=== PATIENT | female | born 1985 | race Caucasian/White ===

== ENCOUNTER → 2017-10-18 16:36 | Outpatient (CLI) | payer BC, SELFPAY ==
[2017-10-18 18:02] LABS: hCG Titer Quant., Serum 5107 mIU/mL (<9 non-preg)
== END ==
PROVIDERS: Family Provider Family Medicine; PCP Family Medicine; Visit Provider Nurse Practitioner Women's Health
DX: Z34.90 Encounter for supervision of normal pregnancy, unspecified, unspecified trimester (principal)
CPT/HCPCS: 36415; 84702

== ENCOUNTER → 2017-11-05 18:13 | Outpatient (CLI) | payer BC, SELFPAY ==
[2017-11-05 20:42] LABS: Chlamydia Trachomatis by PCR Negative (Negative); Neisserai gonorrhoeae by PCR Negative (Negative); Probe Check PASS; Sample Adequacy Control PASS; Specimen Processing Control PASS
== END ==
PROVIDERS: Family Provider Family Medicine; PCP Family Medicine; Visit Provider Obstetrics & Gynecology
DX: Z34.90 Encounter for supervision of normal pregnancy, unspecified, unspecified trimester (principal)
CPT/HCPCS: 87086; 87088; 87186; 87491; 87591

== ENCOUNTER → 2017-12-05 10:56 | Outpatient (CLI) | payer BC, SELFPAY ==
[2017-12-05 11:51] LABS: Absolute Lymphocyte Count 1.95 X10^3/ul (0.83-4.51); Basophil# 0.02 X10^3/uL; Basophil% 0.3 % (0-1); Eosinophil# 0.19 X10^3/uL; Eosinophils% 2.4 % (0-5); Hemoglobin 12.4 g/dl (12.0-15.0); Lymphocyte # 1.95 X10^3/ul (4.0); Lymphocyte % 24.9 % (19-41); Mean Corp Hgb Conc 32.6 g/gl (32-36); Mean Corpuscular Hgb 28.6 pg (27.0-32.0); Mean Corpuscular Volume 87.6 fL (81-99); Mean Platelet Vol. 9.4 fl (6.2-12.0); Monocyte# 0.62 X10^3/uL; Monocyte% 7.9 % (0-10); Neutrophil # 5.03 X10^3/uL (2.7-7.7); Neutrophil % 64.4 % (47-70); Platelet Count 281 K/mm3 (150-450); RBC Distribution Width CV 15.3 % (11.6-14.6); RBC Distribution Width SD 49.4 fl (35.1-43.9); Red Blood Count 4.34 M/mm3 (4.2-5.4); White Blood Count 7.8 K/mm3 (4.4-11.0)
[2017-12-05 11:52] LABS: POSITIVE COUNT NO; POSITIVE DIFFERENTIAL NO; POSITIVE MORPHOLOGY NO
[2017-12-05 12:33] LABS: T4 Free Direct 1.16 ng/dL (0.76-1.46)
[2017-12-05 13:27] LABS: HIV - WCH Non-Reactive (Nonreactive)
[2017-12-06 13:50] LABS: HEPATITIS B SURFACE AG Negative (Negative)
[2017-12-07 03:47] LABS: Rapid Plasmin Reagin (RPR) NONREACTIVE (NONREACTIVE)
== END ==
PROVIDERS: Family Provider Family Medicine; PCP Family Medicine; Visit Provider Obstetrics & Gynecology
DX: O09.91 Supervision of high risk pregnancy, unspecified, first trimester (principal); Z3A.00 Weeks of gestation of pregnancy not specified
CPT/HCPCS: 36415; 84439; 84443; 85025; 86592; 86703; 86762; 86850; 86900; 87340

== ENCOUNTER → 2017-12-31 18:11 | Outpatient (CLI) | payer BC, SELFPAY | PROVIDERS: Visit Provider Obstetrics & Gynecology | DX: O09.90 Supervision of high risk pregnancy, unspecified, unspecified trimester (principal); Z3A.00 Weeks of gestation of pregnancy not specified | CPT/HCPCS: 87086; 87088 ==

== ENCOUNTER → 2018-01-28 13:51 | Outpatient (CLI) | payer BC, SELFPAY | PROVIDERS: Family Provider Family Medicine; PCP Family Medicine; Visit Provider Obstetrics & Gynecology | DX: O09.92 Supervision of high risk pregnancy, unspecified, second trimester (principal); Z3A.19 19 weeks gestation of pregnancy | CPT/HCPCS: 76805 ==

== ENCOUNTER → 2018-02-25 15:56 | Outpatient (CLI) | payer BC, SELFPAY | PROVIDERS: Family Provider Family Medicine; PCP Family Medicine; Visit Provider Obstetrics & Gynecology | DX: O23.40 Unspecified infection of urinary tract in pregnancy, unspecified trimester (principal); Z3A.00 Weeks of gestation of pregnancy not specified | CPT/HCPCS: 87086; 87088 ==

== ENCOUNTER → 2018-04-08 12:25 | Outpatient (CLI) | payer BC, SELFPAY ==
[2018-04-08 13:30] LABS: Absolute Neutrophil Count 6.4 X10^3/uL (2.0-7.7); Eosinophil# 0.11 X10^3/uL; Eosinophils% 1.3 % (0-5); Hematocrit 35.9 % (37-47); Hemoglobin 11.8 g/dl (12.0-15.0); Lymphocyte % 18.5 % (19-41); Mean Corp Hgb Conc 32.9 g/gl (32-36); Mean Corpuscular Volume 88.2 fL (81-99); Mean Platelet Vol. 9.3 fl (6.2-12.0); Monocyte# 0.56 X10^3/uL; Monocyte% 6.5 % (0-10); Neutrophil # 6.37 X10^3/uL (2.7-7.7); Neutrophil % 73.4 % (47-70); Platelet Count 234 K/mm3 (150-450); RBC Distribution Width CV 14.3 % (11.6-14.6); RBC Distribution Width SD 46.5 fl (35.1-43.9); Red Blood Count 4.07 M/mm3 (4.2-5.4); White Blood Count 8.7 K/mm3 (4.4-11.0)
[2018-04-08 13:39] LABS: Glucose Challenge Gest 1H 50g 160 mg/dL (70-140)
[2018-04-08 13:45] LABS: POSITIVE COUNT NO; POSITIVE DIFFERENTIAL NO; POSITIVE MORPHOLOGY NO
== END ==
PROVIDERS: Nurse Practitioner Women's Health; Family Provider Family Medicine; PCP Family Medicine; Referring Provider Obstetrics & Gynecology; Visit Provider Obstetrics & Gynecology
DX: O09.90 Supervision of high risk pregnancy, unspecified, unspecified trimester (principal); Z3A.00 Weeks of gestation of pregnancy not specified
CPT/HCPCS: 36415; 82950; 85025; 86850; 86900

== ENCOUNTER → 2018-04-15 10:02 | Outpatient (CLI) | payer BC, SELFPAY ==
[2018-04-15 11:06] LABS: Glucose GTT-Gestation. Fasting 82 mg/dL (<105)
[2018-04-15 11:55] LABS: Glucose GTT-Gestational 1 Hr 181 mg/dL (<190)
[2018-04-15 13:07] LABS: Glucose GTT-Gestational 2 Hr 130 mg/dL (<165)
[2018-04-15 13:43] LABS: Glucose GTT-Gestational 3 Hr 97 L (<145)
== END ==
PROVIDERS: Family Provider Family Medicine; PCP Family Medicine; Referring Provider Nurse Practitioner Women's Health; Visit Provider Nurse Practitioner Women's Health
DX: O99.810 Abnormal glucose complicating pregnancy (principal); Z3A.00 Weeks of gestation of pregnancy not specified
CPT/HCPCS: 36415; 82951; 82952

== ENCOUNTER → 2018-04-29 18:28 | Outpatient (CLI) | payer BC, SELFPAY | PROVIDERS: Family Provider Family Medicine; PCP Family Medicine; Referring Provider Nurse Practitioner Women's Health; Visit Provider Nurse Practitioner Women's Health | DX: O23.599 Infection of other part of genital tract in pregnancy, unspecified trimester (principal); N76.0 Acute vaginitis; Z3A.00 Weeks of gestation of pregnancy not specified | CPT/HCPCS: 87086; 87088 ==

== ENCOUNTER → 2018-05-29 17:01 | Outpatient (CLI) | payer SELFPAY ==
[2018-05-29 13:12] VITALS: BMI 31.1
--- OUTSIDE RECORDS SUMMARY | 2018-07-15 22:11 | XMS RPT_ITS ---
:1985 Author Organization [place] Support Name Relationship Address Phone DEANN, LIZA Unavailable Unavailable + [place] [address] [facility] [place] Unavailable [address] + [place] [address] RADHA JANNET Unavailable [address] + [place] [address] DEANN, LIZA Unavailable Unavailable + [place] [address] [facility] [place] Unavailable [address] + [place] [address] MARJORIEER JANNET Unavailable [address] + [place] [address] DEANN, LIZA Unavailable Unavailable + [place] [address] [facility] [place] Unavailable [address] + [place] [address] RADHA JANNET Unavailable [address] + [place] [address] DEANN, LIZA Unavailable Unavailable + [place] [address] [facility] [place] Unavailable [address] + [place] [address] MARJORIEER JANNET Unavailable [address] + [place] [address] DEANN, LIZA Unavailable Unavailable + [place] [address] [facility] [place] Unavailable [address] + [place] [address] RADHA JANNET Unavailable [address] + [place] [address] DEANN, LIZA Unavailable 0 + [place] [address] [facility] [place] Unavailable [address] + [place] [address] DEANN, LIZA Unavailable Unavailable + [place] [address] [facility] [place] Unavailable [address] + [place] [address] DEANN, LIZA Unavailable 0 + [place] [address] [facility] [place] Unavailable [address] + [place] [address] DEANN, LIZA Unavailable . + [place] [address] [facility] [place] Unavailable [address] + [place] [address] DEANN, LIZA Unavailable Unavailable + [place] [address] [facility] [place] Unavailable [address] + [place] [address] DEANN, LIZA Unavailable . + [place] [address] [facility] [place] Unavailable [address] + [place] [address] DEANN, LIZA Unavailable . + [place] [address] [facility] [place] Unavailable [address] + [place] [address] DEANN, LIZA Unavailable Unavailable + [place] [address] [facility] [place] Unavailable [address] + [place] [address] DEANN, LIZA Unavailable Unavailable + [place] [address] [facility] [place] Unavailable [address] + [place] [address] DEANN, LIZA Unavailable . + [place] [address] [facility] [place] Unavailable [address] + [place] [address] DEANN, LIZA Unavailable Unavailable + [place] [address] [facility] [place] Unavailable [address] + [place] [address] DEANN, LIZA Unavailable . + [place] [address] [facility] [place] Unavailable [address] + [place] [address] DEANN, LIZA Unavailable . + [place] [address] [facility] [place] Unavailable [address] + [place] [address] DEANN, LIZA Unavailable Unavailable + [place] [address] [facility] [place] Unavailable [address] + [place] [address] DEANN, LIZA Unavailable Unavailable + [place] [address] [facility] [place] Unavailable [address] + [place] [address] DEANN, LIZA Unavailable . + [place] [address] [facility] [place] Unavailable [address] + [place] [address] DEANN, LIZA Unavailable Unavailable + [facility] [place] Unavailable [address] + [place] [address] DEANN, LIZA Unavailable Unavailable + [facility] [place] Unavailable [address] + [place] [address] [facility] [place] Unavailable . + [place] [address] [facility] [place] Unavailable . + [place] [address] [facility] [place] Unavailable / + [place] [address] [facility] [place] Unavailable / + [place] [address] [facility] [place] Unavailable / + [place] [address] RUFENER, JANNET Unavailable [address] + [place] [address] [facility] Unavailable Unavailable Unavailable Deann, Lzia Unavailable Unavailable + Deann, Liza Unavailable Unavailable + JANNET WILEY Unavailable [address] + [place] [address] [facility] Unavailable Unavailable Unavailable Care Team Providers Name Role Phone [place] Attending Unavailable Finneran, Landon Referring Unavailable Finneran, Landon Primary Care Unavailable MidhaJana Attending Unavailable Finneran, Landon Referring Unavailable Finneran, Landon Primary Care Unavailable Marcanthony, Shruthi Attending Unavailable Finneran, Landon Referring Unavailable Marcanthony, Shruthi Attending Unavailable Marcanthony, Shruthi Referring Unavailable Finneran, Landon Primary Care Unavailable Marcanthony, Shruthi Attending Unavailable Finneran, Landon Referring Unavailable Marcanthony, Shruthi Admitting Unavailable Marcanthony, Shruthi Attending Unavailable Marcanthony, Shruthi Referring Unavailable Finneran, Landon Primary Care Unavailable Marcanthony, Shruthi Attending Unavailable Finneran, Landon Primary Care Unavailable Marcanthony, Shruthi Referring Unavailable Marcanthony, Shruthi Attending Unavailable Marcanthony, Shruthi Referring Unavailable Finneran, Landon Primary Care Unavailable Marcanthony, Shruthi Admitting Unavailable Marcanthony, Shruthi Admitting Unavailable Marcanthony, Shruthi Attending Unavailable Marcanthony, Shruthi Referring Unavailable Finneran, Landon Primary Care Unavailable Marcanthony, Shruthi Consulting Unavailable Marcanthony, Shruthi Admitting Unavailable KevanMayra Attending Unavailable Marcanthony, Shruthi Referring Unavailable Finneran, Landon Primary Care Unavailable Marcanthony, Shruthi Consulting Unavailable KevanMayra Attending Unavailable Primay Care Physicia, No Referring Unavailable Primay Care Physicia, No Primary Care Unavailable RobardsMayra Attending Unavailable RobardsMarryy Referring Unavailable Finneran, Landon Primary Care Unavailable Marcanthony, Shruthi Attending Unavailable Finneran, Landon Referring Unavailable Marcanthony, Shruthi Attending Unavailable Finneran, Landon Referring Unavailable Finneran, Landon Primary Care Unavailable Marcanthony, Shruthi Attending Unavailable Finneran, Landon Primary Care Unavailable Marcanthony, Shruthi Attending Unavailable Finneran, Landon Referring Unavailable Finneran, Landon Primary Care Unavailable Marcanthony, Shruthi Attending Unavailable Marcanthony, Shruthi Referring Unavailable Finneran, Landon Primary Care Unavailable CIANCONEMANDY Attending Unavailable Finneran, Landon Primary Care Unavailable Marcanthony, Shruthi Attending Unavailable Finneran, Landon Referring Unavailable Finneran, Landno Primary Care Unavailable Marcanthony, Shruthi Attending Unavailable Finneran, Landon Primary Care Unavailable Marcanthony, Shruthi Referring Unavailable Kevan, Mayra Attending Unavailable Primay Care Physicia, No Referring Unavailable Primay Care Physicia, No Primary Care Unavailable Marcanthony, Shruthi Attending Unavailable Marcanthony, Shruthi Referring Unavailable Finneran, Landon Primary Care Unavailable Marcanthony, Shruthi Attending Unavailable Finneran, Landon Referring Unavailable Finneran, Landon Primary Care Unavailable Marcanthony, Shruthi Attending Unavailable Finneran, Landon Referring Unavailable Finneran, Landon Primary Care Unavailable Marcanthony, Shruthi Attending Unavailable Marcanthony, Shruthi Referring Unavailable Finneran, Landon Primary Care Unavailable Robards, Mayra Attending Unavailable Finneran, Landon Referring Unavailable Marcanthony, Shruthi Attending Unavailable Marcanthony, Shruthi Referring Unavailable Finneran, Landon Primary Care Unavailable Kevan, Mayra Attending Unavailable Kevan, Mayra Referring Unavailable Finneran, Landon Primary Care Unavailable Marcanthony, Shruthi Attending Unavailable Finneran, Landon Referring Unavailable Robards, Mayra Attending Unavailable Finneran, Landon Referring Unavailable Kevan, Mayra Attending Unavailable Finneran, Landon Primary Care Unavailable Kevan, Mayra Referring Unavailable Kevan, Mayra Attending Unavailable Finneran, Landon Referring Unavailable PROBLEMS PROBLEMS DATE TYPE CONDITION / CODE ATTENDING STATUS SOURCE 06/15/2018 Unknown O09.893 - [place], Active [facility] Supervision of [facility] risk Hospital pregnancies, third Repository trimester / O09.893(ICD-10) 06/14/2018 Unknown O09.899 - [place], Active [facility] Supervision of [facility] risk Hospital pregnancies, Repository unspecified trimester / O09.899(ICD-10) 06/14/2018 Unknown O99.89 - Other [place], Active [place] specified diseases [facility] and [facility] complicating Repository , childbirth and the puerperium / O99.89(ICD-10) 06/14/2018 Unknown R82.71 - Marcanthony, Active [place] Bacteriuria / [facility] R82.71(ICD-10) Hospital Repository 06/14/2018 Unknown Z3A.36 - 36 weeks Marcanthony, Active [place] gestation of [facility] / Hospital Z3A.36(ICD-10) Repository 06/14/2018 Unknown E03.9 - Marcanthony, Active [place] Hypothyroidism, [facility] unspecified / Hospital E03.9(ICD-10) Repository 06/14/2018 Unknown O09.93 - Marcanthony, Active [place] Supervision of [facility] high risk Hospital , Repository unspecified, third trimester / O09.93(ICD-10) 06/14/2018 Unknown O99.810 - Abnormal Marcanthony, Active [place] glucose [facility] complicating Hospital / Repository O99.810(ICD-10) 06/14/2018 Unknown O99.343 - Other Marcanthony, Active [place] mental disorders [facility] complicating Hospital , third Repository trimester / O99.343(ICD-10) 06/14/2018 Unknown F32.9 - Major Marcanthony, Active [place] depressive [facility] disorder, single Hospital episode, Repository unspecified / F32.9(ICD-10) 06/14/2018 Unknown B95.1 - Marcanthony, Active [place] Streptococcus, [facility] group B, as the Hospital cause of diseases Repository classified elsewhere / B95.1(ICD-10) 05/31/2018 Unknown Z34.90 - Encounter Marcanthony, Active [place] for supervision of [facility] normal , Hospital unspecified, Repository unspecified trimester / Z34.90(ICD-10) 04/30/2018 Unknown O23.599 - Robards, Mayra Active [facility] Infection of other Community part of genital Hospital tract in Repository , unspecified trimester / O23.599(ICD-10) 04/30/2018 Unknown N76.0 - Acute Kevan, Mayra Active [facility] vaginitis / Community N76.0(ICD-10) Hospital Repository 04/17/2018 Unknown Z67.91 - Marcanthony, Active [facility] Unspecified blood [facility] type, Rh negative Hospital / Z67.91(ICD-10) Repository 04/17/2018 Unknown Z3A.30 - 30 weeks Eliot, Active [place] gestation of [facility] / Hospital Z3A.30(ICD-10) Repository 04/08/2018 Unknown O09.90 - Mayra Mathur Active [place] Supervision of [facility] , Repository unspecified, unspecified trimester / O09.90(ICD-10) 04/08/2018 Unknown Z23 - Encounter Mayra Mathur Active [place] for immunization / Community Z23(ICD-10) Hospital Repository 02/25/2018 Unknown O23.40 - [facility], Active [facility] Unspecified [facility] infection of Hospital urinary tract in Repository , unspecified trimester / O23.40(ICD-10) 02/25/2018 [facility] other [facility] Hospital pregnancies, Repository second trimester / O09.892(ICD-10) 02/25/2018 Unknown O09.92 - [place], Active [facility] Supervision of [facility] Hospital , Repository unspecified, second trimester / O09.92(ICD-10) 02/25/2018 Unknown Z3A.23 - 23 weeks [place], Active [facility] gestation of [facility] / Hospital Z3A.23(ICD-10) Repository 12/05/2017 Unknown O09.891 - [place], Active [place] Supervision of [facility] risk Hospital pregnancies, first Repository trimester / O09.891(ICD-10) 12/05/2017 Unknown O09.91 - [place], Active [place] Supervision of [facility] risk Hospital , Repository unspecified, first trimester / O09.91(ICD-10) 10/11/2017 Admitting Thyrotoxicosis, Midha, Jana [facility] unsp without System thyrotoxic crisis Repository or storm / E05.90(ICD-10) 10/11/2017 Admitting Thyroiditis, Midha, Jana Active [facility] Health Diagnosis unspecified / System E06.9(ICD-10) Repository PROCEDURES PROCEDURES No Procedure Records FoundRESULTS RESULTS DISCHARGE INSTRUCTION Observed: 06/17/2018 Status: F Source: REJI 3:40 AM [facility] REPOSITORY [facility] Medical Records Department [address] [place] [address] Instructions for Home/Discharge Instructions 06/17/18 0340 MR#: [id number] Acct: [id number] Name: ELIEL WILEY Rep #: [id number] : 1985 33 From: Shruthi Mccabe MD PCP: Landon Bourgeois MD Status: ADM IN Discharge Diet: No Restrictions Discharge Activity: Return to Normal Activity, May not drive while taking narcotic pain medications., May Shower May resume sexual activity in: 4-6 weeks Call your doctor if your incision/area has: Continuous Slow Oozing, Sudden Increased Bleeding, Increased Pain/ Swelling, Increased Redness, Foul Smelling Discharge Additional Instructions: If you experience any of the following, contact your healthcare provider. * Bleeding that soaks a pad every hour for 2 hours * Fever 100.4 or higher * Unrelieved incision or abdominal pain * Swelling, redness, discharge or bleeding from your incision or episiotomy site * Your incision begins to separate * Problems urinating (including inability to urinate or burning while urinating). * Visual changes * Severe headache * Flu-like symptoms * Pain or redness in one of both of your breasts * Pain, warmth, tenderness or swelling in your legs, especially the calf area * Frequent nausea and vomiting * Symptoms of depression or anxiety If you experience any of the following, call 911 or go to the nearest Emergency Room. * Chest pain * Problems breathing * Seizure activity * Partial or complete paralysis of a body part, slurred speech, weakness or drooping of the face, or a sudden inability to walk or hold your balance Allergies/Adverse Reactions: Allergies sertraline [From Zoloft] Allergy (Verified 06/14/18 11:41) Other dizziness, fainting alcohol Adverse Reaction (Verified 06/14/18 11:41) Other redness from topical rubbing alcohol Medications to take at Discharge Calcium Carbonate [Calcium] 500 mg PO DAILY 02/01/17 ascorbic acid (vitamin C) 500 mg capsule mg PO 10/18/17 cholecalciferol (vitamin D3) 2,000 unit capsule 2,000 unit PO QDAY 10/18/17 escitalopram 10 mg tablet 10 mg PO QDAY 10/18/17 lactobacillus combination no.8 3 billion cell capsule 3,000 mmu cells PO QDAY 10/18/17 levothyroxine 125 mcg capsule 125 mcg PO QDAY 10/18/17 magnesium oxide 400 mg capsule 400 mg PO QDAY cap 10/18/17 multivitamin tablet 1 tab PO QDAY 10/18/17 omega-3 fatty acids 1,000 mg capsule 1,000 mg PO QDAY 10/18/17 Nasal spray INTRANASAL 12/05/17 Nature Made Cranberry .ROUTE 12/05/17 guaifenesin 100 mg/5 mL oral liquid 200 mg PO Q4H PRN 04/08/18 ondansetron HCl 4 mg tablet 4 mg PO Q6H PRN #60 tab 04/08/18 Citalopram [Celexa] 20 mg PO DAILY #30 tab 06/04/18 Please Follow Up With: Shruthi Mccabe MD - [phone] When: Call to make an appointment with your doctor in 6 weeks. If you had elevated Blood pressure or 4th degree laceration you will need to be seen in 2 weeks. Primary Care Physician: Landon Bourgeois MD [Primary Care Provider] - Test Results: Test results from this visit will be discussed in further detail at your follow-up appointment, if applicable. 06/17/18 0340 <Electronically signed by Shruthi Mccabe MD> Date Shruthi Mccabe MD CC: Landon Bourgeois; Landon Bourgeois MD Signed THYROID STIM HORMONE Collected: 06/16/2018 Status: F Source: [place] (TSH) 7:45 AM [facility] REPOSITORY TYPE CODE TESTS RESULT OUT OF RANGE REFERENCE UNITS LAB L501.9520 0.358-3.74 uIU/mL Normal TSH 2.26 Performed By: #### L501.9520, L506.0400 #### [facility] [address] [place], [address] T4 FREE DIRECT Collected: 06/16/2018 Status: F Source: [place]JI 7:45 AM [facility] REPOSITORY TYPE CODE TESTS RESULT OUT OF RANGE REFERENCE UNITS LAB L506.0400 0.76-1.46 ng/dL Normal T4 FREE 0.92 DIRECT Performed By: #### L501.9520, L506.0400 #### [facility] [address] [place], [address] RH NEGATIVE MOM Collected: 06/16/2018 Status: F Source: [place] WORKUP 7:45 AM [facility] REPOSITORY Order Comment: Baby's Full Name travon wiley Baby's Bracelet # [id number] Baby's MR # [id number] TYPE CODE TESTS RESULT OUT OF RANGE REFERENCE UNITS LAB B101.0425 O Normal MOM'S ABO NEGATIVE RH LAB B101.0450 Normal MOM'S ABS NEGATIVE LAB B101.0500 NEGATIVE Normal NEGATIVE SCREEN LAB B101.0950 O Normal BABY'S POSITIVE ABO RH LAB B101.1000 NEGATIVE Normal BABY'S NEGATIVE JORDAN Performed By: #### B101.0300 #### [facility] [address] [place], [address] OPERATIVE REPORT Observed: 06/16/2018 Status: F Source: REJI 6:47 AM [facility] REPOSITORY [facility] Medical Records Department [address] [place] [address] Operative Report 06/16/18 0645 MR#: [id number] Acct: [id number] Name: ELIEL WILEY Rep #: [id number] : 1985 33 From: Shruthi Mccabe MD PCP: Landon Bourgeois MD Status: ADM IN Location: [id number] - Problem List (1) Active labor at term Status: Acute (2) Positive GBS test Status: Acute (3) Depression affecting in third trimester, antepartum Status: Acute Comment: lexapro per PCP, counseled regarding risks of medication, counseling encouraged (4) Abnormal glucose affecting Status: Acute Comment: 3 hr GTT ordered (5) Status: Acute Qualifiers: Comment: genetic, carrier, and NT screening declined (6) Rh negative status during Status: Acute Qualifiers: Comment: rhogam at 28 weeks and PRN (7) Short interval between pregnancies affecting , antepartum Status: Acute (8) Supervision of high-risk Status: Acute Qualifiers: Comment: PRR JANKI 06/22/18 Girl PC Erika Adames (9) Asymptomatic bacteriuria during in first trimester Status: Acute Comment: macrobid, needs repeat culture (10) Hypothyroid Status: Acute Qualifiers: Comment: Started levothyroxine 10/18/17 Vaginal Delivery Maternal Presentation: Active Labor 33-year-old at 39 weeks presents in active labor and delivered precipitously Amniotic Membrane Rupture Type: Spontaneous Amniotic Fluid Description: Clear Final JANKI: 06/22/18 Gestational age: 39 Weeks and 1 Days Date of Procedure: 06/16/18 Pre-Operative Diagnosis: Active labor Post-Operative Diagnosis: Same Surgery/ Procedure Performed: Spontaneous Vaginal Delivery Type of Anesthesia: None Description of Procedure: Patient began pushing and delivered the head in the JEFFREY presentation. The head was delivered atraumatically and a loose nuchal cord x1 was easily identified and reduced over the 's head. The anterior and posterior shoulders delivered without complication followed by the rest of the and the was placed on the maternal abdomen. Delayed cord clamping was employed for approximately 60 seconds. Cord was clamped and cut and gentle traction was applied to the cord and the placenta delivered spontaneously immediately following it was noted to be intact with three-vessel cord. The perineum and vagina were inspected and noted to have no significant laceration. EBL was 150 cc. Patient and infant tolerated delivery well. Presentation: JEFFREY Placental Delivery Description: Spontaneous Placenta Disposition: [facility] Cord Vessel Description: 3 Vessels Cord Entanglement: Around neck x 1, loose Estimated Blood Loss: 150 Infant A gender: Female Episiotomy Description: None Laceration: None Medications given after delivery: IV Pitocin Complications: None 06/16/18 0647 <Electronically signed by Shruthi Mccabe MD> Date Shruthi Mccabe MD CC: Landon Bourgeois; Landon Bourgeois MD; Shruthi Mccabe MD Signed HISTORY AND PHYSICAL Observed: 06/16/2018 Status: F Source: [place] EXAM 6:45 AM [facility] REPOSITORY [facility] Medical Records Department [address] [place] [address] History and Physical 06/16/18 0642 MR#: [id number] Acct: [id number] Name: ELIEL WILEY Rep #: [id number] : 1985 33 From: Shruthi Mccabe MD PCP: Landon Bourgeois MD Status: ADM IN Y [id number] (1) Active labor at term Status: Acute (2) Positive GBS test Status: Acute (3) Depression affecting in third trimester, antepartum Status: Acute Comment: lexapro per PCP, counseled regarding risks of medication, counseling encouraged (4) Abnormal glucose affecting Status: Acute Comment: 3 hr GTT ordered (5) Status: Acute Qualifiers: Comment: genetic, carrier, and NT screening declined (6) Rh negative status during Status: Acute Qualifiers: Comment: rhogam at 28 weeks and PRN (7) Short interval between pregnancies affecting , antepartum Status: Acute (8) Supervision of high-risk Status: Acute Qualifiers: Comment: PRR JANKI 06/22/18 Girl PC Erika Adames (9) Asymptomatic bacteriuria during in first trimester Status: Acute Comment: macrobid, needs repeat culture (10) Hypothyroid Status: Acute Qualifiers: Comment: Started levothyroxine 10/18/17 History Date of Admission: 06/16/18 Final JANKI: 06/22/18 Gestational age: 39 Weeks and 1 Days History of this : This is a 33 year-old, at 39w1d weeks gestational age presents in active labor and was initially 3 cm and then may change to complete within an hour and delivered precipitously without complication. Medical History: Medical History (Last Reviewed 06/14/18 @ 11:41 by Cassy Pollard) Anixety and Depression Hypothyroidism E03.9 Allergies sertraline [From Zoloft] Allergy (Verified 06/14/18 11:41) Other dizziness, fainting alcohol Adverse Reaction (Verified 06/14/18 11:41) Other redness from topical rubbing alcohol Home Medications: Home Medications Calcium Carbonate [Calcium] 500 mg PO DAILY 02/01/17 ascorbic acid (vitamin C) 500 mg capsule mg PO 10/18/17 cholecalciferol (vitamin D3) 2,000 unit capsule 2,000 unit PO QDAY 10/18/17 escitalopram 10 mg tablet 10 mg PO QDAY 10/18/17 lactobacillus combination no.8 3 billion cell capsule 3,000 mmu cells PO QDAY 10/18/17 levothyroxine 125 mcg capsule 125 mcg PO QDAY 10/18/17 magnesium oxide 400 mg capsule 400 mg PO QDAY cap 10/18/17 multivitamin tablet 1 tab PO QDAY 10/18/17 omega-3 fatty acids 1,000 mg capsule 1,000 mg PO QDAY 10/18/17 Nasal spray INTRANASAL 12/05/17 Nature Made Cranberry .ROUTE 12/05/17 guaifenesin 100 mg/5 mL oral liquid 200 mg PO Q4H PRN 04/08/18 ondansetron HCl 4 mg tablet 4 mg PO Q6H PRN #60 tab 04/08/18 Citalopram [Celexa] 20 mg PO DAILY #30 tab 06/04/18 Smoking Status: Never smoker Alcohol: None Number of Fetus(es): 1 Heart Tracins moderate variability reactive no decelerations category 1 tracing TOCO Analysis: Every 2 to 3 minutes History Past Pregnancies: Past Pregnancies Previous term vaginal delivery uncomplicated Labs: Laboratory Results Mom's Labs AND Results Course Did the patient receive Yes care? Labs HIV/AIDS Non-Reactive Current Obstetrical History Gestational Diabetes No Incompetent Cervix No Infertility No IUGR No Macrosomia No Hypertension/Pre-eclampsia No Placenta Previa/Abruption No PTL/PROM No Uterine anomaly No Oligohydramnios No Polyhydramnios No Multiple gestation No Past Medical History Asthma No Diabetes No Hypertension No Heart disease No Mitral valve prolapse No Neurologic/Seizure disorder/ No Migraines Kidney disease No Liver disease No Varicosities No Clotting disorders/Hx of DVT No Thyroid Dysfunction Yes: should be taking synthroid Other medical diseases No Psychiatric disorders No Major trauma No Abnormal PAP smear No Sleep apnea No Mammogram in the last 2 years No Social History Marital Status: Alleged father jannet wiley Hx Smoking No Smoking Status Never smoker Expected Delivery Method: Spontaneous Vaginal Review of Systems Constitutional: Denies: Fever, Malaise Eyes: Denies: Blurred vision, Vision Change HEENT: Denies: Head Aches, Visual Changes Cardiovascular: Denies: Chest Pain, Palpitations Respiratory: Denies: Cough, Shortness of Breath, Wheezing Gastrointestinal: Denies: Abdominal Pain, Diarrhea, Nausea, Vomiting Genitourinary: Denies: Dysuria, Hematuria Musculoskeletal: Denies: Joint Pain, Muscle pain Skin: Denies: Lesions, Rash Neurological: Denies: Blurred vision, Focal weakness, Headaches Psychiatric: Denies: Anxiety, Depression Endocrine: Denies: Heat/ Cold Intolerance Hematologic/ Lymphatic: Denies: Easy Bruising, Easy Bleeding Physical Exam General: Alert, Cooperative, No apparent distress HEENT: Atraumatic, Normocephalic. Negative for: Thyromegaly, Lymphadenopathy Cardiovascular: Regular rate Lungs: Normal air movement Abdomen: Soft, Non Tender, Gravid Neurological: Deep Tendon Reflexes 2+/4 and Symmetrical, Neuro grossly intact. 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 Negative for: Vulvar lesions Estimated gestational size: Appropriate for gestational size Presentation: Cephalic Assessment/Plan All Active Problems (Last Reviewed 06/14/18 @ 11:41 by Cassy Pollard) Active labor at term (Acute) Positive GBS test (Acute) Depression affecting in third trimester, antepartum (Acute) Abnormal glucose affecting (Acute) (Acute) Rh negative status during (Acute) Short interval between pregnancies affecting , antepartum (Acute) Supervision of high-risk (Acute) Asymptomatic bacteriuria during in first trimester (Acute) Hypothyroid (Acute) This is a 33 year-old, at 39 weeks gestational age presents in active labor and delivered precipitously within an hour and a half of presentation Routine care GBS positive did not receive antibiotics but water was only broken approximately 10-15 minutes prior to delivery of the Rh-. 06/16/18 0645 <Electronically signed by Shruthi Mccabe MD> Date Shruthi Mccabe MD Cosigner Signature: Date (if applicable) CC: Landon Bourgeois; Landon Bourgeois MD; Shruthi Mccabe MD Signed CBC W/DIFF, AUTOMATED Collected: 06/16/2018 Status: F Source: REJI 4:15 AM [facility] [place] REPOSITORY TYPE CODE TESTS RESULT OUT OF RANGE REFERENCE UNITS LAB L100.1000 4.4-11.0 K/mm3 Normal WBC 9.9 LAB L100.1200 4.2-5.4 M/mm3 Normal RBC 4.57 LAB L100.1300 12.0-15.0 g/dl Normal HGB 13.1 LAB L100.1400 37-47 % Normal HCT 39.3 LAB L100.1500 81-99 fL Normal MCV 86.0 LAB L100.1600 27.0-32.0 pg Normal MCH 28.7 LAB L100.1700 32-36 g/gl Normal MCHC 33.3 LAB L100.1810 11.6-14.6 % Normal RDW CV 14.3 LAB L100.1820 35.1-43.9 fl High RDW SD 44.0 LAB L100.1900 150-450 K/mm3 Normal PLT 253 LAB L100.2000 6.2-12.0 fl Normal MPV 10.2 LAB L100.2100 47-70 % High NEUT% 77.0 LAB L100.2200 19-41 % Low LY% 16.0 LAB L100.2300 0-10 % Normal MONO% 6.4 LAB L100.2400 0-5 % Normal EO% 0.2 LAB L100.2500 0-1 % Normal BASO% 0.1 LAB L100.2550 0.0-0.9 % Normal IM GRAN % 0.300 Result Comment: IG% - Immature Granulocytes (promyelocytes, myelocytes and metamyelocytes) > 1% indicates that a LEFT SHIFT is Present. LAB L100.2620 2.0-7.7 X10 3/uL Normal Absolute Neut 7.7 LAB L100.2720 0.83-4.51 X10 3/ul Normal Absolute Lymph 1.59 Performed By: #### L100.0100 #### [facility] [address] [place], [address] COMPREHENSIVE METABOLIC Collected: 06/16/2018 Status: F [facility] [place] REPOSITORY TYPE CODE TESTS RESULT OUT OF RANGE REFERENCE UNITS LAB L501.0100 74-106 mg/dL High GLU 110 Result Comment: Fasting Glucose result from 100 to 125 mg/dL suggests IMPAIRED HOMEOSTASIS per A.D.A. criteria. Please note revised GLUCOSE reference range effective 2017. LAB L501.1000 7-18 mg/dL Normal BUN 12 LAB L501.1100 0.55-1.02 mg/dL Low CREAT,SERUM 0.52 Result Comment: The validity of the calculated GFR AND GFRAA in patients over 70 years has not been determined. Clinical correlation is essential. LAB L501.1110 >60 mL/min Normal EST GFR 145 Result Comment: Non- GFR Calc LAB L501.1115 >60 mL/min Normal EST GFR - AA 175 Result Comment: GFR Calc LAB L501.1255 ml/min Normal Estimated CRCL 135.36 LAB L501.1300 10-20 RATIO High BUN/CRE 22.9 LAB L501.1500 6.4-8. g/dL 2 T PROT Normal 7.3 LAB L501.1800 3.2-5. g/dL Low 0 ALB 3.0 LAB L501.1950 2.2-4. g/dL High 2 GLOB 4.3 LAB L501.2000 0.9-2. RATIO Low 4 A/G 0.7 LAB L501.2200 8.5-10 mg/dL .1 CA Normal 9.0 LAB L501.4100 15-37 U/L AST Normal 15 LAB L501.4305 45-117 U/L High ALK P 166 LAB L501.4405 13-56 U/L ALT Normal 17 LAB L501.4600 0.20-1 mg/dL .00 T BILI Normal 0.40 LAB L501.5300 136-14 mmol/L 5 NA Normal 136 LAB L501.5600 3.5-5. mmol/L 1 K Normal 3.6 LAB L501.5900 98-107 mmol/L CL Normal 102 LAB L501.6100 21.0-3 mmol/L Low 2.0 CO2 20.0 LAB L501.6200 5-15 GAP Normal 14 Performed By: #### L500.4050 #### [facility] [address] [place], [place], [id number] TYPE AND SCREEN Collected: 06/16/2018 Status: F Source: REJI 4:15 AM [facility] [place] REPOSITORY Order Comment: Reason for Type AND Screen/Red Cells: TYPE CODE TESTS RESULT OUT OF RANGE REFERENCE UNITS LAB B10.0800 O Normal BLOOD TYPE GEL NEGATIVE LAB B100.4000 Normal Antibody NEGATIVE Screen Performed By: #### B101.7450 #### [facility] [address] [place], [address] RHOGAM Collected: 06/16/2018 Status: F Source: REJI 12:00 AM [facility] [place] REPOSITORY TYPE CODE TESTS RESULT OUT OF REFERENCE UNITS RANGE LAB U100.2500 [id number] TRANSFUSED PRODUCT: Rho(D) Immune Globulin RhoGam COUNT: 1 Performed By: #### U100.2500 #### Non-[facility] - refer to report for specific site GROUP B STREP DNA Collected: 06/14/2018 Status: F Source: REJI BY PCR 6:04 PM [facility] [place] REPOSITORY TYPE CODE TESTS RESULT OUT OF REFERENCE UNITS RANGE LAB L8200.0100 Negative High GBS TEST POSITIVE RESULT Result Comment: Penicillin is the recommended antibiotic for the treatment of Group B Streptococcal disease. In case of penicillin allergy, susceptibility testing for Clindamycin and Erythromycin is suggested by request. Performed By: #### L8200.0000 #### [facility] [address] [place], [address] FABRICATION SPECIALIST OFFICE VISIT Observed: 06/14/2018 Status: F Source: REJI REPORT 11:59 AM [facility] REPOSITORY [facility] [address] [place] [address] OFFICE VISIT Date of Service: 06/14/18 MR#: [id number] Acct: [id number] Name: ELIEL WILEY Rep #: [id number] : 1985 Provider: Shruthi Mccabe MD Age/Sex: 33/F [place] [facility] [place] Status: Signed Intake Vital Signs06/14/18 Body Mass Index (BMI) 31.1 06/14/18 Height 5 ft 4 in 06/14/18 Weight: 182 lb 12/28/18 Body Mass Index (BMI) 31.2 06/14/18 Blood Pressure 110/84 H Intake Visit Reasons: 37 WEEKS Filterer Required: No Is patient in pain?: No Allergies sertraline [From Zoloft] Allergy (Verified 06/14/18 11:41) Other alcohol Adverse Reaction (Verified 06/14/18 11:41) Other Medications Calcium Carbonate [Calcium] 500 mg PO DAILY 02/01/17 [History Confirmed 06/14/18] ascorbic acid (vitamin C) 500 mg capsule mg PO 10/18/17 [History Confirmed 06/14/18] cholecalciferol (vitamin D3) 2,000 unit capsule 2,000 unit PO QDAY 10/18/17 [History Confirmed 06/14/18] escitalopram 10 mg tablet 10 mg PO QDAY 10/18/17 [History Confirmed 06/14/18] lactobacillus combination no.8 3 billion cell capsule 3,000 mmu cells PO QDAY 10/18/17 [History Confirmed 06/14/18] levothyroxine 125 mcg capsule 125 mcg PO QDAY 10/18/17 [History Confirmed 06/14/18] magnesium oxide 400 mg capsule 400 mg PO QDAY cap 10/18/17 [History Confirmed 06/14/18] multivitamin tablet 1 tab PO QDAY 10/18/17 [History Confirmed 06/14/18] omega-3 fatty acids 1,000 mg capsule 1,000 mg PO QDAY 10/18/17 [History Confirmed 06/14/18] Nasal spray INTRANASAL 12/05/17 [History Confirmed 06/14/18] Nature Made Cranberry .ROUTE 12/05/17 [History Confirmed 06/14/18] guaifenesin 100 mg/5 mL oral liquid 200 mg PO Q4H PRN 04/08/18 [History Confirmed 06/14/18] ondansetron HCl 4 mg tablet 4 mg PO Q6H PRN #60 tab 04/08/18 [Rx Confirmed 06/14/18] Citalopram [Celexa] 20 mg PO DAILY #30 tab 06/04/18 [Rx Confirmed 06/14/18] Last Menstral Period: 08/15/17 Zika: Zika virus screening: Negative : No PFSH PFSH Medical History Anixety and Depression (Acute) Hypothyroidism (Chronic) Family History Unknown Diabetes Uncle Diabetes Social History Smoking Status: Never smoker alcohol intake: never substance use type: does not use caffeine: Yes what type of physical activity do you participate in: none seatbelt use: always do you feel safe at home: Yes additional social history: [facility] Pregan[facility] History 1 Elective abortions Hx Para 1 Spontaneous abortions Past Pregnancies Del. DatName GA/WeeksOutcome Route [facility] WeigInfant GLabor LgAnesthesDel LocaProviderFOB e ht en ia tn Unknown 2017 Syl40 live birNSVD via th - ful l term HPI 37 WEEKS: Details: ELIEL WILEY is a 33 year old who presents for routine OB visit. OB Visit JANKI Calculator Estimated Delivery Date 06/22/18 Based on Ultrasound Date 11/05/17 Current WG 38w 6d Number 1 Expected Delivery Route/Plan Specific Issue/Plans flu vaccine: given tdap vaccine: next visit rhogam: given LARC form signed: declines labor support person: Zacarias pain management: epidural cut cord/dad catch: : yes PP control planned: [] special requests: [] Initial Weight: 179 lb Date Weight BP Urine PrFHR FuHt Pres MoCTX DilationFetal StVisit NoProviderComments E ot v te [place] G Effac lucose ed Visit Notes Visit Date: 06/14/18 no vb lof good fm n oregular ctx Shruthi Mccabe MD on 06/14/18 Visit Date: 05/29/18 co increased mood symptoms- struggling with relationships at home and family tension. recommend switching to celexa and counseling referrals Shruthi Mccabe MD on 05/29/18 no vb lof good fm n roegualr ctx Shruthi Mccabe MD on 05/29/18 Visit Date: 05/15/18 No VB, LOF. Doing well Mayra Mathur NP-C on 05/15/18 Visit Date: 04/29/18 No VB, LOF. Had urinary discomfort a few days ago. Better now. Also dry cough, no fever. Mayra Mathur NP-C on 04/29/18 Visit Date: 04/17/18 no vb lof good fm no regular ctx Shruthi Mccabe MD on 04/17/18 Visit Date: 04/08/18 Nausea/vomiting problematic. No VB, LOF. ELICEO Covington on 04/08/18 Visit Date: 02/25/18 no vb lof good fm Shruthi Mccabe MD on 02/25/18 Visit Date: 01/28/18 Doing well. No VB, LOF. Had anatomy US today-Girl ELICEO Covington on 01/28/18 Visit Date: 12/31/17 no vb cramping Shruthi Mccabe MD on 12/31/17 Visit Date: 12/05/17 no vb lof no regular ctx Shruthi Mccabe MD on 12/05/17 Visit Date: 11/05/17 No visit notes to display ACOG First Trimester First Trimester: Discussed Diagnostics Diagnostics Labs Blood Type O NEGATIVE 04/08/18 Antibody Screen NEGATIVE 04/08/18 Hct 35.9 % (37-47) L 04/08/18 Hgb 11.8 g/dl (12.0-15.0) L 04/08/18 Obstetrics Ultrasound 01/28/18 Glucose 1 Hr 50 gm 160 mg/dL (70-140) H 04/08/18 Group B Strep DNA Cancelled 05/29/18 Details: HIV: Urine Culture: Sequential Screen: NIPT Screen: Results [id number] Office Urine Glucose Negative Last Edit by Cassy Pollard on 06/14/18 11:40 Office Urine Protein Negative Last Edit by Cassy Pollard on 06/14/18 11:40 Assessment AND Plan Problems 1. Rh negative status during in third trimester O09.893 rhogam at 28 weeks and PRN 2. Short interval between pregnancies affecting , antepartum O09.899 3. Abnormal glucose affecting O99.810 3 hr GTT ordered 4. Depression affecting in third trimester, antepartum O99.343; F32.9 lexapro per PCP, counseled regarding risks of medication, counseling encouraged 5. Asymptomatic bacteriuria during in first trimester O99.89; R82.71 macrobid, needs repeat culture 6. 36 weeks gestation of Z3A.36 genetic, carrier, and NT screening declined 7. Acquired hypothyroidism E03.9 Started levothyroxine 10/18/17 8. Supervision of high risk in third trimester O09.93 PRR JANKI 06/22/18 Girl PC Erika Zacarias 9. Positive GBS test B95.1 Plan movement and labor precautions reviewed. ACOG trimester education reviewed and updated. see problem list details for updated plan management information and see below for orders placed at this visit. [place] appropriate handout given. patient requested repeat gbs test Orders Orders: Coding Level of Care Code OB Routine Diagnoses Rh negative status during in third trimester O09.893 Trimester: third trimester Short interval between pregnancies affecting , antepartum O09.899 Abnormal glucose affecting O99.810 Depression affecting in third trimester, antepartum O99.343; F32.9 Asymptomatic bacteriuria during in first trimester O99.89; R82.71 36 weeks gestation of Z3A.36 Weeks of gestation: 36 weeks Acquired hypothyroidism E03.9 Hypothyroidism type: acquired Supervision of high risk in third trimester O09.93 Trimester: third trimester Positive GBS test B95.1 06/14/18 1159 <Electronically signed by Shruthi Mccabe MD> Date Shruthi Mccabe MD Cosigner Signature: Date (if applicable) CC: Observed: 05/29/2018 Status: F Source: [facility] 6:31 PM [facility] STREPTOCOCCUS REPOSITORY [place] Culture ORGANISM 1: Streptococcus agalactiae (B) Amount Growth Growth Streptococcus agalactiae (B): REACTION Ampicillin $ <=0.25 S Clindamycin $$ >=1 R Inducable Clindamycin Resistan - Linezolid $$$$ <=2 S Vancomycin $ 0.5 S (NF) indicates non-formulary drug at [facility]. Approval by Infectious Disease Specialist required before non-formulary drugs may be ordered and/or dispensed. * CLSI guidelines does not recommend testing of cephalosporins. This interpretation is deduced from Beta-lactam/penicillin results. Performed By: #### M100.1800 #### [facility] [address] [place], [address] FABRICATION SPECIALIST OFFICE VISIT Observed: 05/29/2018 Status: F Source: REJI REPORT 2:25 PM [facility] [place] REPOSITORY [facility] [address] [place] [address] OFFICE VISIT Date of Service: 05/29/18 MR#: [id number] Acct: [id number] Name: ELIEL WILEY Rep #: [id number] : 1985 Provider: Shruthi Mccabe MD Age/Sex: 33/F Location[place] [facility] [place] Status: Signed Intake Vital Signs05/29/18 Body Mass Index (BMI) 31.1 05/29/18 Height 5 ft 4 in 05/29/18 Weight: 183 lb 6 oz 05/29/18 Body Mass Index (BMI) 31.4 05/29/18 Blood Pressure 112/78 Intake Visit Reasons: 36 WEEKS Filterer Required: No Is patient in pain?: No Allergies sertraline [From Zoloft] Allergy (Verified 05/29/18 13:12) Other alcohol Adverse Reaction (Verified 05/29/18 13:12) Other Medications Calcium Carbonate [Calcium] 500 mg PO DAILY 02/01/17 [History Confirmed 05/29/18] ascorbic acid (vitamin C) 500 mg capsule mg PO 10/18/17 [History Confirmed 05/29/18] cholecalciferol (vitamin D3) 2,000 unit capsule 2,000 unit PO QDAY 10/18/17 [History Confirmed 05/29/18] escitalopram 10 mg tablet 10 mg PO QDAY 10/18/17 [History Confirmed 05/29/18] lactobacillus combination no.8 3 billion cell capsule 3,000 mmu cells PO QDAY 10/18/17 [History Confirmed 05/29/18] levothyroxine 125 mcg capsule 125 mcg PO QDAY 10/18/17 [History Confirmed 05/29/18] magnesium oxide 400 mg capsule 400 mg PO QDAY cap 10/18/17 [History Confirmed 05/29/18] multivitamin tablet 1 tab PO QDAY 10/18/17 [History Confirmed 05/29/18] omega-3 fatty acids 1,000 mg capsule 1,000 mg PO QDAY 10/18/17 [History Confirmed 05/29/18] Nasal spray INTRANASAL 12/05/17 [History Confirmed 05/29/18] Nature Made Cranberry .ROUTE 12/05/17 [History Confirmed 05/29/18] guaifenesin 100 mg/5 mL oral liquid 200 mg PO Q4H PRN 04/08/18 [History Confirmed 05/29/18] ondansetron HCl 4 mg tablet 4 mg PO Q6H PRN #60 tab 04/08/18 [Rx Confirmed 05/29/18] Last Menstral Period: 08/15/17 Zika: Zika virus screening: Negative : No PFSH PFSH Medical History Anixety and Depression (Acute) Hypothyroidism (Chronic) Family History Unknown Diabetes Uncle Diabetes Social History Smoking Status: Never smoker alcohol intake: never substance use type: does not use caffeine: Yes what type of physical activity do you participate in: none seatbelt use: always do you feel safe at home: Yes additional social history: [facility] Pregan[facility] History 1 Elective abortions Hx Para 1 Spontaneous abortions Past Pregnancies Del. DatName GA/WeeksOutcome [facility] LocaProviderFOB e ht en th ia tn Unknown 2017 Syl40 live birNSVD via th - ful l term HPI 36 WEEKS: Details: ELIEL WILEY is a 33 year old who presents for routine OB visit. OB Visit JANKI Calculator Estimated Delivery Date 06/22/18 Based on Ultrasound Date 11/05/17 Current WG 36w 4d Number 1 Expected Delivery Route/Plan Specific Issue/Plans flu vaccine: given tdap vaccine: next visit rhogam: given LARC form signed: declines labor support person: Zacarias pain management: epidural cut cord/dad catch: : yes PP control planned: [] special requests: [] Initial Weight: 179 lb Date Weight BP Urine PFHR FuHt Pres MCTX DilatioFetal SVisit NProvideComment rot ov n t ote r s EGA Ef Gluco faced se 11/05/1178 lb 128/64 8 (+0 oz) 7w 2d Visit Notes Visit Date: 05/29/18 co increased mood symptoms- struggling with relationships at home and family tension. recommend switching to celexa and counseling referrals Shruthi Mccabe MD on 05/29/18 no vb lof good fm n roegualr ctx Shruthi Mccabe MD on 05/29/18 Visit Date: 05/15/18 No VB, LOF. Doing well Mayra Mathur NP-C on 05/15/18 Visit Date: 04/29/18 No VB, LOF. Had urinary discomfort a few days ago. Better now. Also dry cough, no fever. Mayra Mathur NP-C on 04/29/18 Visit Date: 04/17/18 no vb lof good fm no regular ctx Shruthi Mccabe MD on 04/17/18 Visit Date: 04/08/18 Nausea/vomiting problematic. No VB, LOF. Mayra Mathur NP-C on 04/08/18 Visit Date: 02/25/18 no vb lof good fm Shruthi Mccabe MD on 02/25/18 Visit Date: 01/28/18 Doing well. No VB, LOF. Had anatomy US today-Girl DESIREE CovingtonC on 01/28/18 Visit Date: 12/31/17 no vb cramping Shruthi Mccabe MD on 12/31/17 Visit Date: 12/05/17 no vb lof no regular ctx Shruthi Mccabe MD on 12/05/17 Visit Date: 11/05/17 No visit notes to display ACOG First Trimester First Trimester: Discussed Diagnostics Diagnostics Labs Blood Type O NEGATIVE 04/08/18 Antibody Screen NEGATIVE 04/08/18 Hct 35.9 % (37-47) L 04/08/18 Hgb 11.8 g/dl (12.0-15.0) L 04/08/18 Obstetrics Ultrasound 01/28/18 Glucose 1 Hr 50 gm 160 mg/dL (70-140) H 04/08/18 Details: HIV: Urine Culture: Sequential Screen: NIPT Screen: Results [id number] Office Urine Glucose Negative Last Edit by Cassy Pollard on 05/29/18 13:18 Office Urine Protein Negative Last Edit by Cassy Pollard on 05/29/18 13:18 Assessment AND Plan Problems 1. Rh negative status during in third trimester O09.893 rhogam at 28 weeks and PRN 2. Short interval between pregnancies affecting , antepartum O09.899 3. Asymptomatic bacteriuria during in first trimester O99.89; R82.71 macrobid, needs repeat culture 4. 36 weeks gestation of Z3A.36 genetic, carrier, and NT screening declined 5. Acquired hypothyroidism E03.9 Started levothyroxine 10/18/17 6. Supervision of high risk in third trimester O09.93 PRR JANKI 06/22/18 Girl PC Erika Zacarias 7. Abnormal glucose affecting O99.810 3 hr GTT ordered 8. Depression affecting in third trimester, antepartum O99.343; F32.9 lexapro per PCP, counseled regarding risks of medication, counseling encouraged Plan ACOG trimester education reviewed and updated. see problem list details for updated plan management information and see below for orders placed at this visit. [place] appropriate handout given. Orders Orders: Coding Level of Care Code OB Routine Diagnoses Rh negative status during in third trimester O09.893 Trimester: third trimester Short interval between pregnancies affecting , antepartum O09.899 Asymptomatic bacteriuria during in first trimester O99.89; R82.71 36 weeks gestation of Z3A.36 Weeks of gestation: 36 weeks Acquired hypothyroidism E03.9 Hypothyroidism type: acquired Supervision of high risk in third trimester O09.93 Trimester: third trimester Abnormal glucose affecting O99.810 Depression affecting in third trimester, antepartum O99.343; F32.9 05/29/18 1425 <Electronically signed by Shruthi Mccabe MD> Date Shruthi Mccabe MD Cosigner Signature: Date (if applicable) CC: FABRICATION SPECIALIST OFFICE VISIT Observed: 05/15/2018 Status: F Source: REJI REPORT 12:23 PM [facility] [address] [place] [address] OFFICE VISIT Date of Service: 05/15/18 MR#: [id number] Acct: [id number] Name: ELIEL WILEY Rep #: [id number] : 1985 Provider: HANH Mathur Age/Sex: 33/F Location[place] [facility] [place] Status: Signed Intake Vital Signs05/15/18 Height 5 ft 4 in 05/15/18 Weight: 181 lb 4 oz 05/15/18 Body Mass Index (BMI) 31.1 05/15/18 Blood Pressure 118/64 Intake Visit Reasons: 34 WEEKS Filterer Required: No Is patient in pain?: No Allergies sertraline [From Zoloft] Allergy (Verified 05/15/18 11:57) Other alcohol Adverse Reaction (Verified 05/15/18 11:57) Other Medications Calcium Carbonate [Calcium] 500 mg PO DAILY 02/01/17 [History Confirmed 05/15/18] ascorbic acid (vitamin C) 500 mg capsule mg PO 10/18/17 [History Confirmed 05/15/18] cholecalciferol (vitamin D3) 2,000 unit capsule 2,000 unit PO QDAY 10/18/17 [History Confirmed 05/15/18] escitalopram 10 mg tablet 10 mg PO QDAY 10/18/17 [History Confirmed 05/15/18] lactobacillus combination no.8 3 billion cell capsule 3,000 mmu cells PO QDAY 10/18/17 [History Confirmed 05/15/18] levothyroxine 125 mcg capsule 125 mcg PO QDAY 10/18/17 [History Confirmed 05/15/18] magnesium oxide 400 mg capsule 400 mg PO QDAY cap 10/18/17 [History Confirmed 05/15/18] multivitamin tablet 1 tab PO QDAY 10/18/17 [History Confirmed 05/15/18] omega-3 fatty acids 1,000 mg capsule 1,000 mg PO QDAY 10/18/17 [History Confirmed 05/15/18] Nasal spray INTRANASAL 12/05/17 [History Confirmed 05/15/18] Nature Made Cranberry .ROUTE 12/05/17 [History Confirmed 05/15/18] guaifenesin 100 mg/5 mL oral liquid 200 mg PO Q4H PRN 04/08/18 [History Confirmed 05/15/18] ondansetron HCl 4 mg tablet 4 mg PO Q6H PRN #60 tab 04/08/18 [Rx Confirmed 05/15/18] Last Menstral Period: 08/15/17 Zika: Zika virus screening: Negative : No PFSH PFSH Medical History Anixety and Depression (Acute) Hypothyroidism (Chronic) Family History Unknown Diabetes Uncle Diabetes Social History Smoking Status: Never smoker alcohol intake: never substance use type: does not use caffeine: Yes what type of physical activity do you participate in: none seatbelt use: always do you feel safe at home: Yes additional social history: [facility] Pregan[facility] History 1 Elective abortions Hx Para 1 Spontaneous abortions Past Pregnancies Del. DatName [place]/WeeksOutcome Route [facility] LgAnesthesDel LocaProviderFOB e ht en ia tn Unknown 2017 Syl40 live birNSVD via th - [facility] l term HPI 34 WEEKS: Details: ELIEL WILEY is a 33 year old who presents for routine OB visit. OB Visit JANKI Calculator Estimated Delivery Date 06/22/18 Based on Ultrasound Date 11/05/17 Current WG 34w 4d Number 1 Expected Delivery Route/Plan Specific Issue/Plans flu vaccine: given tdap vaccine: next visit rhogam: given LARC form signed: declines labor support person: Zacarias pain management: epidural cut cord/dad catch: : yes PP control planned: [] special requests: [] Initial Weight: 179 lb Date Weight BP Urine PrFHR FuHt Pres MoCTX DilationFetal StVisit NoProviderComments E ot v te [place] G Effac lucose ed Visit Notes Visit Date: 05/15/18 No VB, LOF. Doing well ELICEO Covington on 05/15/18 Visit Date: 04/29/18 No VB, LOF. Had urinary discomfort a few days ago. Better now. Also dry cough, no fever. ELICEO Coving[place] on 04/29/18 Visit Date: 04/17/18 no vb lof good fm no regular ctx Shruthi Mccabe MD on 04/17/18 Visit Date: 04/08/18 Nausea/vomiting problematic. No VB, LOF. ELICEO Coving[place] on 04/08/18 Visit Date: 02/25/18 no vb lof good fm Shruthi Mccabe MD on 02/25/18 Visit Date: 01/28/18 Doing well. No VB, LOF. Had anatomy US today-Girl ELICEO Covington on 01/28/18 Visit Date: 12/31/17 no vb cramping Shruthi Mccabe MD on 12/31/17 Visit Date: 12/05/17 no vb lof no regular ctx Shruthi Mccabe MD on 12/05/17 Visit Date: 11/05/17 No visit notes to display ACOG First Trimester First Trimester: Discussed Diagnostics Diagnostics Labs Blood Type O NEGATIVE 04/08/18 Antibody Screen NEGATIVE 04/08/18 Hct 35.9 % (37-47) L 04/08/18 Hgb 11.8 g/dl (12.0-15.0) L 04/08/18 Obstetrics Ultrasound 01/28/18 Rubella IgG Antibody 183.0 IU/mL 12/05/17 RPR NONREACTIVE (NONREACTIVE) 12/05/17 Hep Bs Antigen Negative (Negative) 12/05/17 Glucose 1 Hr 50 gm 160 mg/dL (70-140) H 04/08/18 Details: HIV: Urine Culture: Sequential Screen: NIPT Screen: Results [id number] Office Urine Glucose Negative Last Edit by Cassy Pollard on 05/15/18 12:00 Office Urine Protein Negative Last Edit by Cassy Pollard on 05/15/18 12:00 Assessment AND Plan Problems 1. Supervision of high risk in third trimester O09.93 PRR JANKI 06/22/18 Girl PC Erika Zacarias 2. 34 weeks gestation of Z3A.34 genetic, carrier, and NT screening declined 3. Rh negative status during in third trimester O09.893 rhogam at 28 weeks and PRN 4. Short interval between pregnancies affecting , antepartum O09.899 5. Asymptomatic bacteriuria during in first trimester O99.89; R82.71 macrobid, needs repeat culture 6. Acquired hypothyroidism E03.9 Started levothyroxine 10/18/17 Plan Orders placed: none Discussed OTC meds for constipation and med list given Reviewed of labor precautions, movement/kick counts ACOG trimester education reviewed and updated See problem list details for updated plan of care Gestational age appropriate handout given RTO: 2 weeks Orders Orders: Coding Level of Care Code OB Routine Diagnoses Supervision of high risk in third trimester O09.93 Trimester: third trimester 34 weeks gestation of Z3A.34 Weeks of gestation: 34 weeks Rh negative status during in third trimester O09.893 Trimester: third trimester Short interval between pregnancies affecting , antepartum O09.899 Asymptomatic bacteriuria during in first trimester O99.89; R82.71 Acquired hypothyroidism E03.9 Hypothyroidism type: acquired 05/15/18 1223 <Electronically signed by Mayra FENTON> Date Mayra FENTON Cosigner Signature: Date (if applicable) CC: Observed: 04/29/2018 Status: F Source: REJI CULTURE, URINE 6:29 PM [facility] REPOSITORY Urine Culture Below infection level. ORGANISM 1: Mixed Gram Positive Organisms [place] Count 50,000-80,000 MIX CULTURE Mixed contaminants. Submit a new specimen if indicated. Performed By: #### M100.0650 #### [facility] [place] Aranda, [address] FABRICATION SPECIALIST OFFICE VISIT Observed: 04/29/2018 Status: F Source: REJI REPORT 2:56 PM [facility] REPOSITORY [facility] [address] [place]endo[place] [address] OFFICE VISIT Date of Service: 04/29/18 MR#: [id number] Acct: [id number] Name: ELIEL WILEY Rep #: [id number] : 1985 Provider: HANH Mathur Age/Sex: 33/F [place] [facility] [place] Status: Signed Intake Vital Signs04/29/18 Height 5 ft 4 in 04/29/18 Weight: 185 lb 2 oz 04/29/18 Body Mass Index (BMI) 31.7 04/29/18 Blood Pressure 124/80 H Intake Visit Reasons: 32 WEEKS Filterer Required: No Is patient in pain?: No Allergies sertraline [From Zoloft] Allergy (Verified 04/29/18 13:47) Other alcohol Adverse Reaction (Verified 04/29/18 13:47) Other Medications Calcium Carbonate [Calcium] 500 mg PO DAILY 02/01/17 [History Confirmed 04/29/18] ascorbic acid (vitamin C) 500 mg capsule mg PO 10/18/17 [History Confirmed 04/29/18] cholecalciferol (vitamin D3) 2,000 unit capsule 2,000 unit PO QDAY 10/18/17 [History Confirmed 04/29/18] escitalopram 10 mg tablet 10 mg PO QDAY 10/18/17 [History Confirmed 04/29/18] lactobacillus combination no.8 3 billion cell capsule 3,000 mmu cells PO QDAY 10/18/17 [History Confirmed 04/29/18] levothyroxine 125 mcg capsule 125 mcg PO QDAY 10/18/17 [History Confirmed 04/29/18] magnesium oxide 400 mg capsule 400 mg PO QDAY cap 10/18/17 [History Confirmed 04/29/18] multivitamin tablet 1 tab PO QDAY 10/18/17 [History Confirmed 04/29/18] omega-3 fatty acids 1,000 mg capsule 1,000 mg PO QDAY 10/18/17 [History Confirmed 04/29/18] Nasal spray INTRANASAL 12/05/17 [History Confirmed 04/29/18] Nature Made Cranberry .ROUTE 12/05/17 [History Confirmed 04/29/18] guaifenesin 100 mg/5 mL oral liquid 200 mg PO Q4H PRN 04/08/18 [History Confirmed 04/29/18] ondansetron HCl 4 mg tablet 4 mg PO Q6H PRN #60 tab 04/08/18 [Rx Confirmed 04/29/18] Last Menstral Period: 08/15/17 Zika: Zika virus screening: Negative : No PFSH PFSH Medical History Anixety and Depression (Acute) Hypothyroidism (Chronic) Family History Unknown Diabetes Uncle Diabetes Social History Smoking Status: Never smoker alcohol intake: never substance use type: does not use caffeine: Yes what type of physical activity do you participate in: none seatbelt use: always do you feel safe at home: Yes additional social history: Zacarias [facility] History 1 Elective abortions Hx Para 1 Spontaneous abortions Past Pregnancies Del. DatName GA/WeeksOutcome [facility]An[facility]Del LocaProviderFOB e ht en th ia tn Unknown 2016 Syl40 live birNSVD via th - ful l term HPI 32 WEEKS: Details: ELIEL WILEY is a 33 year old who presents for routine OB visit. OB Visit JANKI Calculator Estimated Delivery Date 06/22/18 Based on Ultrasound Date 11/05/17 Current WG 32w 2d Number 1 Expected Delivery Route/Plan Specific Issue/Plans flu vaccine: given tdap vaccine: next visit rhogam: given LARC form signed: [] labor support person: Zacarias pain management: epidural cut cord/dad catch: : yes PP control planned: [] special requests: [] Initial Weight: 179 lb Date Weight BP Urine PrFHR FuHt Pres MoCTX DilationFetal StVisit NoProviderComments E ot v te [place] G Effac lucose ed Visit Notes Visit Date: 04/29/18 No VB, LOF. Had urinary discomfort a few days ago. Better now. Also dry cough, no fever. ELICEO Covington on 04/29/18 Visit Date: 04/17/18 no vb lof good fm no regular ctx Shruthi Mccabe MD on 04/17/18 Visit Date: 04/08/18 Nausea/vomiting problematic. No VB, LOF. ELICEO Covington on 04/08/18 Visit Date: 02/25/18 no vb lof good fm Shruthi Mccabe MD on 02/25/18 Visit Date: 01/28/18 Doing well. No VB, LOF. Had anatomy US today-Girl Mayra Mathur, CLOTH MENDER-C on 01/28/18 Visit Date: 12/31/17 no vb cramping Shruthi Mccabe MD on 12/31/17 Visit Date: 12/05/17 no vb lof no regular ctx Shruthi Mccabe MD on 12/05/17 Visit Date: 11/05/17 No visit notes to display ACOG First Trimester First Trimester: Discussed Diagnostics Diagnostics Labs Blood Type O NEGATIVE 04/08/18 Antibody Screen NEGATIVE 04/08/18 Hct 35.9 % (37-47) L 04/08/18 Hgb 11.8 g/dl (12.0-15.0) L 04/08/18 Obstetrics Ultrasound 01/28/18 Rubella IgG Antibody 183.0 IU/mL 12/05/17 RPR NONREACTIVE (NONREACTIVE) 12/05/17 Hep Bs Antigen Negative (Negative) 12/05/17 Chlam trachomat DNA PCR Negative (Negative) 11/05/17 N.gonorrhoeae DNA (PCR) Negative (Negative) 11/05/17 Glucose 1 Hr 50 gm 160 mg/dL (70-140) H 04/08/18 Details: HIV: Urine Culture: Sequential Screen: NIPT Screen: Results BMSUA Office Urine Color Yellow Last Edit by Cassy Pollard on 04/29/18 13:56 Office Urine Clarity Clear Last Edit by Cassy Pollard on 04/29/18 13:56 Assessment AND Plan Problems 1. Supervision of high risk in third trimester O09.93 PRR JANKI 06/22/18 Girl PC Erika Zacarias 2. Short interval between pregnancies affecting , antepartum O09.899 3. Rh negative status during in third trimester O09.893 rhogam at 28 weeks and PRN 4. 32 weeks gestation of Z3A.32 genetic, carrier, and NT screening declined 5. Abnormal glucose affecting O99.810 3 hr GTT ordered 6. Asymptomatic bacteriuria during in first trimester O99.89; R82.71 macrobid, needs repeat culture 7. Acquired hypothyroidism E03.9 Started levothyroxine 5/3/18 Plan Orders placed: urine culture med list of GERD and cough Reviewed of labor precautions, movement/kick counts ACOG trimester education reviewed and updated See problem list details for updated plan of care Gestational age appropriate handout given RTO: 2 weeks Orders Orders: Coding Level of Care Code OB Routine Diagnoses Supervision of high risk in third trimester O09.93 Trimester: third trimester Short interval between pregnancies affecting , antepartum O09.899 Rh negative status during in third trimester O09.893 Trimester: third trimester 32 weeks gestation of Z3A.32 Weeks of gestation: 32 weeks Abnormal glucose affecting O99.810 Asymptomatic bacteriuria during in first trimester O99.89; R82.71 Acquired hypothyroidism E03.9 Hypothyroidism type: acquired 04/29/18 1456 <Electronically signed by Mayra FENTON> Date Mayra FENTON Cosigner Signature: Date (if applicable) CC: FABRICATION SPECIALIST OFFICE VISIT Observed: 04/17/2018 Status: F Source: REJI REPORT 11:52 AM [facility] [address] [place] [address] OFFICE VISIT Date of Service: 04/17/18 MR#: [id number] Acct: [id number] Name: ELIEL WILEY Rep #: [id number] : 1985 Provider: Shruthi Mccabe MD Age/Sex: 33/F Location[place] [facility] [place] Status: Signed Intake Vital Signs04/17/18 Height 5 ft 4 in 04/17/18 Weight: 184 lb 04/17/18 Body Mass Index (BMI) 31.6 04/17/18 Blood Pressure 120/64 Intake Visit Reasons: 30 weeks Chief Complaint: est ob Filterer Required: No Is patient in pain?: No Allergies sertraline [From Zoloft] Allergy (Verified 04/17/18 11:29) Other alcohol Adverse Reaction (Verified 04/17/18 11:29) Other Medications Calcium Carbonate [Calcium] 500 mg PO DAILY 02/01/17 [History Confirmed 04/17/18] ascorbic acid (vitamin C) 500 mg capsule mg PO 10/18/17 [History Confirmed 04/17/18] cholecalciferol (vitamin D3) 2,000 unit capsule 2,000 unit PO QDAY 10/18/17 [History Confirmed 04/17/18] escitalopram 10 mg tablet 10 mg PO QDAY 10/18/17 [History Confirmed 04/17/18] lactobacillus combination no.8 3 billion cell capsule 3,000 mmu cells PO QDAY 10/18/17 [History Confirmed 04/17/18] levothyroxine 125 mcg capsule 125 mcg PO QDAY 10/18/17 [History Confirmed 04/17/18] magnesium oxide 400 mg capsule 400 mg PO QDAY cap 10/18/17 [History Confirmed 04/17/18] multivitamin tablet 1 tab PO QDAY 10/18/17 [History Confirmed 04/17/18] omega-3 fatty acids 1,000 mg capsule 1,000 mg PO QDAY 10/18/17 [History Confirmed 04/17/18] Nasal spray INTRANASAL 12/05/17 [History Confirmed 04/17/18] Nature Made Cranberry .ROUTE 12/05/17 [History Confirmed 04/17/18] guaifenesin 100 mg/5 mL oral liquid 200 mg PO Q4H PRN 04/08/18 [History Confirmed 04/17/18] ondansetron HCl 4 mg tablet 4 mg PO Q6H PRN #60 tab 04/08/18 [Rx Confirmed 04/17/18] Last Menstral Period: 08/15/17 Zika: Zika virus screening: Negative : No PFSH PFSH Medical History Anixety and Depression (Acute) Hypothyroidism (Chronic) Family History Unknown Diabetes Uncle Diabetes Social History Smoking Status: Never smoker alcohol intake: never substance use type: does not use caffeine: Yes what type of physical activity do you participate in: none seatbelt use: always do you feel safe at home: Yes additional social history: [facility] History 1 Elective abortions Hx Para 1 Spontaneous abortions Past Pregnancies Del. DatName GA/WeeksOutcome Route [facility] Daly Caball[facility] LgAnesthesDel LocaProviderFOB e ht en th ia tn Unknown 2017 Syl40 live birNSVD via th - ful l term HPI 30 weeks: Details: ELIEL WILEY is a 33 year old who presents for routine OB visit. OB Visit JANKI Calculator Estimated Delivery Date 06/22/18 Based on Ultrasound Date 11/05/17 Current WG 30w 4d Number 1 Expected Delivery Route/Plan Specific Issue/Plans flu vaccine: given tdap vaccine: next visit rhogam: given LARC form signed: [] labor support person: Zacarias pain management: epidural cut cord/dad catch: : yes PP control planned: [] special requests: [] Initial Weight: 179 lb Date Weight BP Urine PrFHR FuHt Pres MoCTX DilationFetal StVisit NoProviderComments E ot v te [place] G Effac lucose ed Visit Notes Visit Date: 04/17/18 no vb lof good fm no regular ctx Shruthi Mccabe MD on 04/17/18 Visit Date: 04/08/18 Nausea/vomiting problematic. No VB, LOF. ELICEO Covington on 04/08/18 Visit Date: 02/25/18 no vb lof good fm Shruthi Mccabe MD on 02/25/18 Visit Date: 01/28/18 Doing well. No VB, LOF. Had anatomy US today-Girl ELICEO Coving[place] on 01/28/18 Visit Date: 12/31/17 no vb cramping Shruthi Mccabe MD on 12/31/17 Visit Date: 12/05/17 no vb lof no regular ctx Shruthi Mccabe MD on 12/05/17 Visit Date: 11/05/17 No visit notes to display ACOG First Trimester First Trimester: Discussed Diagnostics Diagnostics Labs Blood Type O NEGATIVE 04/08/18 Antibody Screen NEGATIVE 04/08/18 Hct 35.9 % (37-47) L 04/08/18 Hgb 11.8 g/dl (12.0-15.0) L 04/08/18 Obstetrics Ultrasound 01/28/18 Rubella IgG Antibody 183.0 IU/mL 12/05/17 RPR NONREACTIVE (NONREACTIVE) 12/05/17 Hep Bs Antigen Negative (Negative) 12/05/17 Chlam trachomat DNA PCR Negative (Negative) 11/05/17 N.gonorrhoeae DNA (PCR) Negative (Negative) 11/05/17 Glucose 1 Hr 50 gm 160 mg/dL (70-140) H 04/08/18 Details: HIV: Urine Culture: Sequential Screen: NIPT Screen: Results [email or web address] Office Urine Glucose Negative Last Edit by Kiesha Melchor on 04/17/18 11:35 Office Urine Protein Negative Last Edit by Kiesha Melchor on 04/17/18 11:35 Assessment AND Plan Problems 1. Rh negative status during in third trimester O09.893; Z67.91 rhogam at 28 weeks and PRN 2. Short interval between pregnancies affecting , antepartum O09.899 3. Asymptomatic bacteriuria during in first trimester O99.89; R82.71 macrobid, needs repeat culture 4. 30 weeks gestation of Z3A.30 genetic, carrier, and NT screening declined 5. Acquired hypothyroidism E03.9 Started levothyroxine 10/18/17 6. Supervision of high risk in third trimester O09.93 PRR JANKI 06/22/18 Girl PC Erika Zacarias Plan movement and labor precautions reviewed. ACOG trimester education reviewed and updated. see problem list details for updated plan management information and see below for orders placed at this visit. GA appropriate handout given. Orders Orders: Coding Level of Care Code OB Routine Diagnoses Rh negative status during in third trimester O09.893; Z67.91 Trimester: third trimester Short interval between pregnancies affecting , antepartum O09.899 Asymptomatic bacteriuria during in first trimester O99.89; R82.71 30 weeks gestation of Z3A.30 Weeks of gestation: 30 weeks Acquired hypothyroidism E03.9 Hypothyroidism type: acquired Supervision of high risk in third trimester O09.93 Trimester: third trimester 04/17/18 1152 <Electronically signed by Shruthi Mccabe MD> Date Shruthi Chaparro Signature: Date (if applicable) CC: GESTATIONAL GTT 3HR Collected: 04/15/2018 Status: F Source: REJI MartinezG 10:14 AM [facility] REPOSITORY Order Comment: Is Patient Fasting? Y TYPE CODE TESTS RESULT OUT OF RANGE REFERENCE UNITS LAB L501.0650 <105 mg/dL Normal GLU 82 GTT-FASTING Result Comment: GLUCOSE TOLERANCE TEST FOR Reference Interval GESTATIONAL DIABETES Fasting <105 mg/dL 1 hour <190 mg/dl 2 hour <165 mg/dl 3 hour <145 mg/dl LAB L501.0660 <190 mg/dL Normal GLU GTT- 1HR 181 LAB L501.0670 <165 mg/dL Normal GLU GTT- 2HR 130 LAB L501.0680 <145 L Normal GLU GTT- 3HR 97 Performed By: #### L500.4710 #### [facility] [address] [place], [address] FABRICATION SPECIALIST OFFICE VISIT Observed: 04/08/2018 Status: F Source: REJI REPORT 3:41 PM [facility] REPOSITORY [facility] [address] [place] [address] OFFICE VISIT Date of Service: 04/08/18 MR#: [id number] Acct: [id number] Name: ELIEL WILEY Rep #: [id number] : 1985 Provider: HANH Mathur Age/Sex: 33/F [place] [facility] [place] Status: Signed Intake Vital Signs04/08/18 Height 5 ft 4 in 04/08/18 Weight: 185 lb 04/08/18 Body Mass Index (BMI) 31.7 04/08/18 Blood Pressure 112/68 Intake Visit Reasons: est ob NEEDS GLUCOLA Chief Complaint: est ob, glucola, rhogam Filterer Required: No Is patient in pain?: No Allergies sertraline [From Zoloft] Allergy (Verified 04/08/18 11:32) Other alcohol Adverse Reaction (Verified 04/08/18 11:32) Other Medications Calcium Carbonate [Calcium] 500 mg PO DAILY 02/01/17 [History Confirmed 02/25/18] ascorbic acid (vitamin C) 500 mg capsule mg PO 10/18/17 [History Confirmed 02/25/18] cholecalciferol (vitamin D3) 2,000 unit capsule 2,000 unit PO QDAY 10/18/17 [History Confirmed 02/25/18] escitalopram 10 mg tablet 10 mg PO QDAY 10/18/17 [History Confirmed 02/25/18] lactobacillus combination no.8 3 billion cell capsule 3,000 mmu cells PO QDAY 10/18/17 [History Confirmed 02/25/18] levothyroxine 125 mcg capsule 125 mcg PO QDAY 10/18/17 [History Confirmed 02/25/18] magnesium oxide 400 mg capsule 400 mg PO QDAY cap 10/18/17 [History Confirmed 02/25/18] multivitamin tablet 1 tab PO QDAY 10/18/17 [History Confirmed 02/25/18] omega-3 fatty acids 1,000 mg capsule 1,000 mg PO QDAY 10/18/17 [History Confirmed 02/25/18] Nasal spray INTRANASAL 12/05/17 [History Confirmed 02/25/18] Nature Made Cranberry .ROUTE 12/05/17 [History Confirmed 02/25/18] guaifenesin 100 mg/5 mL oral liquid 200 mg PO Q4H PRN 04/08/18 [History Confirmed 04/08/18] ondansetron HCl 4 mg tablet 4 mg PO Q6H PRN #60 tab 04/08/18 [Rx Confirmed 04/08/18] Last Menstral Period: 08/15/17 Zika: Zika virus screening: Negative : No PFSH PFSH Medical History Anixety and Depression (Acute) Hypothyroidism (Chronic) Family History Unknown Diabetes Uncle Diabetes Social History Smoking Status: Never smoker alcohol intake: never substance use type: does not use caffeine: Yes what type of physical activity do you participate in: none seatbelt use: always do you feel safe at home: Yes additional social history: Zacarias [facility] History 1 Elective abortions Hx Para 1 Spontaneous abortions Past Pregnancies Del. DatName GA/WeeksOutcome Route [facility] Daly Caballero LgAnesthesDel LocaProviderFOB e ht en th ia tn Unknown 2017 Syl40 live birNSVD via th - ful l term HPI est ob NEEDS GLUCOLA: Details: ELIEL WILEY is a 33 year old who presents for routine OB visit. OB Visit JANKI Calculator Estimated Delivery Date 06/22/18 Based on Ultrasound Date 11/05/17 Current WG 29w 2d Number 1 Expected Delivery Route/Plan Specific Issue/Plans flu vaccine: given tdap vaccine: next visit rhogam: given LARC form signed: [] labor support person: Zacarias pain management: epidural cut cord/dad catch: : yes PP control planned: [] special requests: [] Initial Weight: 179 lb Date Weight BP Urine PrFHR FuHt Pres MoCTX DilationFetal StVisit NoProviderComments E ot v te GA G Effac lucose ed Visit Notes Visit Date: 04/08/18 Nausea/vomiting problematic. No VB, LOF. ELICEO Covington on 04/08/18 Visit Date: 02/25/18 no vb lof good fm Shruthi Mccabe MD on 02/25/18 Visit Date: 01/28/18 Doing well. No VB, LOF. Had anatomy US today-Girl ELICEO Covington on 01/28/18 Visit Date: 12/31/17 no vb cramping Shruthi Mccabe MD on 12/31/17 Visit Date: 12/05/17 no vb lof no regular ctx Shruthi Mccabe MD on 12/05/17 Visit Date: 11/05/17 No visit notes to display ACOG First Trimester First Trimester: Discussed Diagnostics Diagnostics Labs Blood Type O NEGATIVE 04/08/18 Antibody Screen NEGATIVE 04/08/18 Hct 35.9 % (37-47) L 04/08/18 Hgb 11.8 g/dl (12.0-15.0) L 04/08/18 Obstetrics Ultrasound 01/28/18 Rubella IgG Antibody 183.0 IU/mL 12/05/17 RPR NONREACTIVE (NONREACTIVE) 12/05/17 Hep Bs Antigen Negative (Negative) 12/05/17 Chlam trachomat DNA PCR Negative (Negative) 11/05/17 N.gonorrhoeae DNA (PCR) Negative (Negative) 11/05/17 Glucose 1 Hr 50 gm 160 mg/dL (70-140) H 04/08/18 Details: HIV: Urine Culture: Sequential Screen: NIPT Screen: Office Meds Flucelvax Quad [id number] (PF) Performing Provider: ELICEO Covington Administered by: Trudy Chen on 04/08/18 12:14 Dose Route Admin Location Lot Number Expiration Date [facility] Line Technician 60 mcg IM left deltoid [id number] 12/15/18 [id number] SE[employer] RhoGAM Ultra-Filtered PLUS Performing Provider: ELICEO Covington Administered by: Trudy Chen on 04/08/18 12:14 Dose Route Admin Location Lot Number Expiration Date [facility] Line Technician 1,500 unit IM left gluteal [id number] 09/22/19 [id number] [employer] Results [id number] Office Urine Glucose Negative Last Edit by Kiesha Melchor on 04/08/18 13:32 Office Urine Protein Negative Last Edit by Kiesha Melchor on 04/08/18 13:32 Assessment AND Plan Problems 1. Supervision of high risk in second trimester O09.92 PRR JANKI 06/22/18 Girl PC Erika Zacarias 2. 29 weeks gestation of Z3A.29 genetic, carrier, and NT screening declined 3. Rh negative status during in second trimester O09.892 rhogam at 28 weeks and PRN 4. Short interval between pregnancies affecting , antepartum O09.899 5. Asymptomatic bacteriuria during in first trimester O99.89; R82.71 macrobid, needs repeat culture 6. Acquired hypothyroidism E03.9 Started levothyroxine 10/18/17 Plan Orders placed: 28 wk labs, rhogam, flu. Will get tdap next time Reviewed of labor precautions, movement/kick counts ACOG trimester education reviewed and updated See problem list details for updated plan of care Gestational age appropriate handout given RTO: 2 weeks Orders Orders: Medications New: Discontinued: RhoGAM Ultra-Filtered PLUS (rho(D) immune globulin) 1,500 units IM ONCE #1 0RF NS O09.90 Discontinued Reason: Office Medication has been Do cumented as given Coding Level of Care Code OB Routine Diagnoses Supervision of high risk in second trimester O09.92 Trimester: second trimester 29 weeks gestation of Z3A.29 Weeks of gestation: 29 weeks Rh negative status during in second trimester O09.892 Trimester: second trimester Short interval between pregnancies affecting , antepartum O09.899 Asymptomatic bacteriuria during in first trimester O99.89; R82.71 Acquired hypothyroidism E03.9 Hypothyroidism type: acquired 04/08/18 1541 <Electronically signed by Mayra FENTON> Date Mayra FENTON Cosigner Signature: Date (if applicable) CC: GLUCOSE CHALLENGE GEST Collected: 04/08/2018 Status: F Source: [place] 1H 50G 12:32 PM [facility] REPOSITORY TYPE CODE TESTS RESULT OUT OF RANGE REFERENCE UNITS LAB L501.0250 70-140 mg/dL High GLU GEST 160 50g 1H Performed By: #### L501.0250, L100.0100, B101.7450 #### [facility] [address] [place], [address] CBC W/DIFF, AUTOMATED Collected: 04/08/2018 Status: F Source: [place] 12:32 PM [facility] REPOSITORY TYPE CODE TESTS RESULT OUT OF RANGE REFERENCE UNITS LAB L100.1000 4.4-11.0 K/mm3 Normal WBC 8.7 LAB L100.1200 4.2-5.4 M/mm3 Low RBC 4.07 LAB L100.1300 12.0-15.0 g/dl Low HGB 11.8 LAB L100.1400 37-47 % Low HCT 35.9 LAB L100.1500 81-99 fL Normal MCV 88.2 LAB L100.1600 27.0-32.0 pg Normal MCH 29.0 LAB L100.1700 32-36 g/gl Normal MCHC 32.9 LAB L100.1810 11.6-14.6 % Normal RDW CV 14.3 LAB L100.1820 35.1-43.9 fl High RDW SD 46.5 LAB L100.1900 150-450 K/mm3 Normal PLT 234 LAB L100.2000 6.2-12.0 fl Normal MPV 9.3 LAB L100.2100 47-70 % High NEUT% 73.4 LAB L100.2200 19-41 % Low LY% 18.5 LAB L100.2300 0-10 % Normal MONO% 6.5 LAB L100.2400 0-5 % Normal EO% 1.3 LAB L100.2500 0-1 % Normal BASO% 0.0 LAB L100.2550 0.0-0.9 % Normal IM GRAN % 0.300 Result Comment: IG% - Immature Granulocytes (promyelocytes, myelocytes and metamyelocytes) > 1% indicates that a LEFT SHIFT is Present. LAB L100.2620 2.0-7.7 X10 3/uL Normal Absolute Neut 6.4 LAB L100.2720 0.83-4.51 X10 3/ul Normal Absolute Lymph 1.60 Performed By: #### L501.0250, L100.0100, B101.7450 #### [facility] [address] [facility] [place], [place], [id number] TYPE AND SCREEN Collected: 04/08/2018 Status: F Source: [place] 12:32 PM [facility] REPOSITORY Order Comment: Reason for Type AND Screen/Red Cells: TYPE CODE TESTS RESULT OUT OF RANGE REFERENCE UNITS LAB B10.0800 O Normal BLOOD TYPE GEL NEGATIVE LAB B100.4000 Normal Antibody NEGATIVE Screen Performed By: #### L501.0250, L100.0100, B101.7450 #### [facility] [address] [place], [place], [address] FABRICATION SPECIALIST OFFICE VISIT Observed: 02/25/2018 Status: F Source: REJI REPORT 1:54 PM [facility] REPOSITORY [facility] [place] [address] [place] [address] OFFICE VISIT Date of Service: 02/25/18 MR#: [id number] Acct: [id number] Name: ELIEL WILEY Rep #: [id number] : 1985 Provider: Shruthi Mccabe MD Age/Sex: 33/F [place] [facility] [place] Status: Signed Intake Vital Signs02/25/18 Height 5 ft 4 in 02/25/18 Weight: 183 lb 02/25/18 Body Mass Index (BMI) 31.4 02/25/18 Blood Pressure 102/60 Intake Visit Reasons: est ob 23 weeks Chief Complaint: est ob Filterer Required: No Is patient in pain?: No Allergies sertraline [From Zoloft] Allergy (Verified 02/25/18 13:33) Other alcohol Adverse Reaction (Verified 02/25/18 13:33) Other Medications Calcium Carbonate [Calcium] 500 mg PO DAILY 02/01/17 [History Confirmed 02/25/18] ascorbic acid (vitamin C) 500 mg capsule mg PO 10/18/17 [History Confirmed 02/25/18] cholecalciferol (vitamin D3) 2,000 unit capsule 2,000 unit PO QDAY 10/18/17 [History Confirmed 02/25/18] escitalopram 10 mg tablet 10 mg PO QDAY 10/18/17 [History Confirmed 02/25/18] lactobacillus combination no.8 3 billion cell capsule 3,000 mmu cells PO QDAY 10/18/17 [History Confirmed 02/25/18] levothyroxine 125 mcg capsule 125 mcg PO QDAY 10/18/17 [History Confirmed 02/25/18] magnesium oxide 400 mg capsule 400 mg PO QDAY cap 10/18/17 [History Confirmed 02/25/18] multivitamin tablet 1 tab PO QDAY 10/18/17 [History Confirmed 02/25/18] omega-3 fatty acids 1,000 mg capsule 1,000 mg PO QDAY 10/18/17 [History Confirmed 02/25/18] Nasal spray INTRANASAL 12/05/17 [History Confirmed 02/25/18] Nature Made Cranberry .ROUTE 12/05/17 [History Confirmed 02/25/18] Last Menstral Period: 08/15/17 Zika: Zika virus screening: Negative : No PFSH PFSH Medical History Anixety and Depression (Acute) Hypothyroidism (Chronic) Family History Unknown Diabetes Uncle Diabetes Social History Smoking Status: Never smoker alcohol intake: never substance use type: does not use caffeine: Yes what type of physical activity do you participate in: none seatbelt use: always do you feel safe at home: Yes additional social history: [facility] Pregan[facility] History 1 Elective abortions Hx Para 1 Spontaneous abortions Past Pregnancies Del. DatName GA/WeeksOutcome Route [facility] Daly Caballero LgAnesthesDel LocaProviderFOB e ht en ia tn Unknown 2017 Syl40 live birNSVD via th - ful l term HPI est ob 23 weeks: Details: ELIEL WILEY is a 33 year old who presents for routine OB visit. OB Visit JANKI Calculator Estimated Delivery Date 06/22/18 Based on Ultrasound Date 11/05/17 Current WG 23w 2d Number 1 Expected Delivery Route/Plan Specific Issue/Plans flu vaccine: [] minichart given: [] tdap vaccine: [] rhogam: [] LARC form signed: [] labor support person: [] pain management: [] cut cord/dad catch: [] : [] PP control planned: [] special requests: [] Initial Weight: 179 lb Date Weight BP Urine PFHR FuHt Pres MCTX DilatioFetal SVisit NProvideComment rot ov n t ote r s EGA Ef Gluco faced se 11/05/1178 lb 128/64 8 (+0 oz) 7w 2d Visit Notes Visit Date: 02/25/18 no vb lof good fm Shruthi Mccabe MD on 02/25/18 Visit Date: 01/28/18 Doing well. No VB, LOF. Had anatomy US today-Girl Mayra Mathur, CLOTH MENDER-C on 01/28/18 Visit Date: 12/31/17 no vb cramping Shruthi Mccabe MD on 12/31/17 Visit Date: 12/05/17 no vb lof no regular ctx Shruthi Mccabe MD on 12/05/17 Visit Date: 11/05/17 No visit notes to display ACOG First Trimester First Trimester: Discussed Diagnostics Diagnostics Labs Blood Type O NEGATIVE 12/05/17 Antibody Screen NEGATIVE 12/05/17 Hct 38.0 % (37-47) 12/05/17 Hgb 12.4 g/dl (12.0-15.0) 12/05/17 Obstetrics Ultrasound 01/28/18 Rubella IgG Antibody 183.0 IU/mL 12/05/17 RPR NONREACTIVE (NONREACTIVE) 12/05/17 Hep Bs Antigen Negative (Negative) 12/05/17 Chlam trachomat DNA PCR Negative (Negative) 11/05/17 N.gonorrhoeae DNA (PCR) Negative (Negative) 11/05/17 Rhogam given: No 04/08/17 Miscellaneous Test 05/18/17 Details: HIV: Urine Culture: Sequential Screen: NIPT Screen: Assessment AND Plan Problems 1. Rh negative status during in second trimester O09.892 rhogam at 28 weeks and PRN 2. Short interval between pregnancies affecting , antepartum O09.899 3. Asymptomatic bacteriuria during in first trimester O99.89; R82.71 macrobid, needs repeat culture 4. Acquired hypothyroidism E03.9 Started levothyroxine 10/18/17 5. Supervision of high risk in second trimester O09.92 PRR JANKI 06/22/18 Girl PC Erika Miles 6. 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, carrier, and NT screening declined Orders Orders: Coding Level of Care Code OB Routine Diagnoses Rh negative status during in second trimester O09.892 Trimester: second trimester Short interval between pregnancies affecting , antepartum O09.899 Asymptomatic bacteriuria during in first trimester O99.89; R82.71 Acquired hypothyroidism E03.9 Hypothyroidism type: acquired Supervision of high risk in second trimester O09.92 Trimester: second trimester 23 weeks gestation of Z3A.23 Weeks of gestation: 23 weeks 02/25/18 1354 <Electronically signed by Shruthi Mccabe MD> Date Shruthi Mccabe MD [facility] Signature: Date (if applicable) CC: Observed: 02/25/2018 Status: F Source: [place] CULTURE, URINE 12:00 AM [facility] REPOSITORY Urine Culture ORGANISM 1: Mixed Gram Positive Organisms Belton Count 50,000-80,000 MIX CULTURE Mixed contaminants. Submit a new specimen if indicated. Performed By: #### M100.0650 #### [facility] [address] [place], [address] FABRICATION SPECIALIST OFFICE VISIT Observed: 01/31/2018 Status: F Source: [place] REPORT 2:13 AM [facility] REPOSITORY [facility] [address] [place] [address] OFFICE VISIT Date of Service: 01/28/18 MR#: [id number] Acct: [id number] Name: ELIEL WILEY Rep #: [id number] : 1985 Provider: Shruthi Mccabe MD Age/Sex: 32/F Location[place] [facility] [place] Status: Signed Intake Vital Signs01/28/18 Height 5 ft 4 in 01/28/18 Weight: 182 lb 2 oz 01/28/18 Body Mass Index (BMI) 31.2 01/28/18 Blood Pressure 120/76 Intake Visit Reasons: est ob 19 weeks Chief Complaint: est ob Filterer Required: No Is patient in pain?: No Allergies sertraline [From Zoloft] Allergy (Verified 01/28/18 15:29) Other alcohol Adverse Reaction (Verified 01/28/18 15:29) Other Medications Calcium Carbonate [Calcium] 500 mg PO DAILY 02/01/17 [History Confirmed 01/28/18] ascorbic acid (vitamin C) 500 mg capsule mg PO 10/18/17 [History Confirmed 01/28/18] cholecalciferol (vitamin D3) 2,000 unit capsule 2,000 unit PO QDAY 10/18/17 [History Confirmed 01/28/18] escitalopram 10 mg tablet 10 mg PO QDAY 10/18/17 [History Confirmed 01/28/18] lactobacillus combination no.8 3 billion cell capsule 3,000 mmu cells PO QDAY 10/18/17 [History Confirmed 01/28/18] levothyroxine 125 mcg capsule 125 mcg PO QDAY 10/18/17 [History Confirmed 01/28/18] magnesium oxide 400 mg capsule 400 mg PO QDAY cap 10/18/17 [History Confirmed 01/28/18] multivitamin tablet 1 tab PO QDAY 10/18/17 [History Confirmed 01/28/18] omega-3 fatty acids 1,000 mg capsule 1,000 mg PO QDAY 10/18/17 [History Confirmed 01/28/18] Nasal spray INTRANASAL 12/05/17 [History Confirmed 01/28/18] Nature Made Cranberry .ROUTE 12/05/17 [History Confirmed 01/28/18] Last Menstral Period: 08/15/17 Zika: Zika virus screening: Negative : No PFSH PFSH Medical History Anixety and Depression (Acute) Hypothyroidism (Chronic) Family History Unknown Diabetes Uncle Diabetes Social History Smoking Status: Never smoker alcohol intake: never substance use type: does not use caffeine: Yes what type of physical activity do you participate in: none seatbelt use: always do you feel safe at home: Yes additional social history: [facility] Pregancy History 1 Elective abortions Hx Para 1 Spontaneous abortions Past Pregnancies Del. DatName GA/WeeksOutcome Route [facility] Daly Caballero LgAnesthesDel LocaProviderFOB e ht en th ia tn Unknown 2017 Syl40 live birNSVD via th - ful l term HPI est ob 19 weeks: Details: ELIEL WILEY is a 32 year old who presents for routine OB visit. OB Visit JANKI Calculator Estimated Delivery Date 06/22/18 Based on Ultrasound Date 11/05/17 Current WG 19w 5d Number 1 Expected Delivery Route/Plan Specific Issue/Plans flu vaccine: [] minichart given: [] tdap vaccine: [] rhogam: [] LARC form signed: [] labor support person: [] pain management: [] cut cord/dad catch: [] : [] PP control planned: [] special requests: [] Initial Weight: 179 lb Date Weight BP Urine PrFHR FuHt Pres MoCTX DilationFetal StVisit NoProviderComments E ot v te GA G Effac lucose ed Visit Notes Visit Date: 01/28/18 Doing well. No VB, LOF. Had anatomy US today-Girl Mayra Colestings, CLOTH MENDER-C on 01/28/18 Visit Date: 12/31/17 no vb cramping Shruthi Mccabe MD on 12/31/17 Visit Date: 12/05/17 no vb lof no regular ctx Shruthi Mccabe MD on 12/05/17 Visit Date: 11/05/17 No visit notes to display ACOG First Trimester First Trimester: Discussed Diagnostics Diagnostics Labs Blood Type O NEGATIVE 12/05/17 Antibody Screen NEGATIVE 12/05/17 Hct 38.0 % (37-47) 12/05/17 Hgb 12.4 g/dl (12.0-15.0) 12/05/17 Obstetrics Ultrasound 01/28/18 Rubella IgG Antibody 183.0 IU/mL 12/05/17 RPR NONREACTIVE (NONREACTIVE) 12/05/17 Hep Bs Antigen Negative (Negative) 12/05/17 Chlam trachomat DNA PCR Negative (Negative) 11/05/17 N.gonorrhoeae DNA (PCR) Negative (Negative) 11/05/17 Rhogam given: No 04/08/17 Miscellaneous Test 05/18/17 Details: HIV: Urine Culture: Sequential Screen: NIPT Screen: Results [id number] Office Urine Glucose Negative Last Edit by Kiesha Melchor on 01/28/18 15:30 Office Urine Protein Negative Last Edit by Kiesha Melchor on 01/28/18 15:30 Assessment AND Plan Problems 1. Supervision of high risk in second trimester O09.92 PRR JANKI 06/22/18 Girl PC Erika Zacarias 2. Short interval between pregnancies affecting , antepartum O09.899 3. Rh negative status during in second trimester O09.892 rhogam at 28 weeks and PRN 4. Asymptomatic bacteriuria during in first trimester O99.89; R82.71 macrobid, needs repeat culture 5. Acquired hypothyroidism E03.9 Started levothyroxine 10/18/17 6. 19 weeks gestation of Z3A.19 Plan - ELICEO [place] Orders placed: none Reviewed of labor precautions, movement/kick counts ACOG trimester education reviewed and updated See problem list details for updated plan of care Gestational age appropriate handout given RTO: 4 weeks Orders Orders: Coding Level of Care Code OB Routine Diagnoses Supervision of high risk in second trimester O09.92 Trimester: second trimester Short interval between pregnancies affecting , antepartum O09.899 Rh negative status during in second trimester O09.892 Trimester: second trimester Asymptomatic bacteriuria during in first trimester O99.89; R82.71 Acquired hypothyroidism E03.9 Hypothyroidism type: acquired 19 weeks gestation of Z3A.19 01/31/18 0213 <Electronically signed by Shruthi Mccabe MD> Date Shruthi Mccabe MD 01/28/18 1555<Electronically signed by Mayra FENTON> Cosigner Signature: Date (if applicable) Mayra Mathur CC: OB ANATOMY SCAN Observed: 01/28/2018 Status: F Source: [place] 1:53 PM [facility] REPOSITORY [facility] [address] [place] [address] OB Anatomy Scan MR#: [id number] Acct: [id number] Name: ELIEL WILEY Rep #: [id number] : 1985 F 32 From: Kevin Olivarez MD PCP: Landon Bourgeois MD Status: REG CLI Study: OB Anatomy Scan Date of Exam: 01/28/18 Exam# [id number] Ordering Dr: Shruthi Mccabe MD STUDY: SECOND AND THIRD TRIMESTER OBSTETRICAL ULTRASOUND REASON FOR EXAM: Female, 32 years old. Complete 2nd trimester OB ultrasound with anatomy survey and biometrics. LMP: 09/17/2017. JANKI (LMP) 06/24/2018, GA (LMP) 19 week 0 day. TECHNIQUE: Transabdominal. PRIOR ULTRASOUND: None. FINDINGS: Single live intrauterine gestation in cephalic presentation. Cardiac rate 152 bpm. Placenta grade 0, posterior, not low-lying. Cervical length 3.97 cm, closed. Amniotic fluid quantity is normal with diffuse cortical pocket 6.4 x 2.5 cm. Survey of the adnexa reveals no acute abnormality. BIOMETRY: Measurement centimeters. BPD: 4.48: 19 weeks, 4 days HC: 16.98: 19 weeks, 5 days AC: 14.11: 19 weeks, 4 days FL: 3.05: 19 weeks, 4 days CI: 79% FL/BPD: 68% FL/AC: 22% HC/AC: 1.2 age by current US: 19 weeks, 5 days. JANKI by current US: 06/19/2018. Estimated weight: 295 grams, +/- 43 grams, 74 %. ANATOMY: The anatomic survey is satisfactory and complete. Gender: Female Cranium: Normal lateral ventricles. Normal choroid plexus. Normal cerebellum. Normal cisterna magna. Normal face, nose and lips. Chest: Normal 4-chamber heart. Abdomen/Pelvis: Normal diaphragm. Normal stomach. Normal abdominal wall. Normal cord insertion. Normal 3 vessel cord. Normal kidneys. Normal bladder. Spine: Normal cervical spine. Normal thoracic spine. Normal lumbar spine. Normal sacrum. Extremities: Normal bilateral upper extremities. Normal bilateral lower extremities. US/OB Anatomy Scan IMPRESSION: Normal anatomic survey. Single live intrauterine gestation. Measurements indicating 19 week 5 day gestation with JANKI 06/19/2018.. Closely concordant with expected dates. No acute or maternal abnormality is evident. Electronically Signed: Kevin Olivarez, at 14:51 EDT Tel , Service support , CC: Landon Bourgeois MD; Shruthi Mccabe MD Hydraulic Oil Tool Operator: Signed Observed: 12/31/2017 Status: F Source: REJI CULTURE, URINE 6:13 PM [facility] REPOSITORY Urine Culture ORGANISM 1: Mixed Gram Positive Organisms Belton Count >100,000 MIX CULTURE Mixed contaminants. Submit a new specimen if indicated. Performed By: #### M100.0650 #### [facility] [address] [place], [address] FABRICATION SPECIALIST OFFICE VISIT Observed: 12/31/2017 Status: F Source: REJI REPORT 1:53 PM [facility] REPOSITORY [facility] [address] [place] [address] OFFICE VISIT Date of Service: 12/31/17 MR#: [id number] Acct: [id number] Name: ELIEL WILEY Rep #: [id number] : 1985 Provider: Shruthi Mccabe MD Age/Sex: 32/F [place] [facility] [place] Status: Signed Intake Vital Signs12/31/17 Height 5 ft 4 in 12/31/17 Weight: 181 lb 6 oz 12/31/17 Body Mass Index (BMI) 31.1 12/31/17 Blood Pressure 100/65 Intake Visit Reasons: est ob 15 weeks Is patient in pain?: Yes (Having lower back pressure in the morning and at night) Pain scale (1-10): 4 Allergies sertraline [From Zoloft] Allergy (Verified 12/31/17 13:33) Other alcohol Adverse Reaction (Verified 12/31/17 13:33) Other Medications Calcium Carbonate [Calcium] 500 mg PO DAILY 02/01/17 [History Confirmed 12/31/17] ascorbic acid (vitamin C) 500 mg capsule mg PO 10/18/17 [History Confirmed 12/31/17] cholecalciferol (vitamin D3) 2,000 unit capsule 2,000 unit PO QDAY 10/18/17 [History Confirmed 12/31/17] escitalopram 10 mg tablet 10 mg PO QDAY 10/18/17 [History Confirmed 12/31/17] lactobacillus combination no.8 3 billion cell capsule 3,000 mmu cells PO QDAY 10/18/17 [History Confirmed 12/31/17] levothyroxine 125 mcg capsule 125 mcg PO QDAY 10/18/17 [History Confirmed 12/31/17] magnesium oxide 400 mg capsule 400 mg PO QDAY cap 10/18/17 [History Confirmed 12/31/17] multivitamin tablet 1 tab PO QDAY 10/18/17 [History Confirmed 12/31/17] omega-3 fatty acids 1,000 mg capsule 1,000 mg PO QDAY 10/18/17 [History Confirmed 12/31/17] Nasal spray INTRANASAL 12/05/17 [History Confirmed 12/31/17] Nature Made Cranberry .ROUTE 12/05/17 [History Confirmed 12/31/17] Last Menstral Period: 08/15/17 Zika: Zika virus screening: Negative : No PFSH PFSH Medical History Anixety and Depression (Acute) Hypothyroidism (Chronic) Family History Unknown Diabetes Uncle Diabetes Social History Smoking Status: Never smoker alcohol intake: never substance use type: does not use caffeine: Yes what type of physical activity do you participate in: none seatbelt use: always do you feel safe at home: Yes additional social history: [facility] Pregan[facility] History 1 Elective abortions Hx Para 1 Spontaneous abortions Past Pregnancies Del. DatName GA[facility]eksOutcome [facility] LocaProviderFOB [facility] ht en ia tn Unknown 2016 Syl40 live birNSVD via - [facility] l term HPI est ob 15 weeks: Details: ELIEL WILEY is a 32 year old who presents for routine OB visit. OB Visit JANKI Calculator Estimated Delivery Date 06/22/18 Based on Ultrasound Date 11/05/17 Current WG 15w 2d Number 1 Expected Delivery Route/Plan Specific Issue/Plans flu vaccine: [] minichart given: [] tdap vaccine: [] rhogam: [] LARC form signed: [] labor support person: [] pain management: [] cut cord/dad catch: [] : [] PP control planned: [] special requests: [] Initial Weight: 179 lb Date Weight BP Urine PrFHR FuHt Pres MoCTX DilationFetal StVisit NoProviderComments E ot v te GA G Effac lucose ed Visit Notes Visit Date: 12/31/17 no vb cramping Shruthi Mccabe MD on 12/31/17 Visit Date: 12/05/17 no vb lof no regular ctx Shruthi Mccabe MD on 12/05/17 Visit Date: 11/05/17 No visit notes to display ACOG First Trimester First Trimester: Discussed Diagnostics Diagnostics Labs Blood Type O NEGATIVE 12/05/17 Antibody Screen NEGATIVE 12/05/17 Hct 38.0 % (37-47) 12/05/17 Hgb 12.4 g/dl (12.0-15.0) 12/05/17 Rubella IgG Antibody 183.0 IU/mL 12/05/17 RPR NONREACTIVE (NONREACTIVE) 12/05/17 Hep Bs Antigen Negative (Negative) 12/05/17 Chlam trachomat DNA PCR Negative (Negative) 11/05/17 N.gonorrhoeae DNA (PCR) Negative (Negative) 11/05/17 Group B Strep DNA POSITIVE (Negative) H 03/09/17 Rhogam given: No 04/08/17 Miscellaneous Test 05/18/17 Details: HIV: Urine Culture: Sequential Screen: NIPT Screen: Assessment AND Plan Problems 1. Rh negative status during in second trimester O09.892; Z67.91 rhogam at 28 weeks and PRN 2. Short interval between pregnancies affecting , antepartum O09.899 3. Asymptomatic bacteriuria during in first trimester O99.89; R82.71 macrobid, needs repeat culture 4. Acquired hypothyroidism E03.9 Started levothyroxine 10/18/17 5. Supervision of high risk in second trimester O09.92 PRR JANKI 06/22/18 PC Erika Adames Plan Orders placed: none ACOG trimester education reviewed and updated. see problem list details for updated plan management information. GA appropriate handout given. Orders Orders: Coding Level of Care Code OB Routine Diagnoses Rh negative status during in second trimester O09.892; Z67.91 Trimester: second trimester Short interval between pregnancies affecting , antepartum O09.899 Asymptomatic bacteriuria during in first trimester O99.89; R82.71 Acquired hypothyroidism E03.9 Hypothyroidism type: acquired Supervision of high risk in second trimester O09.92 Trimester: second trimester 12/31/17 1353 <Electronically signed by Shruthi Mccabe MD> Date Shruthi Mccabe MD Cosigner Signature: Date (if applicable) CC: CBC W/DIFF, AUTOMATED Collected: 12/05/2017 Status: F Source: REJI 11:09 AM [facility] REPOSITORY TYPE CODE TESTS RESULT OUT OF RANGE REFERENCE UNITS LAB L100.1000 4.4-11.0 K/mm3 Normal WBC 7.8 LAB L100.1200 4.2-5.4 M/mm3 Normal RBC 4.34 LAB L100.1300 12.0-15.0 g/dl Normal HGB 12.4 LAB L100.1400 37-47 % Normal HCT 38.0 LAB L100.1500 81-99 fL Normal MCV 87.6 LAB L100.1600 27.0-32.0 pg Normal MCH 28.6 LAB L100.1700 32-36 g/gl Normal MCHC 32.6 LAB L100.1810 11.6-14.6 % High RDW CV 15.3 LAB L100.1820 35.1-43.9 fl High RDW SD 49.4 LAB L100.1900 150-450 K/mm3 Normal PLT 281 LAB L100.2000 6.2-12.0 fl Normal MPV 9.4 LAB L100.2100 47-70 % Normal NEUT% 64.4 LAB L100.2200 19-41 % Normal LY% 24.9 LAB L100.2300 0-10 % Normal MONO% 7.9 LAB L100.2400 0-5 % Normal EO% 2.4 LAB L100.2500 0-1 % Normal BASO% 0.3 LAB L100.2550 0.0-0.9 % Normal IM GRAN % 0.100 Result Comment: IG% - Immature Granulocytes (promyelocytes, myelocytes and metamyelocytes) > 1% indicates that a LEFT SHIFT is Present. LAB L100.2620 2.0-7.7 X10 3/uL Normal Absolute Neut 5.0 LAB L100.2720 0.83-4.51 X10 3/ul Normal Absolute Lymph 1.95 Performed By: #### L100.0100 #### [facility] [address] [place], [address] THYROID STIM HORMONE Collected: 12/05/2017 Status: F Source: [place] (TSH) 11:09 AM [facility] REPOSITORY TYPE CODE TESTS RESULT OUT OF RANGE REFERENCE UNITS LAB L501.9520 0.358-3.74 uIU/mL Normal TSH 1.50 Performed By: #### L501.9520, L506.0400 #### [facility] [place], [address] T4 FREE DIRECT Collected: 12/05/2017 Status: F Source: [place] 11:09 AM [facility] REPOSITORY TYPE CODE TESTS RESULT OUT OF RANGE REFERENCE UNITS LAB L506.0400 0.76-1.46 ng/dL Normal T4 FREE 1.16 DIRECT Performed By: #### L501.9520, L506.0400 #### [facility] [facility] [place], [address] TYPE AND SCREEN Collected: 12/05/2017 Status: F Source: [place] 11:09 AM [facility] REPOSITORY Order Comment: Reason for Type AND Screen/Red Cells: TYPE CODE TESTS RESULT OUT OF RANGE REFERENCE UNITS LAB B10.0800 O Normal BLOOD TYPE GEL NEGATIVE LAB B100.4000 Normal Antibody NEGATIVE Screen Performed By: #### B101.7450, L509.4000, L3890.6005 #### [facility] [address] [place], [address] #### L3100.0390 #### [facility] (refer to report for specific site) refer to report for address and phone number RUBELLA IGG Collected: 12/05/2017 Status: F Source: REJI 11:09 AM [facility] REPOSITORY TYPE CODE TESTS RESULT OUT OF RANGE REFERENCE UNITS LAB L509.4000 IU/mL Normal Rubella IgG 183.0 Result Comment: Antibody results Interpretation of Immune Status < 5 IU/ml Presumed Non-immune 5 - < 10 IU/ml Equivocal > or = 10 IU/ml Presumed Immune Performed By: #### B101.7450, L509.4000, L3890.6005 #### [facility] [address] [facility] [facility] [address] #### L3100.0390 #### [facility] (refer to report for specific site) refer to report for address and phone number HIV - [facility] Collected: 12/05/2017 Status: F Source: REJI 11:09 AM [facility] REPOSITORY TYPE CODE TESTS RESULT OUT OF RANGE REFERENCE UNITS LAB L3890.6005 Nonreactive Normal HIV - [facility] Non-Reactive Performed By: #### B101.7450, L509.4000, L3890.6005 #### [facility] [place], [address] #### L3100.0390 #### [facility] (refer to report for specific site) refer to report for address and phone number HEPATITIS B SURFACE Collected: 12/05/2017 Status: F Source: REJI AG 11:09 AM [facility] REPOSITORY TYPE CODE TESTS RESULT OUT OF RANGE REFERENCE UNITS LAB L3100.0400 Negative Normal HB Negative SURF AG Result Comment: Performed at: - [facility] [address] [place] [id number] Antique Refinisher: Adebayo Oakes PhD, Phone: [phone] Performed By: #### B101.7450, L509.4000, L3890.6005 #### [facility] [place], [address] #### L3100.0390 #### [facility] (refer to report for specific site) refer to report for address and phone number RAPID PLASMIN REAGIN Collected: 12/05/2017 Status: F Source: [place] (RPR) 11:09 AM [facility] REPOSITORY TYPE CODE TESTS RESULT OUT OF REFERENCE UNITS RANGE LAB L700.5000 NONREACTIVE NONREACTIVE Normal RPR Performed By: #### L700.5000 #### [place] [facility] [address] [place], [address] FABRICATION SPECIALIST OFFICE VISIT Observed: 12/05/2017 Status: F Source: REJI REPORT 10:40 AM [facility] REPOSITORY [facility] [address] [place] [place] [address] OFFICE VISIT Date of Service: 12/05/17 MR#: [id number] Acct: [id number] Name: ELIEL WILEY Rep #: [id number] : 1985 Provider: Shruthi Mccabe MD Age/Sex: 32/F [place] [facility] [place]: Signed Intake Vital Signs12/05/17 Height 5 ft 4 in 12/05/17 Weight: 182 lb 4 oz 12/05/17 Body Mass Index (BMI) 31.2 12/05/17 Blood Pressure 110/71 Intake Visit Reasons: est ob 11 weeks Allergies sertraline [From Zoloft] Allergy (Verified 11/05/17 08:33) Other alcohol Adverse Reaction (Verified 11/05/17 08:33) Other Medications Calcium Carbonate [Calcium] 500 mg PO DAILY 02/01/17 [History Confirmed 11/05/17] ascorbic acid (vitamin C) 500 mg capsule mg PO 10/18/17 [History Confirmed 11/05/17] cholecalciferol (vitamin D3) 2,000 unit capsule 2,000 unit PO QDAY 10/18/17 [History Confirmed 11/05/17] escitalopram 10 mg tablet 10 mg PO QDAY 10/18/17 [History Confirmed 11/05/17] lactobacillus combination no.8 3 billion cell capsule 3,000 mmu cells PO QDAY 10/18/17 [History Confirmed 11/05/17] levothyroxine 125 mcg capsule 125 mcg PO QDAY 10/18/17 [History Confirmed 11/05/17] magnesium oxide 400 mg capsule 400 mg PO QDAY cap 10/18/17 [History Confirmed 11/05/17] multivitamin tablet 1 tab PO QDAY 10/18/17 [History Confirmed 11/05/17] omega-3 fatty acids 1,000 mg capsule 1,000 mg PO QDAY 10/18/17 [History Confirmed 11/05/17] Nasal spray INTRANASAL 12/05/17 [History Confirmed 12/05/17] Nature Made Cranberry .ROUTE 12/05/17 [History Confirmed 12/05/17] Last Menstral Period: 08/15/17 Zika: Zika virus screening: Negative [facility] PFS Medical History Anixety and Depression (Acute) Hypothyroidism (Chronic) Family History Unknown Diabetes Uncle Diabetes Social History Smoking Status: Never smoker alcohol intake: never substance use type: does not use caffeine: Yes what type of physical activity do you participate in: none seatbelt use: always do you feel safe at home: Yes additional social history: [facility] Pregancy History 1 Elective abortions Hx Para 1 Spontaneous abortions Past Pregnancies Del. DatName GA/WeeksOutcome Route [facility] LocaProviderFOB e ht en ia tn Unknown 2017 Syl40 [facility]NSVD [facility] HPI est ob 11 weeks: Details: ELIEL WILEY is a 32 year old who presents for routine OB visit. OB Visit JANKI Calculator Estimated Delivery Date 06/22/18 Based on Ultrasound Date 11/05/17 Current WG 11w 4d Number 1 Expected Delivery Route/Plan Specific Issue/Plans flu vaccine: [] minichart given: [] tdap vaccine: [] rhogam: [] LARC form signed: [] labor support person: [] pain management: [] cut cord/dad catch: [] : [] PP control planned: [] special requests: [] Initial Weight: 179 lb Date Weight BP Urine PFHR FuHt Pres MCTX DilatioFetal SVisit NProvideComment rot ov n t ote r s EGA Ef Gluco faced se 11/05/1178 lb 128/64 8 (+0 oz) 7w 2d Visit Notes Visit Date: 12/05/17 no vb lof no regular ctx Shruthi Mccabe MD on 12/05/17 Visit Date: 11/05/17 No visit notes to display ACOG First Trimester First Trimester: Discussed Diagnostics Diagnostics Labs Blood Type O NEGATIVE 04/06/17 Antibody Screen NEGATIVE 04/06/17 Hct 33.4 % (37-47) L 04/06/17 Hgb 11.1 g/dl (12.0-15.0) L 04/06/17 Chlam trachomat DNA PCR Negative (Negative) 11/05/17 N.gonorrhoeae DNA (PCR) Negative (Negative) 11/05/17 Group B Strep DNA POSITIVE (Negative) H 03/09/17 Rhogam given: No 04/08/17 Miscellaneous Test 05/18/17 Details: HIV: Urine Culture: Sequential Screen: NIPT Screen: Results [id number] Office Urine Glucose Negative Last Edit by Cassy Pollard on 12/05/17 10:25 Office Urine Protein Trace Last Edit by Cassy Pollard on 12/05/17 10:25 Assessment AND Plan Problems 1. Rh negative status during in first trimester O09.891; Z67.91 rhogam at 28 weeks and PRN 2. Short interval between pregnancies affecting , antepartum O09.899 3. Supervision of high risk in first trimester O09. JANKI 06/22/18 PC Erika Adames 4. Asymptomatic bacteriuria during in first trimester O99.89; R82.71 macrobid, needs repeat culture 5. Acquired hypothyroidism E03.9 Started levothyroxine 10/18/17 Plan Orders placed: labs ACOG trimester education reviewed and updated. see problem list details for updated plan management information. GA appropriate handout given. Orders Orders: Coding Level of Care Code OB Routine Diagnoses Rh negative status during in first trimester O09.891; Z67.91 Trimester: first trimester Short interval between pregnancies affecting , antepartum O09.899 Supervision of high risk in first trimester O09.91 Trimester: first trimester Asymptomatic bacteriuria during in first trimester O99.89; R82.71 Acquired hypothyroidism E03.9 Hypothyroidism type: acquired 12/05/17 1040 <Electronically signed by Shruthi Mccabe MD> Date Shruthi Mccabe MD Cosign Signature: Date (if applicable) CC: FABRICATION SPECIALIST OFFICE VISIT Observed: 11/07/2017 Status: F Source: [place] REPORT 6:07 AM [facility] [address] [place] [address] OFFICE VISIT Date of Service: 11/05/17 MR#: [id number] Acct: [id number] Name: ELIEL WILEY Rep #: [id number] : 1985 Provider: Shruthi Mccabe MD Age/Sex: 32/F [place] [facility] [place] Status: Signed Intake Vital Signs11/05/17 Height 5 ft 4 in 11/05/17 Weight: 179 lb 11/05/17 Body Mass Index (BMI) 30.7 11/05/17 Blood Pressure 128/64 Intake Visit Reasons: NEW OB AND REPEAT SCAN Filterer Required: No Is patient in pain?: No Allergies sertraline [From Zoloft] Allergy (Verified 11/05/17 08:33) Other alcohol Adverse Reaction (Verified 11/05/17 08:33) Other Medications Calcium Carbonate [Calcium] 500 mg PO DAILY 02/01/17 [History Confirmed 11/05/17] ascorbic acid (vitamin C) 500 mg capsule mg PO 10/18/17 [History Confirmed 11/05/17] cholecalciferol (vitamin D3) 2,000 unit capsule 2,000 unit PO QDAY 10/18/17 [History Confirmed 11/05/17] escitalopram 10 mg tablet 10 mg PO QDAY 10/18/17 [History Confirmed 11/05/17] lactobacillus combination no.8 3 billion cell capsule 3,000 mmu cells PO QDAY 10/18/17 [History Confirmed 11/05/17] levothyroxine 125 mcg capsule 125 mcg PO QDAY 10/18/17 [History Confirmed 11/05/17] magnesium oxide 400 mg capsule 400 mg PO QDAY cap 10/18/17 [History Confirmed 11/05/17] multivitamin tablet 1 tab PO QDAY 10/18/17 [History Confirmed 11/05/17] omega-3 fatty acids 1,000 mg capsule 1,000 mg PO QDAY 10/18/17 [History Confirmed 11/05/17] nitrofurantoin monohydrate/macrocrystals 100 mg capsule 1 cap PO Q12H 7 Days #14 cap 11/06/17 [Rx] Last Menstral Period: 08/07/17 Zika: Zika virus screening: Negative : No PFSH PFSH Medical History Anixety and Depression (Acute) Hypothyroidism (Chronic) Family History Unknown Diabetes Uncle Diabetes Social History Smoking Status: Never smoker alcohol intake: never substance use type: does not use caffeine: Yes what type of physical activity do you participate in: none seatbelt use: always do you feel safe at home: Yes additional social history: [facility] Pregancy History 1 Elective abortions Hx Para 1 Spontaneous abortions Past Pregnancies Del. DatName GA/WeeksOutcome Route [facility] LocaProviderFOB e ht en th ia tn Unknown 2017 Syl40 live birNSVD via th - ful l term HPI NEW OB AND REPEAT SCAN: Details: ELIEL WILEY is a 32 year old who presents for New OB visit. OB Visit JANKI Calculator Estimated Delivery Date 05/14/18 Based on LMP (certain) 08/07/17 Current WG 13w 1d Number 1 Expected Delivery Route/Plan Specific Issue/Plans flu vaccine: [] minichart given: [] tdap vaccine: [] rhogam: [] LARC form signed: [] labor support person: [] pain management: [] cut cord/dad catch: [] : [] PP control planned: [] special requests: [] Initial Weight: Not Recorded Date Weight BP Urine PrFHR FuHt Pres MoCTX DilationFetal StVisit NoProviderComments E ot v te GA G Effac lucose ed Menstrual History Last Menstral Period: 08/07/17 Reported LMP: definite Normal amount/duration: Yes On hormonal BC at conception: No Antepartum Record Genetic Screening: Congenital Heart Defect: Patient (brother had ASD), Neural Tube Defect: Other, Hemoglobinopathy Or Carrier: Other, Cystic Fibrosis: Other, Chromosome Abnormality: Other, Elkin-Sachs: Other, Hemophilia: Other, Intellectual Disability/Autism: Other, Recurrent Loss/Stillbirth: Other, Other Structural Defect: Other, Other Genetic Disease: Other, Maternal Metabolic Disorder: Other Infection History: Live with someone with TB or Exposed to TB: No, Patient or Partner has history of Genital Herpes: No, Rash or Viral illness since last mentrual period: No, Prior GBS-Infected child: No, History of STD: No, HIV Infection: No, History of Hepatitis: No, Recent travel outside of [place]: No, Concern for Hep exposure: No, Varicella immune: Yes Medical History Medical History: Negative: Diabetes, Hypertension, Heart disease, Auto-immune disorder, Kidney disease/UTI, Neurologic/epilepsy, Psychiatric, Depression/ depression, Hepatitis/liver disease, Varicosities/phlebitis, Thyroid dysfunction, Trauma/domestic violence, History of blood transfusions, D (Rh) Sensitized, Pulmonary (e.g.,TB,Asthma), Seasonal allergies, Drug/latex allergies/reactions, Breast, Tubing Tester surgery, Operations/hospitalizations, Anesthetic complications, History of abnormal pap, Uterine anomaly/vidal, Infertility, Anti-retroviral treatment, Relevant family history, Other ACOG First Trimester First Trimester: Discussed ROS Const Denies fever(s), Reports system reviewed and no additional complaints, except as docu, Reports fatigue Eyes Reports system reviewed and no additional complaints, except as docu ENT Reports system reviewed and no additional complaints, except as docu Card Denies chest pain, Denies shortness of breath Resp Reports system reviewed and no additional complaints, except as docu, Denies shortness of breath, Denies cough GI Reports nausea, Denies abdominal pain Reports system reviewed and no additional complaints, except as docu Musc Reports system reviewed and no additional complaints, except as docu Skin/Breast Reports system reviewed and no additional complaints, except as docu Neuro Yes system reviewed and no additional complaints, except as docu Psych Reports system reviewed and no additional complaints, except as docu Endo Reports fatigue, Reports system reviewed and no additional complaints, except as docu Exam Const General: healthy appearing, comfortable, no acute distress Orientation: alert [facility] Head: normal to inspection, atraumatic, normocephalic Ears: external ears normal, hearing grossly normal bilaterally Nose: nares normal, external nose normal Mouth: oral mucosae normal Teeth and gingiva: dentition normal Eyes General: appearance normal, both eyes and all related structures Neck Neck: no lymphadenopathy, supple, normal visual inspection Thyroid: thyroid normal Chest Chest palpation AND inspection: normal inspection of the chest Resp Effort AND Inspection: normal respiratory effort GI Inspection: normal to inspection Palpation: soft, no hepatosplenomegaly General: bladder normal to palpation External Female Exam: normal external appearance, normal appearance of the urethra Urethra: normal appearance of the urethra Speculum Exam - Vagina: normal appearance of the vagina, normal vaginal discharge Speculum Exam - Cervix: normal appearance of the cervix Bimanual Exam- Vagina AND Uterus: bladder normal to palpation, normal bimanual exam, uterus non-tender, other Bimanual Exam- Adnexa, other: adnexae non-tender Skin General: no rashes or lesions noted Neuro Motor: muscle tone normal throughout, no movement abnormalities noted Extrem General: normal to inspection, full ROM Assessment AND Plan Problems 1. Acquired hypothyroidism E03.9 Started levothyroxine 10/18/17 2. Supervision of high risk in first trimester O. JANKI PC Erika Adames 3. Short interval between pregnancies affecting , antepartum O09.899 4. Asymptomatic bacteriuria during in first trimester O99.89; R82.71 macrobid, needs repeat culture Plan Patient oriented to practice and discussed care expectations and screenings. OG book offered to patient. labs and 19-20 week anatomy ultrasound ordered. see problem list details for plan information. Genetic screening offered to patient and patient chose: declines Orders Orders: Supplemental Info ACOG book given and patient encouraged to read about nutrition, exercise, weight gain, and food avoidance in . Coding Level of Care Code OB Routine Diagnoses Acquired hypothyroidism E03.9 Hypothyroidism type: acquired Supervision of high risk in first trimester O09. Trimester: first trimester Short interval between pregnancies affecting , antepartum O09.899 Asymptomatic bacteriuria during in first trimester O99.89; R82.71 11/07/17 0607 <Electronically signed by Shruthi Mccabe MD> Date Shruthi Chaparro Signature: Date (if applicable) CC: CT/NG W[facility] BY PCR Collected: 11/05/2017 Status: F Source: [place] 6:15 PM [facility] REPOSITORY TYPE CODE TESTS RESULT OUT OF RANGE REFERENCE UNITS LAB L8200.2100 Negative Normal Chlam Negative Trac PCR LAB L8200.2200 Negative Normal NG by Negative PCR Performed By: #### L8200.1999, M100.0650 #### [facility] [address] [facility] [place], [place], [address] Observed: 11/05/2017 Status: F Source: [place] CULTURE, URINE 6:15 PM [facility] REPOSITORY Urine Culture ORGANISM 1: Presumptive E. coli [place] Count >100,000 Presumptive E. coli: REACTION Amoxacillin/Clavulanic Acid $ 8 S Ampicillin $ >=32 R Ampicillin/Sulbactam $ 16 I Cefazolin $ <=4 S Cefepime $ <=1 S Ceftriaxone $ <=1 S Ciprofloxacin $ <=0.25 S ESBL - Ertapenim $$$ <=0.5 S Gentamicin $ <=1 S Imipenem *NF <=0.25 S Levofloxacin $ <=0.12 S Nitrofurantoin $ <=16 S Piperacillin/Tazobactam $$ <=4 S Tobramycin $ <=1 S Trimethoprim/Sulfametho $ >=320 R (NF) indicates non-formulary drug at [facility]. Approval by Infectious Disease Specialist required before non-formulary drugs may be ordered and/or dispensed. Performed By: #### L8200.1999, M100.0650 #### [facility] [address] [place], [place], [address] HCG TITER QUANT., Collected: 10/18/2017 Status: F Source: [place] SERUM 4:41 PM [facility] REPOSITORY TYPE CODE TESTS RESULT OUT OF RANGE REFERENCE UNITS LAB L700.8000 <9 non-preg mIU/mL High HCG 5107 QUANT. Performed By: #### L700.8000 #### [facility] [address] [place], [address] FABRICATION SPECIALIST OFFICE VISIT Observed: 10/18/2017 Status: F Source: [place]I REPORT 4:32 PM [facility] REPOSITORY [facility] [address] [place] [place] [address] OFFICE VISIT Date of Service: 10/18/17 MR#: [id number] Acct: [id number] Name: ELIEL WILEY Rep #: [id number] : 1985 Provider: HANH Mathur Age/Sex: 32/F Location[place] [facility] [place] Status: Signed Intake Vital Signs10/18/17 Height 5 ft 4 in 10/18/17 Weight: 180 lb 2 oz 10/18/17 Body Mass Index (BMI) 30.9 10/18/17 Blood Pressure 131/80 Intake Visit Reasons: New OB Filterer Required: No Is patient in pain?: No Allergies sertraline [From Zoloft] Allergy (Verified 10/18/17 16:17) Other alcohol Adverse Reaction (Verified 10/18/17 16:17) Other Medications Calcium Carbonate [Calcium] 500 mg PO DAILY 02/01/17 [History Confirmed 10/18/17] ascorbic acid (vitamin C) 500 mg capsule mg PO 10/18/17 [History Confirmed 10/18/17] cholecalciferol (vitamin D3) 2,000 unit capsule 2,000 unit PO QDAY 10/18/17 [History Confirmed 10/18/17] escitalopram 10 mg tablet 10 mg PO QDAY 10/18/17 [History Confirmed 10/18/17] lactobacillus combination no.8 3 billion cell capsule 3,000 mmu cells PO QDAY 10/18/17 [History Confirmed 10/18/17] levothyroxine 125 mcg capsule 125 mcg PO QDAY 10/18/17 [History Confirmed 10/18/17] magnesium oxide 400 mg capsule 400 mg PO QDAY cap 10/18/17 [History Confirmed 10/18/17] multivitamin tablet 1 tab PO QDAY 10/18/17 [History Confirmed 10/18/17] omega-3 fatty acids 1,000 mg capsule 1,000 mg PO QDAY 10/18/17 [History Confirmed 10/18/17] Is last menstrual period known: No Post menopausal: No Patient : No : No PFSH Medical History Anixety and Depression (Acute) Hypothyroidism (Chronic) Family History Unknown Diabetes Uncle Diabetes Social History Smoking Status: Never smoker alcohol intake: never substance use type: does not use caffeine: Yes what type of physical activity do you participate in: none seatbelt use: always do you feel safe at home: Yes additional social history: [facility] New OB: Details: ELIEL WILEY is a 32 year old who presents for early . Thinks LMP 08/07/17. Had positive UPT at home and at PCP today. Still lactating, daughter 6 months old Pregancy History 1 Elective abortions Hx Para 1 Spontaneous abortions Past Pregnancies Del. DatName GA/WeeksOutcome [facility] LocaProviderFOB e ht en th ia tn Unknown 2017 Syl40 live birNSVD via th - ful l term Exam Other: TVUS see small gestational sac but unable to visualize embryo/FHT. No bleeding. Assessment AND Plan Problems 1. Early stage of Z34.90 Plan Quant HCG today. Follow up dependent on that. Orders Orders: Medications Discontinued: ranitidine Discontinued Reason: Order [id number] mg PO BID Evelyn Mcdonald leted ibuprofen Discontinued Reason: Order [id number] mg PO Q6H PRN PRN Pain Evelyn Mcdonald eted Coding Level of Care Code Off vis,est,level 3 Diagnoses Early stage of Z34.90 10/18/17 1632 <Electronically signed by Mayra FENTON> Date Mayra FENTON Cosigner Signature: Date (if applicable) CC: TPO AB Collected: 09/13/2017 Status: F Source: [place] 4:22 PM SYSTEM REPOSITORY TYPE CODE TESTS RESULT OUT OF RANGE REFERENCE UNITS LAB TPO2 0.0-5.5 [IU]/mL High TPO Ab 3199.0 Performed By: #### TPO2 #### The performing lab is in the report. FABRICATION SPECIALIST OFFICE VISIT Observed: 07/12/2017 Status: F Source: REJI REPORT 10:57 AM [facility] REPOSITORY [facility] [address] [place] [address]. [address] [place] [address] OFFICE VISIT Date of Service: 07/10/17 MR#: [id number] Acct: [id number] Name: ELIEL WILEY Rep #: [id number] : 1985 Provider: HANH Mathur Age/Sex: 32/F Location[place] [facility] [place] Status: Signed Intake Vital Signs07/10/17 Height 5 ft 4 in 07/10/17 Weight: 171 lb 07/10/17 Body Mass Index (BMI) 29.3 Intake Visit Reasons: BREAST ISSUE Chief Complaint: breast issue Filterer Required: No Is patient in pain?: No Allergies sertraline [From Zoloft] Allergy (Verified 07/10/17 14:36) Other alcohol Adverse Reaction (Verified 07/10/17 14:36) Other Medications Calcium Carbonate [Calcium] 500 mg PO DAILY 02/01/17 [History Confirmed 07/10/17] Ranitidine [Zantac] 150 mg PO BID #60 tab 02/01/17 [Rx Confirmed 04/06/17] Ibuprofen [Motrin] 600 mg PO Q6H PRN PRN #30 tab 04/07/17 [Rx] Oxycodone HCl/Acetaminophen [Percocet 5-325] 2 tab PO Q4H PRN PRN #15 tab 04/08/17 [Rx] citalopram 20 mg tablet 20 mg PO QDAY 07/10/17 [History Confirmed 07/10/17] Is last menstrual period known: No Post menopausal: No Patient : No : No PFSH Medical History Anixety and Depression (Acute) Family History Unknown Diabetes Uncle Diabetes Social History Smoking Status: Never smoker alcohol intake: never substance use type: does not use caffeine: Yes what type of physical activity do you participate in: none seatbelt use: always do you feel safe at home: Yes additional social history: [facility] [place] Pregancy History 1 Elective abortions Hx Para 1 Spontaneous abortions Past Pregnancies Del. DatName GA/WeeksOutcome Route [facility] LgAnesthesDel LocaProviderFOB e ht en ia tn Unknown 2017 Syl40 live birNSVD via [facility] l term HPI BREAST ISSUE: Details: ELIEL WILEY is a 32 year old who presents for right nipple pain and cracking. Was seen for mastitis per [facility] 1 month ago. States feels different, no swelling or warmth of breast, no fever/malaise like last time. Coding Level of Care Code Off vis,est,level 3 07/12/17 1057 <Electronically signed by Mayra FENTON> Date Mayra FENTON Cosigner Signature: Date (if applicable) CC: ALLERGIES ALLERGIES DATE TYPE / CODE NAME / CODE REACTION SEVERITY SOURCE 06/14/2018 Drug alcohol/F006 Other Unknown [facility] Allergy/4160 [id number]([place] [id number](SNOMED M) Repository CT) 06/14/2018 Drug sertraline/F Other Unknown [facility] Allergy/4160 [id number]([place] [id number](SNOMED NORM) Repository CT) ENCOUNTERS ENCOUNTERS ADMIT/DISCHARGE ACCOUNT NUMBER ADMITTING ENCOUNTER LOCATION SOURCE CLASS 06/22/2018 [id number] [facility] 06/16/2018/06/17/20 [id number] [facility] [place] Sh[place]i [facility] ding:WPRoom: Repository FP231Uhw: 1 06/16/2018 [id number] [facility], Ambulatory BMSBuilding: [place] Shruthi BMS.[facility] Repository 06/16/2018 [id number] [facility], Ambulatory BMSBuilding: [place] Shruthi BMS.[facility] Repository 06/14/2018 [id number] Ambulatory [facility] ding:LABSPEC Repository 06/14/2018/06/14/20 [id number] Ambulatory BMSBuilding: [place] 18 BMS.[facility] Repository 05/29/2018 [id number] Ambulatory [facility] ding:LABSPEC Repository 05/29/2018/05/29/20 [id number] Ambulatory BMSBuilding: [place] 18 BMS.[facility] Repository 05/15/2018/05/15/20 [id number] Ambulatory BMSBuilding: [place] 18 BMS.[facility] Repository 04/29/2018 [id number] Ambulatory [facility] ding:LABSPEC Repository 04/29/2018/04/29/20 [id number] Ambulatory BMSBuilding: [place] 18 BMS.[facility] Repository 04/17/2018/04/17/20 [id number] Ambulatory BMSBuilding: [place] 18 BMS.[facility] Repository 04/15/2018 [id number] Ambulatory [facility] ding:LAB Repository 04/08/2018 [id number] Ambulatory [facility] ding:LAB Repository 04/08/2018/04/08/20 [id number] Ambulatory BMSBuilding: [place] 18 BMS.[facility] Repository 02/25/2018 [id number] Ambulatory [facility] ding:LAB Repository 02/25/2018/02/26/20 [id number] Ambulatory BMSBuilding: [place] 18 BMS.[facility] Repository 01/28/2018/01/29/20 [id number] Ambulatory BMSBuilding: [place] 18 BMS.[facility] Repository 01/28/2018 [id number] Ambulatory [facility] ding:US Repository 12/31/2017 [id number] Ambulatory [facility] ding:LABSPEC Repository 12/31/2017/01/01/20 [id number] Ambulatory BMSBuilding: [place] 18 BMS.[facility] Repository 12/11/2017 [id number] Ambulatory [facility] ding:BHIOP Repository 12/05/2017 [id number] Ambulatory [facility] ding:LAB Repository 12/05/2017/12/06/19 [id number] Ambulatory BMSBuilding: [place] [facility] Repository 11/05/2017 [id number] Ambulatory [facility] ding:LABSPEC Repository 11/05/2017/11/06/19 [id number] Ambulatory BMSBuilding: [place] 18 [facility] Repository 11/01/2017 [id number] Ambulatory BMSBuilding: [place] [facility] Repository 10/18/2017 [id number] Ambulatory [facility] ding:LAB Repository 10/18/2017/10/19/19 [id number] Ambulatory BMSBuilding: [place] 18 [facility]MS[facility] Repository 10/11/2017 [id number] Ambulatory [facility] Repository 09/13/2017 [id number] Ambulatory [facility] Repository 07/10/2017/07/10/19 [id number] Ambulatory BMSBuilding: [place] 18 [facility]MS[facility] Repository PAYERS PAYERS ENCOUNTER GUARANTOR PAYER SUBSCRIBER SOURCE 06/22/2018 ELIEL James Primary JANNET [place] [id number] Insurance:ANTHEMPolic RUFENERDOB: [facility] y Number: [id number] [id number] Repository 00495Zce: 330 Date:1225-57-49[phone] () 326152FCVVBRS, [place] [address]PH: 06/22/2018 Secondary NOT GIVENUNK Reji Insurance:SELF PAY [facility] Number: Effective Repository Date:2018-06-14 06/16/2018 ELIEL E Primary JANNET Reji [id number] Insurance:ANTHEMPolic RUFENERDOB: [facility] STAN y Number: [id number], [place] [id number] Repository 48[address]Bwp: (330) Date:0575-76-06UG [phone] () [id number], [place] [address]JW: 06/16/2018 Secondary NOT GIVENUNK Reji Insurance:SELF PAY [facility] Number: Effective Repository Date:2018-06-16 06/16/2018 ELIEL E Primary JANNET [place] [id number] Insurance:ANTHEMPolic RUFENERDOB: [facility] y Number: [id number], [place] [id number] Repository 38981Fko: (330) Date:0683-96-07FS [phone] () 375442INJPITJ, [place] [address]JM: 06/16/2018 Secondary NOT GIVENUNK Reji Insurance:SELF PAY [facility] Number: Effective Repository Date:2018-06-16 06/16/2018 ELIEL E Primary JANNET [place] [id number] Insurance:ANTHEMPolic RUFENERDOB: [facility] y Number: [id number], [place] [id number] Repository 60[address]Bxh: (330) Date:7306-79-27CV [phone] () 327991DHSVAYJ, [place] [address]OV: 06/16/2018 Secondary NOT GIVENUNK Reji Insurance:SELF PAY [facility] Number: Effective Repository Date:2018-06-16 06/14/2018 ELIEL E Primary JANNET [place] [id number] Insurance:ANTHEMPolic RUFENERDOB: [facility] y Number: [id number], [place] [id number] Repository 988[address]Mwi: (330) Date:3908-39-30KX [phone] () 297166HHWIMAW, [place] [address]JZ: 06/14/2018 Secondary NOT GIVENUNK [place] Insurance:SELF PAY [facility] Number: Effective Repository Date:2018-06-14 06/14/2018 ELIEL E Primary JANNET Reji [id number] Insurance:ANTHEMPolic RUFENERDOB: Community STAN y Number: [id number], [place] [id number] Repository 628[address]Wkp: (330) Date:2650-05-90PQ [phone] () [id number] [place] [address]LM: 06/14/2018 Secondary NOT GIVENUNK Reji Insurance:SELF PAY [facility] Number: Effective Repository Date:2018-04-17 05/29/2018 ELIEL E Primary NOT GIVENUNK [place] [id number] Insurance:SE[place] Number: Effective Repository [phone]: (330) Date:2018-05-29 [phone] () 05/29/2018 ELIEL E Primary JANNET Reji [id number] Insurance:ANTHEMPolic RUFENERDOB: Community STAN y Number: [id number], [place] [id number] Repository 648[address]Quo: (330) Date:9950-43-64SR [phone] () [id number] [place] [address]XW: 05/29/2018 Secondary NOT GIVENUNK Reji Insurance:SELF PAY [facility] Number: Effective Repository Date:2018-05-29 05/15/2018 ELIEL E Primary JANNET [place] [id number] Insurance:ANTHEMPolic RUFENERDOB: Community STAN y Number: [id number], [place] [id number] Repository [address]Lea: (330) Date:8089-84-14WL [phone] () 015141XLTHHAN, [place] [address]OZ: 05/15/2018 Secondary NOT GIVENUNK Reji Insurance:SELF PAY [facility] Number: Effective Repository Date:2018-05-15 04/29/2018 ELIEL E Primary JANNET Reji [id number] Insurance:ANTHEMPolic RUFENERDOB: [facility] STAN y Number: [id number], [place] [id number] Repository 22146Moh: (330) Date:4130-95-81AV [phone] () 468443VYUFDTD, [place] [address]MM: 04/29/2018 Secondary NOT GIVENUNK [place] Insurance:SELF PAY [facility] Number: Effective Repository Date:2018-04-29 04/29/2018 ELIEL E Primary JANNET [place] [id number] Insurance:ANTHEMPolic RUFENERDOB: [facility] y Number: [id number], [place] [id number] Repository 79863Ugz: (330) Date:9720-80-70ID [phone] () 632484JHSTUNO, [place] [address]BZ: 04/29/2018 Secondary NOT GIVENUNK [place] Insurance:SELF PAY [facility] Number: Effective Repository Date:2018-04-29 04/17/2018 ELIEL E Primary JANNET [place] [id number] Insurance:ANTHEMPolic RUFENERDOB: [facility] y Number: [id number], [place] [id number] Repository 25162Kdl: (330) Date:5916-24-37NB [phone] () 272824GBIYVIY, [place] [address]HT: 04/17/2018 Secondary NOT GIVENUNK Reji Insurance:SELF PAY [facility] Number: Effective Repository Date:2018-04-17 04/15/2018 ELIEL E Primary JANNET [place] [id number] Insurance:ANTHEMPolic RUFENERDOB: [facility] y Number: [id number], [place] [id number] Repository 31260Gli: (330) Date:5478-54-29KR [phone] () 385624KIFBHGA, [place] [address]PA: 04/15/2018 Secondary NOT GIVENUNK Reji Insurance:SELF PAY [facility] Number: Effective Repository Date:2018-04-08 04/08/2018 ELIEL E Primary JANNET Reji [id number] Insurance:ANTHEMPolic RUFENERDOB: Community STAN y Number: [id number], [place] [id number] Repository 58741Wmn: (330) Date:7287-11-04UB [phone] () [address] [place] [address]ND: 04/08/2018 Secondary NOT GIVENUNK Reji Insurance:SELF PAY [facility] Number: Effective Repository Date:2018-04-08 04/08/2018 ELIEL E Primary JANNET Reji [id number] Insurance:ANTHEMPolic RUFENERDOB: [facility] y Number: [id number], [place] [id number] Repository 19868Gzt: (330) Date:0023-12-73BO [phone] () [id number] [place] [address]TJ: 04/08/2018 Secondary NOT GIVENUNK Reji Insurance:SELF PAY [facility] Number: Effective Repository Date:2018-04-08 02/25/2018 ELIEL E Primary JANNET Reji [id number] Insurance:ANTHEMPolic RUFENERDOB: [facility] STAN y Number: [id number], [place] [id number] Repository 025[address]Aqe: (330) Date:8798-06-02UE [phone] () 207812FMNFWND, [place] [address]JS: 02/25/2018 Secondary NOT GIVENUNK [place] Insurance:SELF PAY [facility] Number: Effective Repository Date:2018-02-25 02/25/2018 ELIEL E Primary JANNET [place] [id number] Insurance:ANTHEMPolic RUFENERDOB: [facility] STAN y Number: [id number], [place] [id number] Repository 25310Rnn: (330) Date:6927-68-01TL [phone] () 356427PVZKPXINEY JOAQUIN [address]EJ: 02/25/2018 Secondary NOT GIVENUNK Reji Insurance:SELF PAY [facility] Effective Repository Date:2018-02-25 01/28/2018 EILEL E Primary JANNET [place] [id number] Insurance:ANTHEMPolic RUFENERDOB: Community STAN y Number: [id number], [place] [id number] Repository 76[address]Cbm: (330) Date:3064-33-94MD [phone] () NEY ACUÑA [address]WJ: 01/28/2018 Secondary NOT GIVENUNK Reji Insurance:SELF PAY [facility] Number: Effective Repository Date:2018-01-28 01/28/2018 ELIEL E Primary JANNET [place] [id number] Insurance:ANTHEMPolic RUFENERDOB: Community ST[facility] y Number: [id number], [place] [id number] Repository 79399Ivz: (330) Date:5396-34-13YD [phone] () [id number] JOAQUIN [address]XV: 01/28/2018 Secondary NOT GIVENUNK Reji Insurance:SELF PAY [facility] Number: Effective Repository Date:2018-01-01 12/31/2017 ELIEL E Primary JANNET Reji [id number] Insurance:ANTHEMPolic RUFENERDOB: Community [place] y Number: [id number], [place] [id number] Repository 03634Mng: (330) Date:0467-07-25ZQ [phone] () [id number] JOAQUIN [address]PC: 12/31/2017 Secondary NOT GIVENUNK Reji Insurance:SELF PAY [facility] Number: Effective Repository Date:2017-12-31 12/31/2017 ELIEL E Primary JANNET [place] [id number] Insurance:ANTHEMPolic RUFENERDOB: Community STAN y Number: [id number], [place] [id number] Repository 71816Fzu: (330) Date:6768-63-25TG [phone] () NEY ACUÑA [address]NH: 12/31/2017 Secondary NOT GIVENUNK [place] Insurance:SELF PAY [facility] Number: Effective Repository Date:2017-12-05 12/11/2017 ELIEL E Primary JANNET [place] [id number] Insurance:ANTHEMPolic RUFENERDOB: Community STAN y Number: [id number], [place] [id number] Repository 63422Otw: (330) Date:3339-01-29AD [phone] () NEY ACUÑA [address]NJ: 12/11/2017 Secondary NOT GIVENUNK Reji Insurance:SELF PAY [facility] Number: Effective Repository Date:2017-12-11 12/05/2017 ELIEL E Primary JANNET [place] [id number] Insurance:ANTHEMPolic RUFENERDOB: Community STAN y Number: [id number], [place] [id number] Repository 99481Bku: (330) Date:5737-46-42IA [phone] () 159769QWBNKOYNEY JOAQUIN [address]YX: 12/05/2017 Secondary NOT GIVENUNK [place] Insurance:SELF PAY [facility] Number: Effective Repository Date:2017-12-05 12/05/2017 ELIEL E Primary JANNET [place] [id number] Insurance:ANTHEMPolic RUFENERDOB: Community STAN y Number: [id number], [place] [id number] Repository 95[address]Eky: (330) Date:4817-77-38TJ [phone] () 662707XNAODIINEY JOAQUIN [address]ZG: 12/05/2017 Secondary NOT GIVENUNK [place] Insurance:SELF PAY [facility] Number: Effective Repository Date:2017-12-05 11/05/2017 ELIEL E Primary JANNET [place] [id number] Insurance:ANTHEMPolic RUFENERDOB: Community STAN y Number: [id number], [place] [id number] Repository 83890Gcr: (330) Date:0236-32-98ID [phone] () 885284UEIYWMFNEY JOAQUIN [address]JW: 11/05/2017 Secondary NOT GIVENUNK [place] Insurance:SELF PAY [facility]: Effective Repository Date:2017-11-05 11/05/2017 ELIEL E Primary JANNET [place]ji [id number] Insurance:ANTHEMPolic RUFENERDOB: Community STAN y Number: [id number], [place] [id number] Repository 43784Hbr: (330) Date:9396-20-78CB [phone] () 847106DUKBGUHNEY JOAQUIN [address]DO: 11/05/2017 Secondary NOT GIVENUNK Reji Insurance:SELF PAY [facility] Number: Effective Repository Date:2017-11-05 11/01/2017 ELIEL E Primary JANNET RUFENERUNK [place] [id number] Insurance:ANTHEMPolic [facility] STAN y Number: [place] [id number] Repository 21074Vtr: (330) Date:5297-78-67VG [phone] () 029745BONLGOMNEY JOAQUIN 01953XT: 11/01/2017 Secondary NOT GIVENUNK Reji Insurance:SELF PAY [facility] Number: Effective Repository Date:2017-10-22 10/18/2017 ELIEL E Primary JANNET RUFENERUNK [place] [id number] Insurance:ANTHEMPolic [facility] STAN y Number: [place] [id number] Repository 45806Vmy: (330) Date:1982-54-37EO [phone] () [id number] JOAQUIN [address]SW: 10/18/2017 Secondary NOT GIVENUNK Reji Insurance:SELF PAY [facility] Number: Effective Repository Date:2017-10-18 10/18/2017 ELIEL AMADORER63 Primary JANNET GONZALEZ [place] STAN Insurance:ANTHEMPolic Community madyson MEHTA y Number: Hospital [address]Xij: [id number] Repository [phone] Date:3277-93-12SU [address] () [id number] [place] [address]AZ: 10/18/2017 Secondary NOT GIVENUNK [place] Insurance:SELF PAY [facility] Number: Effective Repository Date:2017-10-18 10/11/2017 Eliel Primary [facility] RufenerDOB: Insurance:[place] RufenerDOB: [facility] [employer] [id number] Repository [employer] ShieldPolicy Number: HarjitflorMADYSON Effective Date: 18497Phn: () 09/13/2017 Eliel Primary [facility] RufenerDOB: Insurance:[place] RufenerDOB: [facility] [employer] [id number] Repository [employer] ShieldPolicy Number: HarjitflorMADYSON Effective Date: 548[address]Lzw: () 07/10/2017 ELIEL AMADORER63 Primary JANNET GONZALEZ [place] STAN Insurance:ANTHEMPolic Community madyson MEHTA y Number: Hospital 1960[address]Uoo: [id number] Repository [phone] Date:5160-23-53EG [address] () [id number] [place] [address]ZA: 07/10/2017 Secondary NOT GIVENUNK Reji Insurance:SELF PAY [facility] Number: Effective Repository Date:2017-07-05
== END ==
PROVIDERS: Family Provider Family Medicine; PCP Family Medicine; Referring Provider Obstetrics & Gynecology; Visit Provider Obstetrics & Gynecology
DX: Z34.90 Encounter for supervision of normal pregnancy, unspecified, unspecified trimester (principal)
CPT/HCPCS: 87077; 87081; 87186

== ENCOUNTER → 2018-06-14 18:03 | Outpatient (CLI) | payer BC, SELFPAY ==
[2018-06-14 11:41] VITALS: BMI 31.1
[2018-06-14 21:12] LABS: Group B Strep DNA By PCR POSITIVE (Negative); Probe Check PASS
== END ==
PROVIDERS: Family Provider Family Medicine; PCP Family Medicine; Referring Provider Obstetrics & Gynecology; Visit Provider Obstetrics & Gynecology
DX: O09.893 Supervision of other high risk pregnancies, third trimester (principal)
CPT/HCPCS: 87653

== ENCOUNTER 2018-06-16 04:24 | Inpatient (IN) | payer BC, SELFPAY ==
[2018-06-14 11:41] VITALS: BMI 31.1
[2018-06-16] MEDS: Lactated Ringers 1,000 ML 200 ML IV (03:55)
[2018-06-16 03:58] VITALS: BMI 31.4
[2018-06-16] MEDS: Ondansetron 4 MG/2 ML Vial IV ×2 (04:16→09:06)
[2018-06-16 04:36] LABS: Absolute Lymphocyte Count 1.59 X10^3/ul (0.83-4.51); Absolute Neutrophil Count 7.7 X10^3/uL (2.0-7.7); Basophil# 0.01 X10^3/uL; Basophil% 0.1 % (0-1); Eosinophil# 0.02 X10^3/uL; Eosinophils% 0.2 % (0-5); Hematocrit 39.3 % (37-47); Hemoglobin 13.1 g/dl (12.0-15.0); Lymphocyte # 1.59 X10^3/ul (4.0); Mean Corp Hgb Conc 33.3 g/gl (32-36); Mean Corpuscular Hgb 28.7 pg (27.0-32.0); Mean Platelet Vol. 10.2 fl (6.2-12.0); Monocyte# 0.64 X10^3/uL; Monocyte% 6.4 % (0-10); Neutrophil # 7.65 X10^3/uL (2.7-7.7); Platelet Count 253 K/mm3 (150-450); RBC Distribution Width CV 14.3 % (11.6-14.6); Red Blood Count 4.57 M/mm3 (4.2-5.4); White Blood Count 9.9 K/mm3 (4.4-11.0)
[2018-06-16] MEDS: Oxytocin 30 units/NS 500 ml 30 UNITS/500 ML IV.SOLN 334 UNITS IV (04:40)
[2018-06-16 04:43] LABS: POSITIVE COUNT NO; POSITIVE DIFFERENTIAL NO; POSITIVE MORPHOLOGY NO
[2018-06-16 05:21] LABS: ALB/GLOB Ratio 0.7 RATIO (0.9-2.4); AST(SGOT) 15 U/L (15-37); Alanine Aminotransfer ALT/SGPT 17 U/L (13-56); Alkaline Phosphatase 166 U/L (45-117); Anion Gap 14 (5-15); BUN 12 mg/dL (7-18); BUN/Creat Ratio 22.9 RATIO (10-20); Chloride 102 mmol/L (98-107); Creatinine, Serum 0.52 mg/dL (0.55-1.02); EST Glomerular Filtration Rate 145 mL/min (>60); Est Glom Filt Rate - Afr Amer 175 mL/min (>60); Estimated Creatinine Clearance 135.36 ml/min; Globulin 4.3 g/dL (2.2-4.2); Glucose 110 mg/dL (74-106); Potassium 3.6 mmol/L (3.5-5.1); Protein, Total 7.3 g/dL (6.4-8.2); Sodium Level 136 mmol/L (136-145)
--- NOTE | 2018-06-16 06:42 | PCM.HP.OB ---
- Problem List (1) Active labor at term Status: Acute (2) Positive GBS test Status: Acute (3) Depression affecting in third trimester, antepartum Status: Acute Comment: lexapro per PCP, counseled regarding risks of medication, counseling encouraged (4) Abnormal glucose affecting Status: Acute Comment: 3 hr GTT ordered (5) Status: Acute Qualifiers: Comment: genetic, carrier, and NT screening declined (6) Rh negative status during Status: Acute Qualifiers: Comment: rhogam at 28 weeks and PRN (7) Short interval between pregnancies affecting , antepartum Status: Acute (8) Supervision of high-risk Status: Acute Qualifiers: Comment: PRR JANKI 06/22/18 Girl PC Erika Zacarias (9) Asymptomatic bacteriuria during in first trimester Status: Acute Comment: macrobid, needs repeat culture (10) Hypothyroid Status: Acute Qualifiers: Comment: Started levothyroxine 10/18/17 History Date of Admission: 06/16/18 Final JANKI: 06/22/18 Gestational age: 39 Weeks and 1 Days History of this : This is a 33 year-old, at 39w1d weeks gestational age presents in active labor and was initially 3 cm and then may change to complete within an hour and delivered precipitously without complication. Medical History: Medical History (Last Reviewed 06/14/18 @ 11:41 by Cassy Pollard) Anixety and Depression Hypothyroidism E03.9 Allergies sertraline [From Zoloft] Allergy (Verified 06/14/18 11:41) Other dizziness, fainting alcohol Adverse Reaction (Verified 06/14/18 11:41) Other redness from topical rubbing alcohol Home Medications: Home Medications Calcium Carbonate [Calcium] 500 mg PO DAILY 02/01/17 ascorbic acid (vitamin C) 500 mg capsule mg PO 10/18/17 cholecalciferol (vitamin D3) 2,000 unit capsule 2,000 unit PO QDAY 10/18/17 escitalopram 10 mg tablet 10 mg PO QDAY 10/18/17 lactobacillus combination no.8 3 billion cell capsule 3,000 mmu cells PO QDAY 10/18/17 levothyroxine 125 mcg capsule 125 mcg PO QDAY 10/18/17 magnesium oxide 400 mg capsule 400 mg PO QDAY cap 10/18/17 multivitamin tablet 1 tab PO QDAY 10/18/17 omega-3 fatty acids 1,000 mg capsule 1,000 mg PO QDAY 10/18/17 Nasal spray INTRANASAL 12/05/17 Nature Made Cranberry .ROUTE 12/05/17 guaifenesin 100 mg/5 mL oral liquid 200 mg PO Q4H PRN 04/08/18 ondansetron HCl 4 mg tablet 4 mg PO Q6H PRN #60 tab 04/08/18 Citalopram [Celexa] 20 mg PO DAILY #30 tab 06/04/18 Smoking Status: Never smoker Alcohol: None Number of Fetus(es): 1 Heart Tracins moderate variability reactive no decelerations category 1 tracing TOCO Analysis: Every 2 to 3 minutes History Past Pregnancies: Past Pregnancies Previous term vaginal delivery uncomplicated Labs: Laboratory Results 06/16/18 06/16/18 06/16/18 04:15 04:15 04:15 WBC 9.9 RBC 4.57 Hgb 13.1 Hct 39.3 MCV 86.0 MCH 28.7 MCHC 33.3 RDW 14.3 RDW Differential 44.0 H Plt Count 253 MPV 10.2 Immature Gran % (Auto) 0.300 Neut % (Auto) 77.0 H Lymph % (Auto) 16.0 L Thomas % (Auto) 6.4 Eos % (Auto) 0.2 Baso % (Auto) 0.1 Absolute Neuts (auto) 7.7 Absolute Lymphs (auto) 1.59 Total Counted Not Reportable Sodium 136 Potassium 3.6 Chloride 102 Carbon Dioxide 20.0 L Anion Gap 14 BUN 12 Creatinine 0.52 L Estim Creat Clear Calc 135.36 Est GFR (MDRD) Af Amer 175 Est GFR (MDRD) Non-Af 145 BUN/Creatinine Ratio 22.9 H Glucose 110 H Calcium 9.0 Total Bilirubin 0.40 AST 15 ALT 17 Alkaline Phosphatase 166 H Total Protein 7.3 Albumin 3.0 L Globulin 4.3 H Albumin/Globulin Ratio 0.7 L Blood Type O NEGATIVE Antibody Screen NEGATIVE Mom's Labs & Results 06/16/18 06/16/18 06/16/18 04:15 04:15 04:15 WBC 9.9 RBC 4.57 Hgb 13.1 Hct 39.3 MCV 86.0 MCH 28.7 MCHC 33.3 RDW 14.3 RDW Differential 44.0 H Plt Count 253 MPV 10.2 Immature Gran % (Auto) 0.300 Neut % (Auto) 77.0 H Lymph % (Auto) 16.0 L Thomas % (Auto) 6.4 Eos % (Auto) 0.2 Baso % (Auto) 0.1 Absolute Neuts (auto) 7.7 Absolute Lymphs (auto) 1.59 Total Counted Not Reportable Sodium 136 Potassium 3.6 Chloride 102 Carbon Dioxide 20.0 L Anion Gap 14 BUN 12 Creatinine 0.52 L Estim Creat Clear Calc 135.36 Est GFR (MDRD) Af Amer 175 Est GFR (MDRD) Non-Af 145 BUN/Creatinine Ratio 22.9 H Glucose 110 H Calcium 9.0 Total Bilirubin 0.40 AST 15 ALT 17 Alkaline Phosphatase 166 H Total Protein 7.3 Albumin 3.0 L Globulin 4.3 H Albumin/Globulin Ratio 0.7 L Blood Type O NEGATIVE Antibody Screen NEGATIVE Course Did the patient receive Yes care? Labs HIV/AIDS Non-Reactive Current Obstetrical History Gestational Diabetes No Incompetent Cervix No Infertility No IUGR No Macrosomia No Hypertension/Pre-eclampsia No Placenta Previa/Abruption No PTL/PROM No Uterine anomaly No Oligohydramnios No Polyhydramnios No Multiple gestation No Past Medical History Asthma No Diabetes No Hypertension No Heart disease No Mitral valve prolapse No Neurologic/Seizure disorder/ No Migraines Kidney disease No Liver disease No Varicosities No Clotting disorders/Hx of DVT No Thyroid Dysfunction Yes: should be taking synthroid Other medical diseases No Psychiatric disorders No Major trauma No Abnormal PAP smear No Sleep apnea No Mammogram in the last 2 years No Social History Marital Status: Alleged father winifred wiley Hx Smoking No Smoking Status Never smoker Expected Infant Delivery Method: Spontaneous Vaginal Review of Systems Constitutional: Denies: Fever, Malaise Eyes: Denies: Blurred vision, Vision Change HEENT: Denies: Head Aches, Visual Changes Cardiovascular: Denies: Chest Pain, Palpitations Respiratory: Denies: Cough, Shortness of Breath, Wheezing Gastrointestinal: Denies: Abdominal Pain, Diarrhea, Nausea, Vomiting Genitourinary: Denies: Dysuria, Hematuria Musculoskeletal: Denies: Joint Pain, Muscle pain Skin: Denies: Lesions, Rash Neurological: Denies: Blurred vision, Focal weakness, Headaches Psychiatric: Denies: Anxiety, Depression Endocrine: Denies: Heat/ Cold Intolerance Hematologic/ Lymphatic: Denies: Easy Bruising, Easy Bleeding Physical Exam General: Alert, Cooperative, No apparent distress HEENT: Atraumatic, Normocephalic. Negative for: Thyromegaly, Lymphadenopathy Cardiovascular: Regular rate Lungs: Normal air movement Abdomen: Soft, Non Tender, Gravid Neurological: Deep Tendon Reflexes 2+/4 and Symmetrical, Neuro grossly intact. Negative for: Clonus [employer] IN[employer]: Normal external genitalia. Negative for: Vulvar lesions Estimated gestational size: Appropriate for gestational size Presentation: Cephalic Assessment/Plan All Active Problems (Last Reviewed 06/14/18 @ 11:41 by Cassy Pollard) Active labor at term (Acute) Positive GBS test (Acute) Depression affecting in third trimester, antepartum (Acute) Abnormal glucose affecting (Acute) (Acute) Rh negative status during (Acute) Short interval between pregnancies affecting , antepartum (Acute) Supervision of high-risk (Acute) Asymptomatic bacteriuria during in first trimester (Acute) Hypothyroid (Acute) This is a 33 year-old, at 39 weeks gestational age presents in active labor and delivered precipitously within an hour and a half of presentation Routine care GBS positive?did not receive antibiotics but water was only broken approximately 10-15 minutes prior to delivery of the infant Rh-.
--- NOTE | 2018-06-16 06:47 | OP.PCM_ITS ---
- Problem List (1) Active labor at term Status: Acute (2) Positive GBS test Status: Acute (3) Depression affecting in third trimester, antepartum Status: Acute Comment: lexapro per PCP, counseled regarding risks of medication, counseling encouraged (4) Abnormal glucose affecting Status: Acute Comment: 3 hr GTT ordered (5) Status: Acute Qualifiers: Comment: genetic, carrier, and NT screening declined (6) Rh negative status during Status: Acute Qualifiers: Comment: rhogam at 28 weeks and PRN (7) Short interval between pregnancies affecting , antepartum Status: Acute (8) Supervision of high-risk Status: Acute Qualifiers: Comment: PRR JANKI 06/22/18 Girl PC Erika Zacarias (9) Asymptomatic bacteriuria during in first trimester Status: Acute Comment: macrobid, needs repeat culture (10) Hypothyroid Status: Acute Qualifiers: Comment: Started levothyroxine 10/18/17 Vaginal Delivery Maternal Presentation: Active Labor 33-year-old at 39 weeks presents in active labor and delivered precipitously Amniotic Membrane Rupture Type: Spontaneous Amniotic Fluid Description: Clear Final JANKI: 06/22/18 Gestational age: 39 Weeks and 1 Days Date of Procedure: 06/16/18 Pre-Operative Diagnosis: Active labor Post-Operative Diagnosis: Same Surgery/ Procedure Performed: Spontaneous Vaginal Delivery Type of Anesthesia: None Description of Procedure: Patient began pushing and delivered the head in the JEFFREY presentation. The head was delivered atraumatically and a loose nuchal cord x1 was easily identified and reduced over the 's head. The anterior and posterior shoulders de livered without complication followed by the rest of the and the infant was placed on the maternal abdomen. Delayed cord clamping was employed for approximately 60 seconds. Cord was clamped and cut and gentle traction was applied to the cord and the placenta delivered spontaneously immediately following it was noted to be intact with three-vessel cord. The perineum and vagina were inspected and noted to have no significant laceration. EBL was 150 cc. Patient and infant tolerated delivery well. Presentation: JEFFREY Placental Delivery Description: Spontaneous Placenta Disposition: [facility] Cord Vessel Description: 3 Vessels Cord Entanglement: Around neck x 1, loose Estimated Blood Loss: 150 A gender: Female Episiotomy Description: None Laceration: None Medications given after delivery: IV Pitocin Complications: None
[2018-06-16 08:37] LABS: T4 Free Direct 0.92 ng/dL (0.76-1.46); Thyroid Stim Hormone (TSH) 2.26 uIU/mL (0.358-3.74)
[2018-06-16] MEDS: Naproxen 250 MG Tablet PO (13:01)
[2018-06-16 14:00] VITALS: BP 122/67; PULSE 92; RESP 16; TEMP 36.4; O2SAT 97
[2018-06-16] MEDS: Acetaminophen 500 MG Tablet 1000 MG PO (20:27)
[2018-06-16 20:34] VITALS: BP 104/71; PULSE 95; RESP 16; TEMP 36.7; O2SAT 98
--- NOTE | 2018-06-16 21:02 | NURSING ---
pt answered no to both PHQ questions, although she stated she does has history of battling some depression and anxiety. pt stated Dr. Montes is aware of this. pt has social service consult in already at this time, so there are no further needs.
[2018-06-17 00:33] VITALS: BP 106/75; PULSE 85; RESP 18; TEMP 36.4; O2SAT 96
--- NOTE | 2018-06-17 03:40 | DCINST_ITS ---
Discharge Diet: No Restrictions Discharge Activity: Return to Normal Activity, May not drive while taking narcotic pain medications., May Shower May resume sexual activity in: 4-6 weeks Call your doctor if your incision/area has: Continuous Slow Oozing, Sudden Increased Bleeding, Increased Pain/ Swelling, Increased Redness, Foul Smelling Discharge Additional Instructions: If you experience any of the following, contact your healthcare provider. * Bleeding that soaks a pad every hour for 2 hours * Fever 100.4 or higher * Unrelieved incision or abdominal pain * Swelling, redness, discharge or bleeding from your incision or episiotomy site * Your incision begins to separate * Problems urinating (including inability to urinate or burning while urinating). * Visual changes * Severe headache * Flu-like symptoms * Pain or redness in one of both of your breasts * Pain, warmth, tenderness or swelling in your legs, especially the calf area * Frequent nausea and vomiting * Symptoms of depression or anxiety If you experience any of the following, call 911 or go to the nearest Emergency Room. * Chest pain * Problems breathing * Seizure activity * Partial or complete paralysis of a body part, slurred speech, weakness or drooping of the face, or a sudden inability to walk or hold your balance Allergies/Adverse Reactions: Allergies sertraline [From Zoloft] Allergy (Verified 06/14/18 11:41) Other dizziness, fainting alcohol Adverse Reaction (Verified 06/14/18 11:41) Other redness from topical rubbing alcohol Medications to take at Discharge Calcium Carbonate [Calcium] 500 mg PO DAILY 02/01/17 ascorbic acid (vitamin C) 500 mg capsule mg PO 10/18/17 cholecalciferol (vitamin D3) 2,000 unit capsule 2,000 unit PO QDAY 10/18/17 escitalopram 10 mg tablet 10 mg PO QDAY 10/18/17 lactobacillus combination no.8 3 billion cell capsule 3,000 mmu cells PO QDAY 10/18/17 levothyroxine 125 mcg capsule 125 mcg PO QDAY 10/18/17 magnesium oxide 400 mg capsule 400 mg PO QDAY cap 10/18/17 multivitamin tablet 1 tab PO QDAY 10/18/17 omega-3 fatty acids 1,000 mg capsule 1,000 mg PO QDAY 10/18/17 Nasal spray INTRANASAL 12/05/17 Nature Made Cranberry .ROUTE 12/05/17 guaifenesin 100 mg/5 mL oral liquid 200 mg PO Q4H PRN 04/08/18 ondansetron HCl 4 mg tablet 4 mg PO Q6H PRN #60 tab 04/08/18 Citalopram [Celexa] 20 mg PO DAILY #30 tab 06/04/18 Please Follow Up With: Shruthi Mccabe MD - [phone] When: Call to make an appointment with your doctor in 6 weeks. If you had el evated Blood pressure or 4th degree laceration you will need to be seen in 2 weeks. Primary Care Physician: Landon Bourgeois MD [Primary Care Provider] - Test Results: Test results from this visit will be discussed in further detail at your follow- up appointment, if applicable.
[2018-06-17 04:43] VITALS: BP 110/79; PULSE 81; RESP 18; TEMP 36.4
[2018-06-17] MEDS: Naproxen 250 MG Tablet PO (08:00)
--- NOTE | 2018-06-17 08:03 | PCM.PN.OB ---
Patient Problems: Active and Suspected Problems (Last Reviewed 06/14/18 @ 11:41 by Cassy Pollard) Active labor at term (Acute) Subjective: Doing well. No SOB, CP. - Physical Exam General: Alert, Oriented x3 Abdomen: Soft, Non Tender, - - FF below U Vital Signs Temp Pulse Resp BP Pulse Ox 97.6 F L 81 18 110/79 96 06/17/18 04:43 06/17/18 04:43 06/17/18 04:43 06/17/18 04:43 06/17/18 00:33 Oxygen Delivery Method Room Air Weight: 182 lb 15.739 oz Body Mass Index (BMI) 31.4 Laboratory Tests Past 24 Hrs 06/16/18 06/16/18 07:45 07:45 TSH 2.26 Free T4 0.92 Screen NEGATIVE Baby's Blood Type O POSITIVE Baby's JORDAN NEGATIVE Medical Necessity - Tobacco Use Smoking Status: Never smoker Assessment/Plan All Active Problems (Last Reviewed 06/14/18 @ 11:41 by Cassy Pollard) Active labor at term (Acute) Positive GBS test (Acute) Depression affecting in third trimester, antepartum (Acute) Abnormal glucose affecting (Acute) (Acute) Rh negative status during (Acute) Short interval between pregnancies affecting , antepartum (Acute) Supervision of high-risk (Acute) Asymptomatic bacteriuria during in first trimester (Acute) Hypothyroid (Acute) PPD#1: Routine care. . Plans home later today
[2018-06-17 08:25] VITALS: BP 125/80; PULSE 86; RESP 16; TEMP 37.1; O2SAT 98
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
[2018-06-17 13:27] VITALS: BP 106/88; PULSE 88; RESP 16; TEMP 36.6
[2018-06-17 13:32] VITALS: BP 106/88; PULSE 88; RESP 16; TEMP 36.6
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
[2018-06-17 18:48] VITALS: BP 106/89; PULSE 86; RESP 18; TEMP 36.6
--- NOTE | 2018-07-22 15:47 | CASEMGMT ---
Social Work Labor and Delivery Unit Reason for Intervention this date: maternal follow through regarding emotional health issues and aftercare plan that was set at time of discharge from the hospital. Summary: This race and sports book writer has been in contact with [facility] program, Shaniqua Drew, regarding patient/mother of baby (MOB) response and follow up to treatment in the Intensive Outpatient program. Per Shaniqua, the MOB has been in conact via in-person or via phone about the program, intake was completed, but so far MOB has not started the program due to reported concerns with childcare and finances. At this point, MOB has stopped returning calls to the program, MOB has a mentor through the [employer], and no other mental health follow up in place for MOB known at this time. This race and sports book writer had considered a children services referral at the time of MOB and baby's discharge from the hospital, but as the MOB voiced intent and desire to seek out treatment for emotional health issues this race and sports book writer deiced not to initially make referral, as wanted to promote MOB's intent to make positive changes on own, denied active thoughts to harm self or others, as well as identified that could ask own mother/family for support. As MOB has not followed through with plan set in place at time of discharge, and as MOB voiced some significant safety concerns/symptoms during first period after first child, and as MOB's symptoms of depression were present during this as well as after of [place], as evidenced by depression screen done after delivery, this race and sports book writer decided to call [facility]. Concern that without treatment symptoms could worsen, and support system for MOB appears tenuous as during initial social work assessment, MOB endorsed stress from marriage, relationship with in-laws, and from [place] community. Intervention: Called [facility] ([facility]) today. Spoke with Alejandra Villegas in the intake department. Brief maternal and infant histories provided, as well as concerns regarding maternal depression, reason for social work consult, and MOB not following through with plan for care of emotional health needs, which leads this race and sports book writer to concerns for safety in the home. No other services requested or indicated. -PERRY Berg, OCCUPATIONAL HEALTH PHYSIOTHERAPIST
== END 2018-06-17 18:35 | disposition home or self-care (01) | DRG 807 ==
LOC: WPOUT 04:24
PROVIDERS: Admitting Provider Obstetrics & Gynecology; Family Provider Family Medicine; PCP Family Medicine; Referring Provider Obstetrics & Gynecology; Visit Provider Obstetrics & Gynecology
DX: O99.824 Streptococcus B carrier state complicating childbirth (principal); Z37.0 Single live birth; O62.3 Precipitate labor; O99.284 Endocrine, nutritional and metabolic diseases complicating childbirth; E03.9 Hypothyroidism, unspecified; O99.344 Other mental disorders complicating childbirth; F32.9 Major depressive disorder, single episode, unspecified; F41.9 Anxiety disorder, unspecified; Z79.899 Other long term (current) drug therapy; Z3A.39 39 weeks gestation of pregnancy
CPT/HCPCS: 59025; 59050; 80053; 84439; 84443; 85025; 85461; 86850; 86900; 90384; 99218; J7120; G0378; J2405; J2790

== ENCOUNTER → 2020-01-15 13:59 | Outpatient (CLI) | payer BC, SELFPAY ==
[2018-07-30 11:29] VITALS: BMI 28.6
[2020-01-15 15:07] LABS: hCG Titer Quant., Serum 7319 mIU/mL (1-3)
== END ==
PROVIDERS: PCP Family Medicine; Referring Provider Obstetrics & Gynecology; Visit Provider Obstetrics & Gynecology
DX: N91.2 Amenorrhea, unspecified (principal)
CPT/HCPCS: 36415; 84702

== ENCOUNTER → 2020-02-03 09:18 | Outpatient (CLI) | payer BC, SELFPAY ==
[2018-07-30 11:29] VITALS: BMI 28.6
--- NOTE | 2020-02-03 09:19 | US_ITS ---
STUDY: FIRST TRIMESTER OBSTETRICAL ULTRASOUND REASON FOR EXAM: Female, 35 years old DATING LMP: 11/07/2019 TECHNIQUE: TECHNICAL QUALITY: Adequate. PRIOR ULTRASOUND: None. FINDINGS: There is visualization of a single gestational sac in a normal intrauterine position. The mean sac diameter (MSD) measures 2.86 cm, indicating an estimated gestational age (EGA) of 8 weeks, 0 days. The gestational sac shape is within normal limits. There is small subchorionic hemorrhage measures 2.2 x 1.9 x 0.4 cm. There is a visualized yolk sac. The yolk sac measures 4.6 mm. The placenta is non-visualized. There is visualization of a live embryo. The crown-rump length (CRL) measures 1.74, indicating an estimated gestational age (EGA) of 8 weeks, 0 days. There is demonstrated cardiac activity with a heart rate of 169 bpm. The estimated gestation age (EGA) by LMP is 12 weeks, 4 days. The estimated date of delivery (JANKI) by LMP is 08/13/20. The estimated gestation age (EGA) by US is 8 weeks, 4 days. The estimated date of delivery (JANKI) by US is 09/14/2020. The uterus measures 10.8 x 6.9 x 6.5 cm. There is no demonstrated uterine fibroid. The cervix is closed. The right ovary measures 3.3 x 3.1 x 2.1 cm. There is 2.1 cm right ovarian cyst most likely represents a corpus luteum cyst There is no visualized right adnexal mass or complex lesion. The left ovary measures 2.5 x 2.2 x 1.2. There is no left ovarian cyst. There is no visualized left adnexal mass or complex lesion. There is no fluid in the cul de sac. US/Init OB < 14Wks US IMPRESSION: There is visualization of a live embryo. The crown-rump length (CRL) measures 1.74, indicating an estimated gestational age (EGA) of 8 weeks, 0 days. There is demonstrated cardiac activity with a heart rate of 169 bpm. Electronically Signed: Juan Anastasia, at 9:15 EDT Tel , Service support ,
== END ==
PROVIDERS: PCP Family Medicine; Referring Provider Obstetrics & Gynecology; Visit Provider Obstetrics & Gynecology
DX: N91.2 Amenorrhea, unspecified (principal)
CPT/HCPCS: 76801

== ENCOUNTER → 2020-02-05 | Outpatient (CLI) | payer BC, SELFPAY ==
[2020-02-05 14:22] VITALS: BMI 31.4
[2020-02-05 18:03] LABS: Amphetamine Urine VISTA NEGATIVE (<1000 ng/mL); Barbiturate Urine VISTA NEGATIVE (< 200 ng/mL); Benzodiazepine Urine VISTA NEGATIVE (< 200 ng/mL); Cocaine Urine VISTA NEGATIVE (< 300 ng/mL); Ecstacy Urine VISTA NEGATIVE (< 500 ng/mL); Methadone Urine VISTA NEGATIVE (< 300 ng/mL); PCP Urine VISTA NEGATIVE (< 25 ng/mL); THC Urine VISTA NEGATIVE (< 50 ng/mL); Vista UDS pH Range 6
[2020-02-10 03:06] LABS: Chlamydia By Nucleic Acid AMP Negative (Negative)
[2020-02-10 10:43] LABS: Gonococcus By Nucleic Acid AMP Negative (Negative)
== END | disposition home or self-care (01) ==
PROVIDERS: PCP Family Medicine; Referring Provider Obstetrics & Gynecology; Visit Provider Obstetrics & Gynecology
DX: O09.90 Supervision of high risk pregnancy, unspecified, unspecified trimester (principal)
CPT/HCPCS: 80307; 87086; 87491; 87591

== ENCOUNTER → 2020-04-01 11:35 | Outpatient (CLI) | payer BC, SELFPAY ==
[2020-04-01 10:13] VITALS: BMI 29.8
[2020-04-01 12:22] LABS: Absolute Lymphocyte Count 1.62 X10^3/uL (0.83-4.51); Absolute Neutrophil Count 6.1 X10^3/uL (2.0-7.7); Basophil# 0.02 X10^3/uL; Basophil% 0.2 % (0-1); Eosinophil# 0.19 X10^3/uL; Eosinophils% 2.2 % (0-5); Hematocrit 36.7 % (37-47); Hemoglobin 12.2 g/dL (12.0-15.0); Lymphocyte # 1.62 X10^3/ul (4.0); Lymphocyte % 19.1 % (19-41); Mean Corp Hgb Conc 33.2 g/dL (32-36); Mean Corpuscular Hgb 29.3 pg (27.0-32.0); Mean Platelet Vol. 9.4 fl (6.2-12.0); Monocyte# 0.55 X10^3/uL; Monocyte% 6.5 % (0-10); NRBC Flagged by Analyzer 0 % (0-5); Neutrophil # 6.06 X10^3/uL (2.7-7.7); Neutrophil % 71.4 % (47-70); Platelet Count 300 K/mm3 (150-450); RBC Distribution Width CV 13.7 % (11.6-14.6); RBC Distribution Width SD 44.4 fl (35.1-43.9); Red Blood Count 4.17 M/mm3 (4.2-5.4); White Blood Count 8.5 K/mm3 (4.4-11.0)
[2020-04-01 12:48] LABS: Amphetamine Urine VISTA NEGATIVE (<1000 ng/mL); Barbiturate Urine VISTA NEGATIVE (< 200 ng/mL); Benzodiazepine Urine VISTA NEGATIVE (< 200 ng/mL); Cocaine Urine VISTA NEGATIVE (< 300 ng/mL); Ecstacy Urine VISTA NEGATIVE (< 500 ng/mL); Methadone Urine VISTA NEGATIVE (< 300 ng/mL); PCP Urine VISTA NEGATIVE (< 25 ng/mL); THC Urine VISTA NEGATIVE (< 50 ng/mL); Vista UDS pH Range 6
[2020-04-01 13:24] LABS: HIV - WCH Non-Reactive (Nonreactive); Hepatitis B Surface Antigen Non-Reactive (Nonreactive); Hepatitis C Antibody Non-Reactive (Nonreactive); Rubella IgG 208.5 IU/mL
[2020-04-01 16:45] LABS: Chlamydia Trachomatis by PCR Negative (Negative); Neisserai gonorrhoeae by PCR Negative (Negative); Probe Check PASS; Sample Adequacy Control PASS; Specimen Processing Control PASS
[2020-04-08 03:02] LABS: Rapid Plasmin Reagin (RPR) NONREACTIVE (NONREACTIVE)
== END ==
PROVIDERS: PCP Family Medicine; Referring Provider Obstetrics & Gynecology; Visit Provider Obstetrics & Gynecology
DX: O09.90 Supervision of high risk pregnancy, unspecified, unspecified trimester (principal); Z3A.00 Weeks of gestation of pregnancy not specified
CPT/HCPCS: 36415; 80307; 85025; 86592; 86703; 86762; 86803; 86850; 86900; 86901; 87086; 87088; 87340; 87491; 87591

== ENCOUNTER → 2020-04-19 | Outpatient (CLI) | payer BC, SELFPAY ==
[2020-04-19 10:00] VITALS: BMI 29.8
== END | disposition home or self-care (01) ==
LOC: LABSPEC 14:24
PROVIDERS: PCP Family Medicine; Referring Provider Nurse Practitioner Women's Health; Visit Provider Nurse Practitioner Women's Health
DX: R30.0 Dysuria (principal)
CPT/HCPCS: 87086; 87088

== ENCOUNTER 2020-05-18 16:47 | Outpatient (CLI) | payer BC, SELFPAY ==
[2020-04-29 13:52] VITALS: BMI 29.8
[2020-05-18 17:00] VITALS: BMI 30.4
[2020-05-18 17:13] VITALS: TEMP 37.2; O2SAT 97
[2020-05-18 17:20] VITALS: BP 116/65; PULSE 101
--- NOTE | 2020-05-20 08:12 | OB.TRI.PN ---
Progress Notes Date of Service: 05/18/20 Progress Note: fht present rhogam given s/p abdominal trauma Laboratory Studies: Laboratory Tests 05/18/20 05/18/20 Range/Units 17:53 17:53 Blood Type O NEGATIVE Antibody Screen NEGATIVE Screen NEGATIVE (NEGATIVE) Baby's Blood Type TNP Baby's JORDAN TNP Crossmatch See Detail - Problem List (1) Abdominal trauma Status: Acute Comment: rhogam given 05/18 Multi Select Codes - Urinary/Genital Urinary/Genital CPT Codes: No Charge
== END 2020-05-18 19:00 | disposition home or self-care (01) ==
LOC: WPOUT 16:55 → OBT 16:55
PROVIDERS: PCP Family Medicine; Visit Provider Obstetrics & Gynecology
DX: O26.899 Other specified pregnancy related conditions, unspecified trimester (principal); S39.91XA Unspecified injury of abdomen, initial encounter; Z3A.00 Weeks of gestation of pregnancy not specified
CPT/HCPCS: 36415; 59025; 59050; 85461; 86850; 86900; 86901; 86920; 86922; 90384; 96372; 99218; G0378; J2790

== ENCOUNTER → 2020-06-24 12:45 | Outpatient (CLI) | payer BC, SELFPAY ==
[2020-05-27 12:00] VITALS: BMI 30.9
[2020-06-24 13:18] LABS: Absolute Neutrophil Count 6.4 X10^3/uL (2.0-7.7); Basophil# 0.02 X10^3/uL; Basophil% 0.2 % (0-1); Eosinophil# 0.09 X10^3/uL; Hematocrit 34.2 % (37-47); Hemoglobin 11.4 g/dL (12.0-15.0); Lymphocyte % 17.3 % (19-41); Mean Corp Hgb Conc 33.3 g/dL (32-36); Mean Corpuscular Hgb 29.4 pg (27.0-32.0); Mean Corpuscular Volume 88.1 fL (81-99); Mean Platelet Vol. 9.2 fl (6.2-12.0); Monocyte# 0.53 X10^3/uL; Monocyte% 6.1 % (0-10); NRBC Flagged by Analyzer 0 % (0-5); Neutrophil % 73.8 % (47-70); Platelet Count 263 K/mm3 (150-450); RBC Distribution Width CV 13.7 % (11.6-14.6); RBC Distribution Width SD 44.2 fl (35.1-43.9); Red Blood Count 3.88 M/mm3 (4.2-5.4); White Blood Count 8.7 K/mm3 (4.4-11.0)
[2020-06-24 13:34] LABS: Glucose Challenge Gest 1H 50g 193 mg/dL (70-140); Thyroid Stim Hormone (TSH) 1.04 uIU/mL (0.358-3.74)
== END ==
PROVIDERS: PCP Family Medicine; Referring Provider Obstetrics & Gynecology; Visit Provider Obstetrics & Gynecology
DX: O09.90 Supervision of high risk pregnancy, unspecified, unspecified trimester (principal); O99.280 Endocrine, nutritional and metabolic diseases complicating pregnancy, unspecified trimester; E03.9 Hypothyroidism, unspecified; Z13.1 Encounter for screening for diabetes mellitus; Z3A.00 Weeks of gestation of pregnancy not specified
CPT/HCPCS: 36415; 82950; 84443; 85025

== ENCOUNTER → 2020-07-01 07:05 | Outpatient (CLI) | payer BC, SELFPAY ==
[2020-06-24 13:04] VITALS: BMI 31.2
[2020-07-01 08:57] LABS: Glucose GTT-Gestation. Fasting 79 mg/dL (<105)
[2020-07-01 09:00] LABS: Glucose GTT-Gestational 1 Hr 235 mg/dL (<190)
[2020-07-01 11:28] LABS: Glucose GTT-Gestational 2 Hr 183 mg/dL (<165)
[2020-07-01 11:48] LABS: Glucose GTT-Gestational 3 Hr 66 L (<145)
== END ==
PROVIDERS: Nurse Practitioner Women's Health; PCP Family Medicine; Referring Provider Obstetrics & Gynecology; Visit Provider Obstetrics & Gynecology
DX: O99.810 Abnormal glucose complicating pregnancy (principal); Z13.1 Encounter for screening for diabetes mellitus
CPT/HCPCS: 36415; 82951; 82952

== ENCOUNTER → 2020-07-06 17:13 | Outpatient (CLI) | payer BC, SELFPAY ==
[2020-06-24 13:04] VITALS: BMI 31.2
== END ==
PROVIDERS: PCP Family Medicine; Referring Provider Obstetrics & Gynecology; Visit Provider Obstetrics & Gynecology
DX: Z20.822 Contact with and (suspected) exposure to COVID-19 (principal)
CPT/HCPCS: 87635; C9803; U0003

== ENCOUNTER 2020-07-12 13:30 | Outpatient (RCR) | payer BC, SELFPAY ==
[2020-06-24 13:04] VITALS: BMI 31.2
[2020-07-07 13:09] VITALS: BMI 31.2
== END 2020-07-18 23:59 ==
LOC: DC 13:30
PROVIDERS: PCP Family Medicine; Visit Provider Nurse Practitioner Women's Health
DX: Z71.3 Dietary counseling and surveillance (principal); O24.419 Gestational diabetes mellitus in pregnancy, unspecified control; Z3A.00 Weeks of gestation of pregnancy not specified
CPT/HCPCS: 97802; G0108

== ENCOUNTER 2020-08-03 14:30 | Outpatient (RCR) | payer BC, SELFPAY ==
[2020-07-07 13:09] VITALS: BMI 31.2
== END 2020-08-15 23:59 ==
LOC: DC 14:30
PROVIDERS: PCP Family Medicine; Visit Provider Nurse Practitioner Women's Health
DX: Z71.3 Dietary counseling and surveillance (principal); O24.419 Gestational diabetes mellitus in pregnancy, unspecified control; Z3A.00 Weeks of gestation of pregnancy not specified
CPT/HCPCS: 97803

== ENCOUNTER 2020-08-16 13:10 | Outpatient (RCR) | payer BC, SELFPAY ==
[2020-08-05 14:14] VITALS: BMI 29.9
== END 2020-08-31 23:59 | disposition home or self-care (01) ==
LOC: DC 13:10
PROVIDERS: PCP Family Medicine; Visit Provider Nurse Practitioner Women's Health
DX: O24.419 Gestational diabetes mellitus in pregnancy, unspecified control (principal); Z3A.00 Weeks of gestation of pregnancy not specified

== ENCOUNTER → 2020-08-19 | Outpatient (CLI) | payer BC, SELFPAY ==
[2020-08-19 14:47] VITALS: BMI 30.9
== END | disposition home or self-care (01) ==
LOC: LABSPEC 18:10
PROVIDERS: PCP Family Medicine; Visit Provider Obstetrics & Gynecology
DX: Z34.90 Encounter for supervision of normal pregnancy, unspecified, unspecified trimester (principal)
CPT/HCPCS: 87081

== ENCOUNTER → 2020-08-26 15:19 | Outpatient (CLI) | payer BC, SELFPAY ==
[2020-08-26 14:57] VITALS: BMI 30.2
== END ==
PROVIDERS: PCP Family Medicine; Referring Provider Obstetrics & Gynecology; Visit Provider Obstetrics & Gynecology
DX: O26.899 Other specified pregnancy related conditions, unspecified trimester (principal); Z67.91 Unspecified blood type, Rh negative
CPT/HCPCS: 36415; 86850; 86900; 86901

== ENCOUNTER 2020-09-09 17:28 | Inpatient (IN) | payer BC, SELFPAY ==
[2020-06-24 13:04] VITALS: BMI 31.2
[2020-09-03 11:51] VITALS: BMI 29.7
[2020-09-09 15:26] VITALS: BP 101/57; PULSE 101
[2020-09-09 15:27] VITALS: TEMP 36.7
[2020-09-09 17:17] VITALS: BMI 29.8
[2020-09-09 18:01] LABS: Bedside Glucose 83 mg/dL (70-110)
[2020-09-09] MEDS: Lactated Ringers 1,000 ML 50 ML IV (18:45)
[2020-09-09 19:04] LABS: Absolute Lymphocyte Count 1.79 X10^3/uL (0.83-4.51); Absolute Neutrophil Count 5.1 X10^3/uL (2.0-7.7); Basophil# 0.01 X10^3/uL; Basophil% 0.1 % (0-1); Eosinophil# 0.09 X10^3/uL; Eosinophils% 1.2 % (0-5); Hematocrit 34.2 % (37-47); Hemoglobin 11.4 g/dL (12.0-15.0); Lymphocyte # 1.79 X10^3/ul (4.0); Lymphocyte % 23.5 % (19-41); Mean Corp Hgb Conc 33.3 g/dL (32-36); Mean Corpuscular Hgb 27.9 pg (27.0-32.0); Mean Corpuscular Volume 83.6 fL (81-99); Mean Platelet Vol. 10.1 fl (6.2-12.0); Monocyte# 0.58 X10^3/uL; Monocyte% 7.6 % (0-10); NRBC Flagged by Analyzer 0 % (0-5); Neutrophil % 66.8 % (47-70); Platelet Count 276 K/mm3 (150-450); RBC Distribution Width SD 41.9 fl (35.1-43.9); Red Blood Count 4.09 M/mm3 (4.2-5.4); White Blood Count 7.6 K/mm3 (4.4-11.0)
[2020-09-09 19:15] LABS: Fibrinogen 445 mg/dl (203-444)
[2020-09-09] MEDS: 0.9% Normal Saline Single 100 ML IV.SOLN. INTRA-UTER (19:59)
[2020-09-09] MEDS: Oxytocin 30 units/NS 500 ml 30 UNITS/500 ML IV.SOLN IV (20:19)
[2020-09-09 20:24] VITALS: BP 115/72; PULSE 94; TEMP 36.8; O2SAT 93; O2SAT 98
[2020-09-09 21:05] VITALS: BP 120/75; PULSE 88; O2SAT 98
[2020-09-09 22:04] VITALS: BP 116/73; PULSE 79
[2020-09-09 22:10] LABS: Bedside Glucose 72 mg/dL (70-110)
--- NOTE | 2020-09-09 22:38 | HP.PCM_ITS ---
- Problem List (1) Late deceleration of heart rate Status: Acute (2) 36 weeks gestation of Status: Acute Comment: electronic covid test ordered 08/20/20 (scheduled for 09/09/20 at 1450) (3) Depression affecting Status: Acute Comment: counseling, been on lexapro. switched to prozac with no benefit, now back on 20mg lexapro, add vistaril. if no control recommend psychiatry evaluation (4) Gestational diabetes Status: Acute Qualifiers: Comment: endocrine consult, diet controlled. (5) Hypothyroid Status: Acute Qualifiers: Comment: Started levothyroxine 10/18/17 , check tsh every trimester (6) Status: Acute Qualifiers: Comment: genetic, carrier, ntd screening declined. anatomy/growth echo in 4 weeks, FU growth echo nl (7) Rh negative status during Status: Acute Qualifiers: Comment: rhogam prn and 28 weeks. Given 05/18. Repeat 08/10 (8) Supervision of high-risk Status: Acute Qualifiers: Comment: PRR JANKI 09/16/20 PC Rusty Jamesty Zacarias History and Physical Date of Admission: 09/09/20 Intake Vital Signs 09/03/20 Height 5 ft 4 in 09/03/20 Weight: 173 lb 8 oz 09/03/20 BMI 29.7 09/03/20 BP 118/78 Intake Visit Reasons: 38 WK OB Director Of Exhibit Development Required: No Is patient in pain?: No Allergies sertraline [From Zoloft] Allergy (Verified 09/03/20 11:52) Other alcohol Adverse Reaction (Verified 09/03/20 11:52) Other Medications ascorbic acid (vitamin C) 500 mg capsule 500 mg PO DAILY 10/18/17 [History Confirmed 09/03/20] cholecalciferol (vitamin D3) 125 mcg (5,000 unit) capsule 125 mcg PO QODAY 02/05/20 [History Confirmed 09/03/20] cyanocobalamin (vitamin B-12) 500 mcg lozenges 1,000 mcg PO DAILY 02/05/20 [History Confirmed 09/03/20] multivitamin with minerals 1 tab PO ONCE 02/05/20 [History Confirmed 09/03/20] escitalopram oxalate 20 mg tablet 20 mg PO DAILY #30 tab 04/29/20 [Rx Confirmed 09/03/20] hydroxyzine pamoate 50 mg capsule 50 mg PO TID-QID PRN #60 cap 04/29/20 [Rx Confirmed 09/03/20] Pnv No.103/Folic/Om3s/Fish Oil [ Gummies] 2 gum PO DAILY 05/18/20 [ History Confirmed 09/03/20] calcium carbonate 600 mg calcium (1,500 mg) tablet 600 mg PO DAILY 06/24/20 [History Confirmed 09/03/20] cranberry 400 mg capsule 400 mg PO DAILY 06/24/20 [History Confirmed 09/03/20] elderberry fruit 200 mg capsule mg PO 06/24/20 [History Confirmed 09/03/20] xymqchdi-djq-lyom-FA-Ca carb-vit K 18 mg iron-400 mcg-500 mg tablet 1 tab PO DAILY 06/24/20 [History Confirmed 09/03/20] ondansetron HCl 4 mg tablet 4 mg PO Q8H PRN 06/24/20 [History Confirmed 09/03/20] blood sugar diagnostic See Rx Instructions .ROUTE .MEDSUPPLY #100 ea 07/01/20 [Rx Confirmed 09/03/20] blood-glucose meter See Rx Instructions .ROUTE .MEDSUPPLY #1 ea 07/01/20 [Rx Confirmed 09/03/20] levothyroxine 125 mcg tablet 125 mcg PO DAILY #1 tab 07/27/20 [Rx Confirmed 09/03/20] Last Menstral Period: 02/05/20 Zika: Zika virus screening: Negative : No PFSH PFSH Medical History Anxiety with depression (Acute) Gestational diabetes (Acute) Hypothyroidism (Chronic) Family History Unknown Diabetes Uncle Diabetes Social History (Updated 09/03/20 @ 12:[address] Belinda Mckeon MD) Smoking Status: Never smoker alcohol intake: never substance use type: does not use caffeine: Yes what type of physical activity do you participate in: none seatbelt use: always do you feel safe at home: Yes additional social history: Zacarias [facility] Chiropractic Pregancy History 3 Elective abortions Hx Para 2 Spontaneous abortions Hx # Term Pregnancies Ectopic pregnancies Hx # Pregnancies Multiple births # of living children Past Pregnancies Del. Date Name GA/Weeks Outcome Route Bth Weight Infant Gen Labor Lgth Anesthesia Del Locatn Provider FOB Unknown 2016 Erika 40 live - full term 7lbs 15oz Female epidural [facility] Eliot Adames 06/16/18 Serenity 39 live - full term 7lbs 10oz Femal e 8 none [facility] Delivery Date: perineal tear 2nd degree MelchorKiesha Delivery Date: 06/16/18 No notes to display HPI 38 WK OB: Details: ELIEL GARCIA is a 35 year old who presents at 39 weeks status post fall. Patient tripped and fell onto her knees and hands denies any vaginal bleeding but is had some contractions since. She was noted to have a few nonrecurring late decelerations with several contractions and therefore the decision was made to keep and deliver due to gestational age and risk of co morbidity. OB Visit JANKI Calculator Estimated Delivery Date Method Current WG Current Estimate 09/16/20 Ultrasound #1 38w 1d Expected Delivery Route/Plan Labor Preferences- CB/BF classes: no labor support person: Zacarias labor intervention preferences: pain management options preferred: natural cut cord/dad catch: yes : yes PP control planned: IUD discussed possible routes of delivery and associated risks: [] special requests: [] Specific Issue/Plans flu vaccine: no tdap vaccine: given rhogam: given 05/18 - repeat in 12w LARC form signed: yes movement and labor precautions reviewed. Problem list reviewed and updated with the most current plan of care details and appropriate orders placed. Relevant counseling for the gestational age provided. Continue routine care and follow up unless otherwise noted in visit notes/problem list details Initial Weight: 180 lb Date EGA Weight BP Urine Prot Glucose FHR FuHt Pres Dilation Effaced St Visit Note 02/05/20 8w 0d 183 lb (+3 lb) 120/80 180 SM- CRL- 8w0d today 03/04/20 12w 0d 177 lb (-3 lb) 122/86 Negative Negative 160 SM- no vb cramping, struggling wth emotional symptoms. she has been out of her medication and is open to restarting medication at this time. 04/01/20 16w 0d 174 lb (-6 lb) 118/82 Negative Negative 145 SM- no vb lof increased prozac, discussed kallergy meds. 04/29/20 20w 0d 174 lb (-6 lb) Negative Negative 145 SM- see problem list update. switched back to lexapro add vistaril. no SI HI. no vb lof good fm no regular ctx 05/27/20 24w 0d 180 lb 4 oz (+4 oz) 108/78 Negative Negative 145 24 GP - no cramping, LOF, VB, GCT next visit. Discussed COVID precautions at delivery. 06/24/20 28w 0d 182 lb 2 oz (+2 lb 2 oz) 118/76 Trace Negative 154 28 MH-No VB, LOF. Good FM. 28 wk labs and TSH pending. Larc. Considering TDAP 07/22/20 32w 0d 179 lb (-16 oz) 101/65 Negative Negative 145 32 SM- no vb lof good fm no regular ctx discussed GDMA1, seeing endocrine today. 08/05/20 34w 0d 177 lb (-3 lb) 104/60 Trace Negative 150 34 GP - no LOF, VB, ctx. Reports movement decreased over last few days. NST done in office. 08/19/20 36w 0d 180 lb (+0 oz) 120/82 Negative Negative 145 36 Cephalic 1 -4 SM- no vb lof good fm no regular ctx gbs done 08/26/20 37w 0d 176 lb (-4 lb) 99/68 145 37 Cephalic 1 SM- no vb lof good fm no regular ctx BS well controlled 09/03/20 38w 1d 173 lb 8 oz (-6 lb 8 oz) 118/78 Negative Negative 140 38 Cephalic 1 50 -3 GP - no LOF, VB, DFM, ctx . BGTs remain controlled with diet. Discussed IOL at 40 weeks if no spontaneous labor. ACOG Second Trimester Second Trimester: Signs and Symptoms of Labor, Selecting a care provider, Reproductive Life Planning, Care Planning, Depression/Anxiety and Intimate Partner Violence; discussed Tobacco Cessation Diagnostics Diagnostics Diagnostics Blood Type O NEGATIVE 08/26/20 Antibody Screen NEGATIVE 08/26/20 Gest Glucose Tolerance MG/DL 07/01/20 Details: HIV: Urine Culture: Sequential Screen: NIPT Screen: ROS Const Reports system reviewed and no additional complaints, except as docu Eyes Reports system reviewed and no additional complaints, except as docu ENT Reports system reviewed and no additional complaints, except as docu Card Reports system reviewed and no additional complaints, except as docu Resp Reports system reviewed and no additional complaints, except as docu GI Denies heartburn, Denies nausea, Denies vomiting Denies abnormal vaginal bleeding, Denies painful urination, Denies pelvic pain, Denies vaginal discharge, Denies vaginal odor, Denies vaginal itching Musc Reports system reviewed and no additional complaints, except as docu Skin/Breast Reports system reviewed and no additional complaints, except as docu Neuro Yes system reviewed and no additional complaints, except as docu Psych Reports system reviewed and no additional complaints, except as docu Endo Reports system reviewed and no additional complaints, except as docu Exam Const General: cooperative, healthy appearing, comfortable, no acute distress, well developed, well groomed Nutritional Appearance: average body habitus, well nourished Orientation: alert, awake, oriented x3 HENMT Head: normal to inspection, normocephalic, atraumatic Eyes Pupils: PERRL, accommodation normal Resp Effort & Inspection: normal respiratory effort, able to speak in complete sentences, symmetric chest movement Cardio Rate: regular rate GI Palpation: soft, no guarding, no masses, nontender Skin General: no rashes or lesions noted, elasticity normal, turgor normal Neuro General: alert, awake, oriented x3 Cranial Nerves: CN's II-XI intact bilaterally, sense of smell intact, PERRL, accommodation normal, EOM intact bilaterally Speech: speech normal Gait: normal gait Psych Appearance: grossly normal, well kempt Mental Status: mental status grossly normal Mood: congruent mood Affect: normal affect Speech and Movement: speech and movement normal Attitude: cooperative Thought Process: normal Thought Content: normal Judgment: judgment good Results POC Urinalysis 2 Dip (Clinic) Office Urine Glucose Negative Last Edit by Evelyn Mcdonald on 09/03/20 12:10 Office Urine Protein Negative Last Edit by Evelyn Mcdonald on 09/03/20 12:10 Assessment & Plan Problems 1. 36 weeks gestation of Z3A.36 electronic covid test ordered 08/20/20 (scheduled for 09/09/20 at 1450) 2. Diet controlled gestational diabetes mellitus (GDM) in third trimester O24.410 endocrine consult, diet controlled. 3. Rh negative status during in third trimester O26.893 rhogam prn and 28 weeks. Given 05/18. Repeat 08/10 4. Supervision of high risk in third trimester O09.93 PRR JANKI 09/16/20 SHANNAN James, Serenity Zacarias 5. Depression affecting O99.340; F32.9 counseling, been on lexapro. switched to prozac with no benefit, now back on 20mg lexapro, add vistaril. if no control recommend psychiatry evaluation 6. 38 weeks gestation of Z3A.38 genetic, carrier, ntd screening declined. anatomy/growth echo in 4 weeks, FU growth echo nl 7. Acquired hypothyroidism E03.9 Started levothyroxine 10/18/17 , check tsh every trimester Patient presents for evaluation status post fall, due to intermittent late decelerations recommend IOL, plan management for with Piedra bulb and Pitocin. Pain management: Open to epidural. GBS [negative]. Management of any complications: GDM A1 plan blood sugar monitoring throughout labor I have reviewed the [facility] and made any clinically relevant updates. Orders Orders: POC Urinalysis 2 Dip (Clinic) Today Coding Level of Care Code OB Routine Diagnoses 36 weeks gestation of Z3A.36 Diet controlled gestational diabetes mellitus (GDM) in third trimester O24.410 ??Gestational diabetes mellitus control: diet-controlled ??Trimester: third trimester Rh negative status during in third trimester O26.893 ??Trimester: third trimester Supervision of high risk in third trimester O09.93 ??Trimester: third trimester Depression affecting O99.340; F32.9 38 weeks gestation of Z3A.38 ??Weeks of gestation: 38 weeks Acquired hypothyroidism E03.9 ??Hypothyroidism type: acquired
[2020-09-09 23:00] VITALS: BP 118/78; PULSE 76; TEMP 36.3
[2020-09-09] MEDS: Ondansetron 4 MG/2 ML Vial IV (23:19)
[2020-09-10] VITALS (28 sets, daily range): BP systolic 105–136; BP diastolic 57–94; PULSE 71–173; RESP 14–16; TEMP 36.2–36.7; O2SAT 83–100
--- NOTE | 2020-09-10 00:23 | PCM.PN.BLA ---
Progress Note arom light meconium fht 140 mod variabiltiy reactive no decels continue pit per protocol STROKE Vital Signs/Narrative: Vital Signs Temp Pulse BP Pulse Ox 09/10/20 00:01 71 111/72 09/10/20 00:00 98 09/09/20 23:00 97.4 F L 76 118/78 09/09/20 22:04 79 116/73 09/09/20 21:05 88 120/75 98 09/09/20 20:24 98.3 F 94 115/72 98
[2020-09-10] MEDS: Lactated Ringers 500 ML 999 ML IV (00:25)
[2020-09-10] MEDS: fentaNYL-bupivacaine (epidural) 100 ML BAG EPIDURAL (01:23)
[2020-09-10] MEDS: Oxytocin 30 units/NS 500 ml 30 UNITS/500 ML IV.SOLN 334 UNITS IV (01:43)
--- NOTE | 2020-09-10 02:22 | OP.PCM_ITS ---
Problem List (1) Late deceleration of heart rate Status: Acute (2) 36 weeks gestation of Status: Acute Comment: electronic covid test ordered 08/20/20 (scheduled for 09/09/20 at 1450) (3) Depression affecting Status: Acute Comment: counseling, been on lexapro. switched to prozac with no benefit, now back on 20mg lexapro, add vistaril. if no control recommend psychiatry evaluation (4) Gestational diabetes Status: Acute Qualifiers: Comment: endocrine consult, diet controlled. (5) Hypothyroid Status: Acute Qualifiers: Comment: Started levothyroxine 10/18/17 , check tsh every trimester (6) Status: Acute Qualifiers: Comment: genetic, carrier, ntd screening declined. anatomy/growth echo in 4 weeks, FU growth echo nl (7) Rh negative status during Status: Acute Qualifiers: Comment: rhogam prn and 28 weeks. Given 05/18. Repeat 08/10 (8) Supervision of high-risk Status: Acute Qualifiers: Comment: PRR JANKI 09/16/20 SHANNAN James, Serenity Miles Vaginal Delivery Maternal Presentation: Medically Indicated Induction Induction of labor secondary to heart rate decelerations, GDM A1 Method of Induction: Pitocin, Piedra Bulb Amniotic Membrane Rupture Type: Artificial Amniotic Fluid Description: Lightly stained meconium Final JANKI: 09/16/20 Gestational age: 39 Weeks and 1 Days Date of Procedure: 09/10/20 Pre-Operative Diagnosis: Induction of labor heart rate deceleration Post-Operative Diagnosis: Same Surgery/ Procedure Performed: Spontaneous Vaginal Delivery Type of Anesthesia: Epidural Description of Procedure: Patient began pushing and delivered the head in the JEFFREY presentation. The head was delivered atraumatically and a loose nuchal cord ?1 was identified and easily reduced over the infant's head. The anterior and posterior shoulders delivered without complication followed by the rest of the and the was placed on the maternal abdomen. Delayed cord clamping was employed for approximately 60 seconds. Cord was clamped and cut and gentle traction was applied to the cord and the placenta delivered spontaneously immediately following it was noted to be intact with three-vessel cord. The perineum and vagina were inspected and noted to have no laceration. EBL was 200 cc. Patient and tolerated delivery well. Presentation: JEFFREY Placental Delivery Description: Spontaneous Placenta Disposition: [facility] Cord Vessel Description: 3 Vessels Cord Entanglement: Around neck x 1, loose Estimated Blood Loss: 200 A gender: Female Episiotomy Description: None Laceration: None Medications given after delivery: IV Pitocin Complications: None Multi Select Codes - Urinary/Genital Urinary/Genital CPT Codes: 17378 Vaginal Delivery [facility]
--- NOTE | 2020-09-10 02:24 | DCINST_ITS ---
Discharge Diet: No Restrictions Discharge Activity: Return to Normal Activity, May not drive while taking narcotic pain medications., May Shower May resume sexual activity in: 4-6 weeks Call your doctor if your incision/area has: Continuous Slow Oozing, Sudden Increased Bleeding, Increased Pain/ Swelling, Increased Redness, Foul Smelling Discharge Additional Instructions: If you experience any of the following, contact your healthcare provider. * Bleeding that soaks a pad every hour for 2 hours * Fever 100.4 or higher * Unrelieved incision or abdominal pain * Swelling, redness, discharge or bleeding from your incision or episiotomy site * Your incision begins to separate * Problems urinating (including inability to urinate or burning while urinating). * Visual changes * Severe headache * Flu-like symptoms * Pain or redness in one of both of your breasts * Pain, warmth, tenderness or swelling in your legs, especially the calf area * Frequent nausea and vomiting * Symptoms of depression or anxiety If you experience any of the following, call 911 or go to the nearest Emergency Room. * Chest pain * Problems breathing * Seizure activity * Partial or complete paralysis of a body part, slurred speech, weakness or drooping of the face, or a sudden inability to walk or hold your balance Allergies/Adverse Reactions: Allergies sertraline [From Zoloft] Allergy (Verified 09/09/20 19:20) Other dizziness, fainting Medications to take at Discharge ascorbic acid (vitamin C) 500 mg capsule 500 mg PO DAILY 10/18/17 cholecalciferol (vitamin D3) 125 mcg (5,000 unit) capsule 125 mcg PO QODAY 02/05/20 cyanocobalamin (vitamin B-12) 500 mcg lozenges 1,000 mcg PO DAILY 02/05/20 escitalopram oxalate 20 mg tablet 20 mg PO DAILY #30 tab 04/29/20 hydroxyzine pamoate 50 mg capsule 50 mg PO TID-QID PRN #60 cap 04/29/20 Pnv No.103/Folic/Om3s/Fish Oil [ Gummies] 2 gum PO DAILY 05/18/20 calcium carbonate 600 mg calcium (1,500 mg) tablet 600 mg PO DAILY 06/24/20 cranberry 400 mg capsule 400 mg PO DAILY 06/24/20 elderberry fruit 200 mg capsule 1 tab PO DAILY 06/24/20 blood sugar diagnostic See Rx Instructions .ROUTE .MEDSUPPLY #100 ea 07/01/20 blood-glucose meter See Rx Instructions .ROUTE .MEDSUPPLY #1 ea 07/01/20 levothyroxine 125 mcg tablet 125 mcg PO DAILY #1 tab 07/27/20 Please Follow Up With: Shruthi Mccabe MD - [phone] When: Call to make an appointment with your doctor in 6 weeks. If you had elevated Blood pressure or 4th degree laceration you will need to be seen in 2 weeks. Primary Care Physician: Landon Bourgeois MD [Primary Care Provider] - Test Results: Test results from this visit will be discussed in further detail at your follow- up appointment, if applicable.
[2020-09-10 02:36] LABS: Bedside Glucose 113 mg/dL (70-110)
[2020-09-10] MEDS: Methylergonovine 0.2 MG/ML Ampul IM (03:07)
[2020-09-10] MEDS: Levothyroxine 125 MCG Tablet PO (05:24)
[2020-09-10 09:30] LABS: Bedside Glucose 108 mg/dL (70-110)
[2020-09-10] MEDS: Escitalopram Oxalate 20 MG Tablet PO (10:55)
[2020-09-10] MEDS: Naproxen 250 MG Tablet 500 MG PO (11:02)
[2020-09-10] MEDS: Acetaminophen 500 MG Tablet 1000 MG PO (18:18)
[2020-09-11] VITALS (7 sets, daily range): BP systolic 95–115; BP diastolic 55–72; PULSE 71–87; RESP 16; TEMP 36.1–36.2; O2SAT 97–99
[2020-09-11 05:16] LABS: Bedside Glucose 80 mg/dL (70-110)
[2020-09-11] MEDS: Levothyroxine 125 MCG Tablet PO (06:05)
[2020-09-11] MEDS: Acetaminophen 500 MG Tablet 1000 MG PO (07:18)
[2020-09-11 07:46] LABS: Kleihauer-Betke Negative
--- NOTE | 2020-09-11 09:24 | PCM.PN.OB ---
Patient Problems: Active and Suspected Problems (Last Reviewed 09/03/20 @ 11:51 by Evelyn Mcdonald) Gestational diabetes (Acute) endocrine consult, diet controlled. Rh negative status during (Acute) rhogam prn and 28 weeks. Given 05/18. Repeat 08/10 Depression affecting (Acute) counseling, been on lexapro. switched to prozac with no benefit, now back on 20mg lexapro, add vistaril. if no control recommend psychiatry evaluation Hypothyroid (Acute) Started levothyroxine 10/18/17 , check tsh every trimester Subjective: Patient doing well without complaints. Tolerating PO. Ambulating and voiding without difficulty. Breast feeding well. Denies chest pain, shortness of breath, calf pain/swelling, fevers, chills, lightheadedness. - Physical Exam Vitals/I&O's: Vital Signs Temp Pulse Resp BP Pulse Ox 97 F L 75 16 115/55 L 97 09/11/20 08:21 09/11/20 08:22 09/11/20 08:21 09/11/20 08:22 09/11/20 08:21 Oxygen Delivery Method Room Air Weight: 174 lb Body Mass Index (BMI) 29.8 Intake and Output for Last 24 Hours 09/09/20 09/10/20 09/11/20 23:59 23:59 23:59 Intake Total 10.74 / 10.74 1441.60 / 1441.60 Output Total 1400 / 1400 Balance 10.74 / 10.74 41.60 / 41.60 General: Alert, Oriented x3, Cooperative, No apparent distress, Well developed, Well nourished HEENT: Atraumatic, PERRLA, EOMI, Normocephalic Neck: Supple, No JVD Lungs: Normal air movement Cardiovascular: Regular rate Abdomen: Soft, Non Tender, Non-Distended Extremities: No edema, No Calf Tenderness Neurological: Cranial nerves II-XII grossly intact, Neuro grossly intact Psych/Mental Status: Normal Affect, Appropriate Microbiology Past 72 Hours 09/09/20 19:02 Mucosa - Nose SARS-CoV-2 Antigen (Rapid) - Final Laboratory Results 09/09/20 18:45: Antibody Screen STRATEGY DIRECTOR, Antibody Identification Cancelled 09/09/20 18:45: Antibody Identification Cancelled 09/09/20 : Kleihauer-Betke F Hgb Negative 09/10/20 09:26: POC Glucose 108 09/11/20 05:10: POC Glucose 80 Current Medications Acetaminophen (Acetaminophen 500 Mg Tablet) 1,000 mg PO Q8H PRN PRN PRN Reason: Pain Score 1-3 Last Admin: 09/11/20 07:18 Dose: 1,000 mg Documented by: Bisacodyl (Bisacodyl 10 Mg Suppository) 10 mg RC UD PRN PRN Reason: If no BM Dextrose (Dextrose 50%-Water 25 Gm/50 Ml Disp.Syrin) 0 gm IV X1 PRN; Protocol PRN Reason: Hypoglycemia Dibucaine (Dibucaine 30 Gm Tube) 1 applic TOPICAL TID PRN PRN; Protocol PRN Reason: Discomfort Escitalopram Oxalate (Escitalopram Oxalate 20 Mg Tablet) 20 mg PO DAILY [facility] Last Admin: 09/10/20 10:55 Dose: 20 mg Documented by: Glucagon (Glucagon 1 Mg/Ml Syringe) 1 mg IM .X1 PRN PRN Reason: Hypoglycemia Hydrocortisone (Hydrocortisone 2.5% Crm) 1 applic TOPICAL TID PRN PRN; Protocol PRN Reason: Discomfort Levothyroxine Sodium (Levothyroxine 125 Mcg Tablet) 125 mcg PO DAILY@0600 [facility] Last Admin: 09/11/20 06:05 Dose: 125 mcg Documented by: Methylergonovine Maleate (Methylergonovine 0.2 Mg/Ml Ampul) 0.2 mg IM X1 PRN PRN Reason: Excess bleeding/uterine atony Last Admin: 09/10/20 03:07 Dose: 0.2 mg Documented by: Naproxen (Naproxen 250 Mg Tablet) 500 mg PO Q8H PRN PRN PRN Reason: Pain Score 1-3 Last Admin: 09/10/20 11:02 Dose: 500 mg Documented by: Ondansetron HCl (Ondansetron 4 Mg/2 Ml Vial) 4 mg IV Q4H PRN PRN PRN Reason: Nausea Oxycodone HCl (Oxycodone 5 Mg Tablet) 5 - 10 mg PO Q4H PRN PRN PRN Reason: Pain Score 4-10 Senna/Docusate Sodium (Senna/Docusate Sodium 1 Tablet) 1 - 2 tablet PO DAILY PRN PRN PRN Reason: Constipation Simethicone (Simethicone 80 Mg Tablet) 80 mg PO P[facility]S PRN PRN Reason: Indigestion/Stomach pain Sodium Chloride (0.9% Saline Lock 10 Ml Syringe) 5 - 15 ml IV UD PRN PRN Reason: SALINE FLUSH Medical Necessity - Tobacco Use Smoking Status: Never smoker Assessment/Plan All Active Problems (Last Reviewed 09/03/20 @ 11:51 by Evelyn Mcdonald) Gestational diabetes (Acute) Rh negative status during (Acute) Depression affecting (Acute) Hypothyroid (Acute) 36 weeks gestation of (Resolved) Late deceleration of heart rate (Resolved) (Resolved) Supervision of high-risk (Resolved) Abdominal trauma (Resolved) Abnormal glucose affecting (Resolved) Active labor at term (Resolved) Asymptomatic bacteriuria during in first trimester (Resolved) Contraception management (Resolved) Depression affecting in third trimester, antepartum (Resolved) Gestational diabetes mellitus (Resolved) Positive GBS test (Resolved) (Resolved) Rh negative status during (Resolved) Short interval between pregnancies affecting , antepartum (Resolved) Supervision of high-risk (Resolved) Supervision of normal (Resolved) s/p PPD # 1 1. routine post delivery care 2. breast feeding- support given 3. rh positive 4. rubella immune
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
== END 2020-09-11 14:29 | disposition home or self-care (01) | DRG 807 ==
LOC: WPOUT 17:28 → WP 09-10 01:42
PROVIDERS: Admitting Provider Obstetrics & Gynecology; PCP Family Medicine; Visit Provider Obstetrics & Gynecology
DX: O76 Abnormality in fetal heart rate and rhythm complicating labor and delivery (principal); O77.0 Labor and delivery complicated by meconium in amniotic fluid; O69.81X0 Labor and delivery complicated by cord around neck, without compression, not applicable or unspecified; O24.420 Gestational diabetes mellitus in childbirth, diet controlled; O99.284 Endocrine, nutritional and metabolic diseases complicating childbirth; E03.9 Hypothyroidism, unspecified; O99.344 Other mental disorders complicating childbirth; F32.9 Major depressive disorder, single episode, unspecified; F41.9 Anxiety disorder, unspecified; Z67.91 Unspecified blood type, Rh negative; Z79.890 Hormone replacement therapy; Z79.899 Other long term (current) drug therapy; Z3A.39 39 weeks gestation of pregnancy; Z37.0 Single live birth
CPT/HCPCS: 59025; 59050; 82962; 85025; 85384; 85460; 85461; 86850; 86870; 86900; 86901; 87426; 90384; 99218; J7120; G0378; J2405; J2790

== ENCOUNTER → 2020-11-01 10:52 | Outpatient (CLI) | payer BC, SELFPAY ==
[2020-11-01 10:30] VITALS: BMI 29.8
[2020-11-01 11:37] LABS: T4 Free Direct 0.96 ng/dL (0.76-1.46); Thyroid Stim Hormone (TSH) 1.17 uIU/mL (0.358-3.74)
[2020-11-04 21:27] LABS: HPV APTIMA, High Risk Negative (Negative)
== END ==
PROVIDERS: PCP Family Medicine; Referring Provider Obstetrics & Gynecology; Visit Provider Obstetrics & Gynecology
DX: Z12.4 Encounter for screening for malignant neoplasm of cervix (principal); E03.9 Hypothyroidism, unspecified
CPT/HCPCS: 36415; 84439; 84443; 87624; 88175; G0145

== ENCOUNTER → 2025-02-26 | Outpatient (CLI) | payer BC, SELFPAY ==
--- NOTE | 2025-02-26 15:35 | US_ITS ---
PROCEDURE: PELVIC (NON ) 02/26/2025 REASON FOR EXAM: IUD PLACEMENT TECHNIQUE: Procedure Code: USPEL Modality: US Procedure: PELVIC (NON ) COMPARISON: None. FINDINGS: Measurements: Uterus: 8.3 x 3.5 x 5.6 cm with a volume of 84.6 mL. Endometrial Thickness: 4 mm. Right Ovary: 2.2 x 1.5 x 1.5 cm with a volume of 2.6 mL. Left Ovary: 1.8 x 1.6 x 2.1 cm with a volume of 3.2 mL. Uterus: An intrauterine device is in satisfactory position within the endometrial canal. No uterine mass or inhomogeneity is seen. Endometrium: No evidence of thickening or focal abnormality. Right ovary: Normal size and echotexture. Left ovary: Normal size and echotexture. Other: No free fluid is seen. US/Pelvic (Non ) IMPRESSION: 1. Satisfactory intrauterine device positioning. 2. No significant abnormality is identified. Reading Location: [place] [id number]
== END | disposition home or self-care (01) ==
LOC: US 15:31
PROVIDERS: PCP Family Medicine; Referring Provider Nurse Practitioner Women's Health; Visit Provider Nurse Practitioner Women's Health
DX: R10.2 Pelvic and perineal pain (principal)
CPT/HCPCS: 76856